=== PATIENT | male | born 1980 | race Caucasian/White ===

== ENCOUNTER 2019-11-09 00:12 | Emergency (ER) | payer OTHER, SELFPAY ==
[2019-11-09 00:15] VITALS: BP 150/97; PULSE 108; RESP 20; TEMP 36.6; O2SAT 99
--- NOTE | 2019-11-09 00:38 | ED.DENTAL ---
HPI - Dental/Oral General Chief complaint: Unspecified Stated complaint: Dental Pain Source: patient Mode of arrival: ambulatory Limitations: no limitations History of Present Illness HPI Narrative: Pain in tooth 27 with swelling and tenderness in right lip x 48 hours. Tooth extracted this AM. Has taken 2 doses of amoxicillin since then. C/o increased swelling of the lip and now pain just below the chin and the floor of his mouth. Pain is worsened by fully opening his mouth. Pt has had a tooth abscess before when amoxicillin was ineffective. Would like a stronger antibiotic. Augmentin and clindamycin have worked in the past; the latter causes abdominal pain. Severity scale (1-10): 4 Related Data Home Medications Medication Instructions Recorded Confirmed losartan 25 mg PO DAILY 07/15/19 11/09/19 Allergies Allergy/AdvReac Type Severity Reaction Status Date / Time No Known Allergies Allergy Unverified 10/03/12 08:06 Review of Systems Constitutional: Constitutional: Denies fever(s) Gastrointestinal: Gastrointestinal: Denies nausea PMFSH Past Medical History Medical History (Updated 11/09/19 @ 00:48 by Satish Calvillo MD) Hypertension Social History Social History (Updated 11/09/19 @ 00:48 by Satish Calvillo MD) Smoking status: Never smoker Gender identity (if verbalized by the patient): Male Exam HENMT: Head: other (no facial swelling or erythema) Mouth: Yes moist mucous membranes Teeth and gingiva: abnormal tooth and associated gingiva (excised and sutured tooth #27 (right mandibular canine)) and other (sublingual tenderness, not indurated. ) Eyes: General: appearance normal, both eyes and all related structures Neck: Neck: no lymphadenopathy (tender in submental node region) Course Vital Signs Vital signs: Vital Signs Temperature 36.6 C 11/09/19 00:15 Pulse Rate 108 H 11/09/19 00:15 Respiratory Rate 11/09/19 00:15 Blood Pressure 150/97 H 11/09/19 00:15 Pulse Oximetry 99 11/09/19 00:15 Temperature 36.6 C 11/09/19 00:48 Pulse Rate 108 H 11/09/19 00:48 Respiratory Rate 20 11/09/19 00:48 Blood Pressure 150/97 H 11/09/19 00:48 Pulse Oximetry 99 11/09/19 00:15 MDM - Dental/Oral MDM Narrative Medical decision making narrative: Previous dental abscess and cellulitis; worsening of the latter after tooth extraction today, vs. soft tissue increased swelling secondary to dental extraction. Amoxillin may not be effective; or may not have had time to work. Pt. does not want to wait another 24 hours to find out if symptoms will worsen. Discharge Plan Discharge Clinical Impression: Cellulitis and abscess of mouth Patient Disposition: Home, Self-Care Condition: Stable Instructions: Antibiotic Form, Dental Abscess (ED) Additional Instructions: Return if worsening symptoms. See dentist in tomorrow, 11/09 if symptoms not improved. Prescriptions: New amoxicillin-pot clavulanate [Augmentin] 875-125 mg tablet 1 tablet PO Q12H Qty: 10 RF: 0 No Action losartan 25 mg tablet 25 mg PO DAILY RF: 0 Follow-up/Referrals: Matthew Nesbitt MD [Primary Care Provider] - Time of Disposition: 00:43 Discharge Date/Time: 11/09/19 00:53
[2019-11-09 00:48] VITALS: BP 150/97; PULSE 108; RESP 20; TEMP 36.6
[2019-11-09] MEDS: AMOXICILLIN/CLAVULANATE K 875-125 MG TAB 1 TABLET PO (00:48)
== END 2019-11-09 00:53 | disposition home or self-care (01) ==
PROVIDERS: Emergency Provider Family Medicine; PCP Family Medicine
DX: K12.2 Cellulitis and abscess of mouth (principal)
CPT/HCPCS: 99283; A9270

== ENCOUNTER 2019-11-27 09:33 | Outpatient (CLI) | payer OTHER, SELFPAY ==
--- NOTE | ~2019-11-27 | XR_ITS ---
XR chest 2V DATE: 11/27/2019 09:55 INDICATION: Shortness of breath, congestion for one week. Acute nasopharyngitis TECHNIQUE: 2 views COMPARISON: 05/01/2019 portable AP chest FINDINGS: Chronic elevation of right leaf of diaphragm. Normal heart size. No hilar or mediastinal enlargement. No pulmonary infiltrate or consolidation, ple ural effusion or pulmonary vascular congestion or pneumothorax. IMPRESSION: No active cardiopulmonary disease Reviewed, dictated and finalized at location B.
[2019-11-27 10:02] LABS: Influenza Control Valid (Valid)
== END 2019-11-27 09:34 | disposition home or self-care (01) ==
PROVIDERS: PCP Family Medicine; Visit Provider Family Medicine
DX: J00 Acute nasopharyngitis [common cold] (principal)
CPT/HCPCS: 71046; 87804

== ENCOUNTER 2020-01-24 17:56 | Outpatient (CLI) | payer OTHER, SELFPAY ==
--- NOTE | ~2020-01-24 | XR_ITS ---
EXAMINATION: XR chest 2V EXAM DATE: 01/24/2020 18:07 INDICATION: Cough. TECHNIQUE: Frontal and lateral projections of the chest obtained and reviewed. Comparison is made to prior examination from 11/27/2019. FINDINGS: The lungs are clear. There are no pleural effusions. The cardiomediastinal silhouette is within normal limits. There is no pneumothorax suspected. The bones and soft tissues are unremarkab le. There is no significant interval change. IMPRESSION: No acute cardiopulmonary findings. Reviewed, dictated and finalized at location A.
== END 2020-01-24 17:57 | disposition home or self-care (01) ==
LOC: CHSIMG 17:57
PROVIDERS: PCP Family Medicine; Visit Provider Family Medicine
DX: R05 Cough (principal)
CPT/HCPCS: 71046

== ENCOUNTER 2020-02-07 08:29 | Outpatient (CLI) | payer OTHER, SELFPAY | END 2020-02-07 08:30 | disposition home or self-care (01) | PROVIDERS: PCP Family Medicine; Visit Provider Family Medicine | DX: R06.02 Shortness of breath (principal) | CPT/HCPCS: 94060; 94726; 94729; 95012 ==

== ENCOUNTER 2020-02-15 17:14 | Outpatient (CLI) | payer OTHER, SELFPAY ==
[2020-02-15 17:25] LABS: Basophils Percent Auto 1.1 % (0.0-1.0); Eosinophils Absolute Auto 0.24 K/mm3 (0.02-0.50); Eosinophils Percent Auto 2.5 % (1.0-6.0); Hemoglobin 13.9 g/dL (14.0-18.0); Immature Granulocyte Absolute 0.05 K/mm3 (0.00-0.00); Immature Granulocyte Percent A 0.5 % (0.0-0.0); Lymphocytes Absolute Auto 3.03 K/mm3 (1.10-4.50); Mean Corpuscular HGB Conc 33.9 g/dL (32.0-36.0); Mean Corpuscular Volume 82.5 fL (78.0-102.0); Mean Platelet Volume 10.2 fl (8.7-11.0); Monocytes Absolute Auto 1.01 K/mm3 (0.10-0.90); Monocytes Percent Auto 10.7 % (2.0-11.0); Neutrophils Absolute Auto 5.1 K/mm3 (1.7-7.2); Neutrophils Percent Auto 53.2 % (50.0-70.0); Platelet Count Result 305 K/mm3 (150-420); Red Blood Count 4.97 M/mm3 (4.70-6.10); White Blood Count 9.5 K/mm3 (4.8-10.8)
[2020-02-15 17:40] LABS: Alanine Aminotransferase 58 U/L (16-63); Albumin Level 3.8 g/dL (3.4-5.0); Alkaline Phosphatase 79 U/L (46-116); Anion Gap 9.8 mmol/L (7-16); Aspartate Amino Transferase 29 U/L (15-37); Bilirubin,Total 0.4 mg/dL (0.00-1.00); Blood Urea Nitrogen 14 mg/dL (7-18); Carbon Dioxide 31 mmol/L (21-32); Chloride 100 mmol/L (98-108); Estimated Glomerular Filt Rate > 60; Glucose 97 mg/dL (70-99); Osmolality Calculated 284 mOsm/kg (285-295); Potassium 3.8 mmol/L (3.5-5.1); Sodium 137 mmol/L (136-145); Total Protein 7.7 g/dL (6.4-8.2)
[2020-02-15 17:53] LABS: D Dimer 0.27 mg/L (0.19-0.50)
== END 2020-02-15 17:15 | disposition home or self-care (01) ==
LOC: CHSLAB 17:16
PROVIDERS: PCP Family Medicine; Visit Provider Family Medicine
DX: M79.662 Pain in left lower leg (principal); R60.0 Localized edema
CPT/HCPCS: 36415; 80053; 85025; 85380

== ENCOUNTER 2020-03-25 09:01 | Outpatient (CLI) | payer OTHER, SELFPAY ==
--- NOTE | ~2020-03-25 | US_ITS ---
EXAMINATION: US venous doppler LE RT EXAM DATE: 03/25/2020 09:36 INDICATION: Right lower rib pain. TECHNIQUE: Multiple grayscale, color flow and Doppler images of the right lower extremity deep venous system were obtained and reviewed. There is no prior study for comparison. FINDINGS: The right common femoral, femoral and profunda veins demonstrate normal color flow, respira tory variation, augmentation and compressibility. Compressibility, color flow confirmed within the r ight popliteal, posterior tibial, peroneal, and greater saphenous veins. IMPRESSION: 1. No right lower extremity deep venous thrombosis. Reviewed, dictated and finalized at location A.
== END 2020-03-25 09:02 | disposition home or self-care (01) ==
PROVIDERS: PCP Family Medicine; Visit Provider Family Medicine
DX: M79.661 Pain in right lower leg (principal)
CPT/HCPCS: 93971

== ENCOUNTER 2020-09-10 11:47 | Outpatient (CLI) | payer OTHER, SELFPAY ==
--- NOTE | ~2020-09-10 | XR_ITS ---
EXAMINATION: XR chest 2V EXAM DATE: 09/10/2020 12:07 INDICATION: Chest pain x 1 day at center anterior chest. TECHNIQUE: Frontal and lateral projections of the chest obtained and reviewed. Comparison is made to prior examination from 01/24/2020. FINDINGS: The lungs are clear. There are no pleural effusions. The cardiomediastinal silhouette is within normal limits. There is no pneumothorax suspected. The bones and soft tissues are unremarkab le. IMPRESSION: No acute cardiopulmonary findings. Reviewed, dictated and finalized at location B. T[employer]ER T[employer]ER
[2020-09-10 12:00] LABS: Basophils Absolute Auto 0.09 K/mm3 (0.00-0.10); Eosinophils Absolute Auto 0.15 K/mm3 (0.02-0.50); Eosinophils Percent Auto 1.6 % (1.0-6.0); Hematocrit 41.9 % (40.0-54.0); Hemoglobin 14.2 g/dL (14.0-18.0); Immature Granulocyte Absolute 0.05 K/mm3 (0.00-0.00); Immature Granulocyte Percent A 0.5 % (0.0-0.0); Lymphocytes Absolute Auto 2.34 K/mm3 (1.10-4.50); Lymphocytes Percent Auto 25.6 % (18.0-42.0); Mean Corpuscular HGB Conc 33.9 g/dL (32.0-36.0); Mean Corpuscular Hemoglobin 27.7 pg (27.0-31.0); Mean Corpuscular Volume 81.8 fL (78.0-102.0); Mean Platelet Volume 10.2 fl (8.7-11.0); Monocytes Absolute Auto 0.86 K/mm3 (0.10-0.90); Monocytes Percent Auto 9.4 % (2.0-11.0); Neutrophils Absolute Auto 5.6 K/mm3 (1.7-7.2); Neutrophils Percent Auto 61.9 % (50.0-70.0); Platelet Count Result 318 K/mm3 (150-420); Red Blood Count 5.12 M/mm3 (4.70-6.10); Red Cell Distribution Width 12.9 % (11.6-14.4); White Blood Count 9.1 K/mm3 (4.8-10.8)
[2020-09-10 12:18] LABS: D Dimer 0.29 mg/L (0.19-0.50)
[2020-09-10 12:29] LABS: Alanine Aminotransferase 57 U/L (16-63); Albumin Level 4.1 g/dL (3.4-5.0); Alkaline Phosphatase 74 U/L (46-116); Amylase 52 U/L (25-115); Anion Gap 8 mmol/L (8-16); Aspartate Amino Transferase 22 U/L (15-37); Bilirubin,Total 0.5 mg/dL (0.00-1.00); Blood Urea Nitrogen 11 mg/dL (7-18); CRP 0.7 mg/dL (0.0-0.9); Calcium 9.2 mg/dL (8.5-10.1); Carbon Dioxide 28 mmol/L (21-32); Chloride 101 mmol/L (98-108); Creatine Kinase 151 U/L (39-308); Estimated Glomerular Filt Rate > 60; Glucose 104 mg/dL (70-99); Lipase 59 U/L (73-393); Osmolality Calculated 283 mOsm/kg (285-295); Potassium 4.1 mmol/L (3.5-5.1); Sodium 137 mmol/L (136-145); Thyroid Stimulating Hormone 1.08 uIU/mL (0.36-3.74); Total Protein 8.3 g/dL (6.4-8.2); Troponin I 5.2 ng/L (0.00-60.4)
[2020-09-12 18:00] LABS: H pylori, Urea Breath NOT DETECTED (NOT DETECTED)
== END 2020-09-10 11:48 | disposition home or self-care (01) ==
LOC: CHSLAB 11:49
PROVIDERS: PCP Family Medicine; Visit Provider Nurse Practitioner Family
DX: R07.9 Chest pain, unspecified (principal)
CPT/HCPCS: 36415; 71046; 80053; 82150; 82550; 82553; 83013; 83690; 84443; 84484; 85025; 85380; 86140

== ENCOUNTER 2020-11-18 12:13 | Emergency (ER) | payer OTHER, SELFPAY ==
--- NOTE | 2020-11-18 12:20 | ECG_ITS ---
Measurements Intervals [place] Rate: 93 P: 61 MN: 160 QRS: 55 QRSD: 84 T: 43 QT: 367 QTc: 457 Interpretive Statements SINUS RHYTHM FREQUENT VENTRICULAR PREMATURE COMPLEXES INCOMPLETE RIGHT BUNDLE BRANCH BLOCK DELAYED PRECORDIAL R/S TRANSITION ABNORMAL ECG Electronically Signed On 11-18-2020 13:08:54 CDT by Edgar Zuñiga D.O.
[2020-11-18 12:21] VITALS: BP 147/87; PULSE 94; RESP 14; TEMP 36.2; O2SAT 100
[2020-11-18 12:39] LABS: Eosinophils Absolute Auto 0.23 K/mm3 (0.02-0.50); Eosinophils Percent Auto 2.4 % (1.0-6.0); Hematocrit 40.1 % (40.0-54.0); Hemoglobin 13.8 g/dL (14.0-18.0); Immature Granulocyte Absolute 0.07 K/mm3 (0.00-0.00); Immature Granulocyte Percent A 0.7 % (0.0-0.0); Lymphocytes Absolute Auto 3.04 K/mm3 (1.10-4.50); Lymphocytes Percent Auto 31.3 % (18.0-42.0); Mean Corpuscular HGB Conc 34.4 g/dL (32.0-36.0); Mean Corpuscular Hemoglobin 28.2 pg (27.0-31.0); Mean Corpuscular Volume 81.8 fL (78.0-102.0); Mean Platelet Volume 10.6 fl (8.7-11.0); Monocytes Percent Auto 8.2 % (2.0-11.0); Neutrophils Absolute Auto 5.5 K/mm3 (1.7-7.2); Neutrophils Percent Auto 56.4 % (50.0-70.0); Platelet Count Result 309 K/mm3 (150-420); Red Cell Distribution Width 12.6 % (11.6-14.4); White Blood Count 9.7 K/mm3 (4.8-10.8)
[2020-11-18] MEDS: SODIUM CHLORIDE 0.9% IV 500 ML 999 ML IV CONT (13:00)
[2020-11-18 13:06] LABS: Alanine Aminotransferase 54 U/L (16-63); Albumin Level 3.9 g/dL (3.4-5.0); Alkaline Phosphatase 72 U/L (46-116); Anion Gap 12 mmol/L (8-16); Aspartate Amino Transferase 29 U/L (15-37); Bilirubin,Total 0.7 mg/dL (0.00-1.00); Blood Urea Nitrogen 14 mg/dL (7-18); Carbon Dioxide 27 mmol/L (21-32); Chloride 99 mmol/L (98-108); Estimated CRCL calculation 98 ml/min; Estimated Glomerular Filt Rate > 60; Glucose 110 mg/dL (70-99); Osmolality Calculated 287 mOsm/kg (285-295); Potassium 3.6 mmol/L (3.5-5.1); Sodium 138 mmol/L (136-145); Thyroid Stimulating Hormone 1.28 uIU/mL (0.36-3.74); Total Protein 7.8 g/dL (6.4-8.2); Troponin I 6.1 ng/L (0.00-60.4)
--- NOTE | 2020-11-18 13:24 | ED.GENADULT ---
HPI - General Adult General Chief complaint: Unspecified Stated complaint: heart palpatations since this am Source: patient History of Present Illness HPI narrative: patient presents with feeling of palpitations started earlier today no other symptoms involved, patient denies any chest pain shortness of breath no abdominal pain no headache or blurry vision no fever or chills, currently no nausea vomiting. The patient had these palpitations start and they causing some concern for the patient although he has no other symptoms. He said he had an episode like this back when he was a teenager, the only past medical history as is that of hypertension that he was taking losartan. Patient is not a smoker and no alcohol use no illicit drug use. Onset (ago): hour(s) Severity: mild Related Data Home Medications Medication Instructions Recorded Confirmed losartan 25 mg PO DAILY 07/15/19 11/18/20 Allergies Allergy/AdvReac Type Severity Reaction Status Date / Time No Known Allergies Allergy Unverified 10/03/12 08:06 Review of Systems Review of Systems: All systems reviewed & are unremarkable except as noted in HPI and below PMFSH Past Medical History Medical History Hypertension Social History Social History Smoking status: Never smoker Gender identity (if verbalized by the patient): Male Exam Const: General: cooperative, healthy appearing, comfortable, no acute distress, well developed, alert, awake and Physically active HENMT: Head: normal to inspection Ears: hearing grossly normal bilaterally General nose exam: Normal external nose present Face and sinus: normal facial exam and sinuses nontender Throat: posterior oropharynx normal Eyes: General: appearance normal, both eyes and all related structures Visual Espino: normal visual espino by confrontation Periorbital: periorbital findings normal Sclera: sclerae normal Pupils: Equal, round and reactive pupils present Chest: Chest palpation & inspection: normal inspection of the chest Breast/axilla inspection: normal inspection of the breasts Cardio: Jugular venous distension: no JVD Palpation: normal PMI Rate: regular rate Rhythm: other ( Occasional palpitations) Heart sounds: S1 normal heart sound present and S2 normal heart sound present GI: Inspection: normal to inspection Percussion: Yes normal to percussion Back/Spine/Pelvis: Back: no CVA tenderness Skin: General skin exam: normal color and no rashes or lesions noted Neuro: General: oriented to person, oriented to place, oriented to time, patient oriented x3 and gait normal Psych: Appearance: grossly normal and well kempt Mental Status: mental status grossly normal Course Course Emergency Course: patient received IV fluids, a dose of magnesium and potassium, reviewed lab work and EKG with the patient patient is more comfortable and advised to follow with his primary care physician. Vital Signs Vital signs: Vital Signs Temperature 36.2 C L 11/18/20 12:21 Pulse Rate 94 11/18/20 12:21 Respiratory Rate 14 11/18/20 12:21 Blood Pressure 147/87 H 11/18/20 12:21 Pulse Oximetry 100 11/18/20 12:21 Temperature 36.2 C L 11/18/20 12:21 Pulse Rate 94 11/18/20 12:21 Respiratory Rate 14 11/18/20 12:21 Blood Pressure 147/87 H 11/18/20 12:21 Pulse Oximetry 100 11/18/20 12:21 Medical Decision Making Vital Signs Vital Signs: Vital Signs Temperature 36.2 C L 11/18/20 12:21 Pulse Rate 94 11/18/20 12:21 Respiratory Rate 14 11/18/20 12:21 Blood Pressure 147/87 H 11/18/20 12:21 Pulse Oximetry 100 11/18/20 12:21 Temperature 36.2 C L 11/18/20 12:21 Pulse Rate 94 11/18/20 12:21 Respiratory Rate 14 11/18/20 12:21 Blood Pressure 147/87 H 11/18/20 12:21 Pulse Oximetry 100 11/18/20 12:21 Lab Data Result diagrams: 11/18/20 12:34
[2020-11-18] MEDS: MAGNESIUM OXIDE 400 MG TABLET PO (13:38)
[2020-11-18] MEDS: POTASSIUM CHLORIDE 20 MEQ TABLET 40 MEQ PO (13:38)
[2020-11-18 13:41] VITALS: BP 119/82; PULSE 87; RESP 18; O2SAT 98
== END 2020-11-18 13:42 | disposition home or self-care (01) ==
PROVIDERS: Emergency Provider Emergency Medicine; PCP Family Medicine
DX: R00.2 Palpitations (principal); I49.3 Ventricular premature depolarization
CPT/HCPCS: 36415; 80053; 83735; 84443; 84484; 85025; 93005; 96360; 99283; 99284; A9270; J7040

== ENCOUNTER 2021-02-04 11:45 | Outpatient (CLI) | payer OTHER, SELFPAY ==
--- NOTE | ~2021-02-04 | XR_ITS ---
EXAMINATION: XR ankle RT min 3V DATE: 02/04/2021 12:11 INDICATION: Right ankle pain. TECHNIQUE: 4 views of right ankle were obtained. COMPARISON: None. FINDINGS: Bone alignment is normal. No fracture. There is mild osteoarthritis of talonavicular joint. There is an enthesophyte at posterior aspect of calcaneal tuberosity. IMPRESSION: 1. Mild osteoarthritis of talonavicular joint. Reviewed, dictated and finalized at location A.
== END 2021-02-04 11:46 | disposition home or self-care (01) ==
LOC: CHSIMG 11:47
PROVIDERS: PCP Family Medicine; Visit Provider Family Medicine
DX: M25.571 Pain in right ankle and joints of right foot (principal)
CPT/HCPCS: 73610

== ENCOUNTER 2021-04-10 08:33 | Outpatient (CLI) | payer OTHER, SELFPAY ==
--- NOTE | 2021-04-11 12:47 | WPDHOLTEREM ---
Holter/Event Monitor Holter/Event Monitor Date of procedure: 04/10/21 Holter/Event Procedure: 24 Hr Holter Monitor Indications: Palpitations Conclusion: 1. 24 hour holter monitor on 04/10/21. 2. Underlying rhythm is sinus rhythm. HR range 46-162 bpm; average HR 78 bpm. 3. There is 1 premature supraventricular complex. No supraventricular tachycardia. 4. No premature ventricular complex. No ventricular tachycardia. 5. No sinoatrial or atrioventricular blocks. No significant pauses greater than 2 seconds. 6. No symptoms available for correlation.
== END 2021-04-10 08:34 | disposition home or self-care (01) ==
LOC: CHSCARD 08:35
PROVIDERS: PCP Family Medicine; Visit Provider Family Medicine
DX: R00.2 Palpitations (principal)
CPT/HCPCS: 93225; 93226

== ENCOUNTER 2021-05-12 11:15 | Outpatient (CLI) | payer OTHER, SELFPAY ==
[2021-05-12 13:01] LABS: SARS-CoV-2 RNA PCR Negative (Negative)
== END 2021-05-12 11:16 | disposition home or self-care (01) ==
LOC: CHSLAB 11:18
PROVIDERS: PCP Family Medicine; Visit Provider Family Medicine
DX: J02.9 Acute pharyngitis, unspecified (principal); Z20.822 Contact with and (suspected) exposure to COVID-19
CPT/HCPCS: 87081; 87880; C9803; U0003; U0005

== ENCOUNTER 2022-03-27 16:16 | Outpatient (CLI) | payer OTHER, SELFPAY ==
[2022-03-27 17:13] LABS: Strep Group A RT-PCR Negative (Negative)
[2022-03-27 17:15] LABS: Influenza A QL RT-PCR Negative (Negative); Influenza B QL RT-PCR Negative (Negative); SARS-CoV-2 RNA PCR Negative (Negative)
== END 2022-03-27 16:17 | disposition home or self-care (01) ==
LOC: CHSLAB 16:18
PROVIDERS: PCP Family Medicine; Visit Provider Family Medicine
DX: J02.9 Acute pharyngitis, unspecified (principal); Z20.822 Contact with and (suspected) exposure to COVID-19
CPT/HCPCS: 87502; 87651; C9803; U0003; U0005

== ENCOUNTER 2023-04-19 16:37 | Outpatient (CLI) | payer OTHER, SELFPAY ==
[2023-04-19 17:36] LABS: Influenza A QL RT-PCR Negative (Negative); Influenza B QL RT-PCR Negative (Negative); SARS-CoV-2 RNA PCR Negative (Negative)
[2023-04-19 17:41] LABS: Strep Group A RT-PCR NOT DETECTED (Negative)
== END 2023-04-19 16:38 | disposition home or self-care (01) ==
LOC: CHSLAB 16:39
PROVIDERS: PCP Family Medicine; Visit Provider Family Medicine
DX: J06.9 Acute upper respiratory infection, unspecified (principal); Z20.822 Contact with and (suspected) exposure to COVID-19
CPT/HCPCS: 87636; 87651

== ENCOUNTER 2023-05-01 13:23 | Outpatient (CLI) | payer OTHER, SELFPAY ==
--- NOTE | ~2023-05-01 | XR_ITS ---
AP and lateral views of the right tibia/fibula Clinical History: Trauma Findings: No acute fracture or dislocation is seen. Osseous alignment is anatomic. Joint spaces are p reserved without significant erosive or degenerative change. Soft tissues are unremarkable. Impression: Unremarkable right tib-fib radiographs. Reviewed, dictated and finalized at [facility]. Impression: Unremarkable right tib-fib radiographs.
== END 2023-05-01 13:24 | disposition home or self-care (01) ==
LOC: CHSIMG 13:26
PROVIDERS: PCP Family Medicine; Visit Provider Family Medicine
DX: M79.604 Pain in right leg (principal)
CPT/HCPCS: 73590

== ENCOUNTER 2023-05-10 13:10 | Outpatient (CLI) | payer OTHER, SELFPAY ==
[2023-05-10 13:56] LABS: Influenza A QL RT-PCR Negative (Negative); Influenza B QL RT-PCR Negative (Negative); SARS-CoV-2 RNA PCR Positive (Negative)
[2023-05-10 14:11] LABS: Strep Group A RT-PCR NOT DETECTED (Negative)
== END 2023-05-10 13:11 | disposition home or self-care (01) ==
LOC: CHSLAB 13:12
PROVIDERS: PCP Family Medicine; Visit Provider Family Medicine
DX: U07.1 COVID-19 (principal); J06.9 Acute upper respiratory infection, unspecified
CPT/HCPCS: 87636; 87651

== ENCOUNTER 2023-08-09 16:09 | Outpatient (CLI) | payer OTHER, SELFPAY ==
[2023-08-09 16:31] LABS: Basophils Absolute Auto 0.12 K/mm3 (0.00-0.10); Eosinophils Absolute Auto 0.24 K/mm3 (0.02-0.50); Eosinophils Percent Auto 2.1 % (1.0-6.0); Hematocrit 41.4 % (40.0-54.0); Hemoglobin 13.7 g/dL (14.0-18.0); Immature Granulocyte Absolute 0.09 K/mm3 (0.00-0.00); Immature Granulocyte Percent A 0.8 % (0.0-0.0); Lymphocytes Absolute Auto 3.47 K/mm3 (1.10-4.50); Mean Corpuscular HGB Conc 33.1 g/dL (32.0-36.0); Mean Corpuscular Hemoglobin 27.6 pg (27.0-31.0); Mean Corpuscular Volume 83.3 fL (78.0-102.0); Mean Platelet Volume 10.4 fl (8.7-11.0); Monocytes Absolute Auto 1.12 K/mm3 (0.10-0.90); Monocytes Percent Auto 9.7 % (2.0-11.0); Neutrophils Absolute Auto 6.5 K/mm3 (1.7-7.2); Neutrophils Percent Auto 56.4 % (50.0-70.0); Platelet Count Result 355 K/mm3 (150-420); Red Blood Count 4.97 M/mm3 (4.70-6.10); Red Cell Distribution Width 13.2 % (11.6-14.4); White Blood Count 11.6 K/mm3 (4.8-10.8)
[2023-08-09 16:39] LABS: D Dimer 0.27 mg/L (0.19-0.50)
[2023-08-09 16:45] LABS: Alanine Aminotransferase 60 U/L (16-63); Albumin Level 3.8 g/dL (3.4-5.0); Alkaline Phosphatase 70 U/L (46-116); Anion Gap 1 mmol/L (8-16); Aspartate Amino Transferase 26 U/L (15-37); Bilirubin,Total 0.4 mg/dL (0.00-1.00); Blood Urea Nitrogen 11 mg/dL (7-18); Calcium 9.2 mg/dL (8.5-10.1); Carbon Dioxide 34 mmol/L (21-32); Chloride 101 mmol/L (98-108); Estimated Glomerular Filt Rate > 60; Glucose 97 mg/dL (70-99); Osmolality Calculated 281 mOsm/kg (285-295); Potassium 4.2 mmol/L (3.5-5.1); Sodium 136 mmol/L (136-145); Total Protein 7.9 g/dL (6.4-8.2)
== END 2023-08-09 16:10 | disposition home or self-care (01) ==
LOC: CHSLAB 16:11
PROVIDERS: PCP Family Medicine; Visit Provider Family Medicine
DX: M79.652 Pain in left thigh (principal)
CPT/HCPCS: 36415; 80053; 85025; 85380

== ENCOUNTER 2023-09-28 10:36 | Outpatient (CLI) | payer OTHER, SELFPAY ==
[2023-09-28 11:12] LABS: Strep Group A RT-PCR NOT DETECTED (Negative)
[2023-09-28 11:23] LABS: Influenza A QL RT-PCR Negative (Negative); Influenza B QL RT-PCR Negative (Negative); SARS-CoV-2 RNA PCR Negative (Negative)
== END 2023-09-28 10:37 | disposition home or self-care (01) ==
LOC: CHSLAB 10:37
PROVIDERS: PCP Family Medicine; Visit Provider Family Medicine
DX: J02.9 Acute pharyngitis, unspecified (principal)
CPT/HCPCS: 87636; 87651

== ENCOUNTER 2023-12-07 16:54 | Emergency (ER) | payer OTHER, SELFPAY ==
[2023-12-07 16:54] VITALS: BP 166/95; PULSE 99; RESP 16; TEMP 36.7; O2SAT 100
--- NOTE | 2023-12-07 16:57 | ED.EAR ---
HPI - Ear Problem General Chief complaint: Ear Stated complaint: ear pain Time Seen by Provider: 12/07/23 16:57 Source: patient Mode of arrival: ambulatory Limitations: no limitations History of Present Illness HPI Narrative: Patient is a 43-year-old male with left ear pain for the past day. Complaint: ear pain Location: left ear Duration: constant Severity: moderate Relieving factors: nothing Exacerbating factors: palpation Discharge from ear: Reports no Associated symptoms ear: decreased hearing and external ear tenderness ( Left) Treatment prior to arrival: none Related Data Home Medications Medication Instructions Recorded Confirmed losartan 25 mg tablet 25 mg PO DAILY 07/15/19 12/07/23 Allergies Allergy/AdvReac Type Severity Reaction Status Date / Time No Known Allergies Allergy Verified 12/07/23 17:06 Review of Systems Review of Systems: All systems reviewed & are unremarkable except as noted in HPI and below Constitutional: Constitutional: Reports no additional constitutional complaints Eyes: Eyes: Reports no additional eye complaints ENT: Reports system reviewed and no additional complaints, except as documented Cardiovascular: Cardiovascular: Reports no additional cardiovascular complaints Respiratory: Respiratory: Reports no additional respiratory complaints Gastrointestinal: Gastrointestinal: Reports no additional gastrointestinal complaints Genitourinary: Genitourinary: Reports no additional male genitourinary complaints Musculoskeletal: Musculoskeletal: Reports no additional musculoskeletal complaints Integumentary/Breasts: Skin/Breast: Reports system reviewed and no additional complaints, except as docu Neurologic: Reports system reviewed and no additional complaints, except as documented Psychiatric: Psychiatric: Reports no additional psychiatric complaints Endocrine: Endocrine: Reports no additional endocrine complaints Hematologic/Lymphatic: Hematologic/Lymphatic: Reports no additional hematologic/lymphatic complaints Allergic/Immunologic: Allergic/Immunologic: Reports no additional allergic/immunologic complaints PMFSH Past Medical History Medical History Hypertension Social History Social History Smoking status: Never smoker Gender identity (if verbalized by the patient): Male Exam Const: General: healthy appearing Nutritional Appearance: well nourished Orientation/consciousness: patient oriented x3 HENMT: Head: normal to inspection Ears: external ears normal Face/Nose/Sinus: Normal external nose present Other: left auditory canal is red and inflamed and tender; unable to completely see the tympanic membrane but it does appear somewhat red; wax bilateral Eyes: Conjunctivae: conjunctivae normal Pupils: Equal, round and reactive pupils present EOM: EOMs intact bilaterally Neck: Neck: normal visual inspection Chest: Chest palpation & inspection: normal inspection of the chest Resp: Effort & Inspection: normal respiratory effort and not labored Auscultation: clear to auscultation bilaterally Cardio: Rate: regular rate Rhythm: regular rhythm Heart sounds: no murmurs GI: Inspection: non-distended GI Palp: Yes Soft to palpation and No Tenderness to palpation present (GI) Auscultation: normal bowel sounds : General: Yes bladder normal to palpation Back/Spine/Pelvis: Back: no CVA tenderness Skin: General skin exam: normal color Rashes: no rashes Wounds: no wounds Neuro: General: patient oriented x3 Cranial nerves: Yes Nystagmus not present Speech: normal speech Extrem: General: normal to inspection Psych: Mental Status: mental status grossly normal Affect: normal affect Attitude: cooperative Course Vital Signs Vital signs: Vital Signs Temperature 36.7 C 12/07/23 16:54 Pulse Rate 99 12/07/23 16:54 Respi
== END 2023-12-07 17:35 | disposition home or self-care (01) ==
LOC: CHSED 17:29
PROVIDERS: Emergency Provider Emergency Medicine; PCP Family Medicine
DX: H60.502 Unspecified acute noninfective otitis externa, left ear (principal); H66.92 Otitis media, unspecified, left ear; I10 Essential (primary) hypertension
CPT/HCPCS: 99283

== ENCOUNTER 2024-02-03 16:51 | Emergency (ER) | payer OTHER, SELFPAY ==
[2024-02-03 17:15] VITALS: BP 171/96; PULSE 90; RESP 18; TEMP 36.6; O2SAT 97
--- NOTE | 2024-02-03 18:26 | ED.ANIMALBIT ---
HPI - Animal Bite General Chief Complaint: Animal Bite Stated Complaint: bat encounter, ?rabies vaccine?, from pcp Time Seen by Provider: 02/03/24 17:35 History of Present Illness HPI narrative: 43-year-old male presents to the emergency department with concerns for eating a possible rabies vaccination. Patient states 2 days ago he was standing around his pool when he noticed a bat flying around the pool. It was sitting on the concrete then approximately 7 ft away from him. He contacted animal control and was asked if the bat mold runner bit him to which he believed it did not. He then followed up with his PCP who advised the patient to come to the ED for further evaluation. The patient does not recall being bitten or scratched by the bat but he wants a 2nd opinion to see if he needs a rabies vaccine. no other complaints. Related Data Home Medications Medication Instructions Recorded Confirmed losartan 25 mg tablet 25 mg PO DAILY 07/15/19 12/07/23 Allergies Allergy/AdvReac Type Severity Reaction Status Date / Time No Known Allergies Allergy Verified 02/03/24 17:41 Review of Systems Review of Systems: CONSTITUTIONAL: Denies fever, chills, or sweats. EYES: Denies visual changes, redness, or discharge. ENT: Denies rhinorrhea, congestion, sore throat, or otalgia. CARDIOVASCULAR: Denies chest pain, palpitations, or edema. RESPIRATORY: Denies cough or dyspnea. GASTROINTESTINAL: Denies abdominal pain, nausea, vomiting, or diarrhea. GENITOURINARY: Denies dysuria or hematuria. SKIN: See HPI MUSCULOSKELETAL: Denies back pain, joint pain, or myalgia. NEUROLOGIC: Denies headache, numbness, or weakness. PSYCHIATRIC: Denies anxiety or depression. PMFSH Past Medical History Medical History Hypertension Social History Social History Smoking status: Never smoker Gender identity (if verbalized by the patient): Male Exam Narrative: GENERAL: Well-appearing, well-nourished, and in no acute distress. HEAD: Normocephalic, atraumatic. EYES: PERRLA and EOMI. ENT: Nares clear, no rhinorrhea or epistaxis. Mucous membranes moist. NECK: Supple. CHEST: Clear to auscultation. No respiratory distress. HEART: Regular rate and rhythm. No murmur heard. Normal peripheral pulses. EXTREMITIES: Normal range of motion. No edema. SKIN: no scratch days, bite rader, puncture wounds or skin compromise throughout scalp, face, back, chest abdomen, upper and lower extremities, hands and feet. NEURO: No focal deficits. Alert and oriented x3 Course Vital Signs Vital signs: Vital Signs Temperature 97.8 F 02/03/24 17:15 Pulse Rate 90 02/03/24 17:15 Respiratory Rate 18 02/03/24 17:15 Blood Pressure 171/96 H 02/03/24 17:15 Pulse Oximetry 97 02/03/24 17:15 Oxygen Delivery Room Air 02/03/24 17:15 Temperature 97.8 F 02/03/24 17:15 Pulse Rate 90 02/03/24 17:15 Respiratory Rate 18 02/03/24 17:15 Blood Pressure 171/96 H 02/03/24 17:15 Pulse Oximetry 97 02/03/24 17:15 Oxygen Delivery Room Air 02/03/24 17:15 MDM - Animal Bite MDM Narrative Medical decision making narrative: 43-year-old male presents to emergency department desiring a 2nd opinion or if he needs a rabies vaccine. He does not recall being bitten or scratched by the bat but wants to be evaluated. He has no other complaints. Triage vital significant for hypertension of 171/96, otherwise unremarkable. He does have a history of hypertension. I did a full skin exam is and did not identify any puncture wounds or scratches, there are no bite rader. He I feel since the patient was awake and alert and he was outside and he does not recall a specific scratch or bite, there is no need for rabies vaccination at this time. He is in agreement with this. Will discharge him home with PCP follow-up. Return precautions discu
== END 2024-02-03 18:40 | disposition home or self-care (01) ==
PROVIDERS: Emergency Provider Physician Assistant; PCP Family Medicine
DX: Z20.3 Contact with and (suspected) exposure to rabies (principal); I10 Essential (primary) hypertension
CPT/HCPCS: 99282

== ENCOUNTER 2024-03-01 16:32 | Outpatient (CLI) | payer OTHER, SELFPAY ==
--- NOTE | ~2024-03-01 | XR_ITS ---
3 VIEWS LUMBAR SPINE Ordering provider: Matthew Nesbitt MD History: . Low back pain . Comparison: None. FINDINGS: VERTEBRAL BODIES: No visible fracture or subluxation. Degenerative changes of the lower thoracic area . DISK SPACES: Normal. Facet joint disease at the level of L4-L5 and L5-S1. SOFT TISSUES: Normal. IMPRESSION: No acute osseous abnormality lumbar spine. Consider follow up MRI lumbar spine if there is concern for spinal stenosis/neural impingement. Reviewed, dictated and finalized at location A. IMPRESSION: No acute osseous abnormality lumbar spine. Consider follow up MRI lumbar spine if there is concern for spinal stenosis/john ral impingement.
== END 2024-03-01 16:33 | disposition home or self-care (01) ==
LOC: CHSIMG 16:34
PROVIDERS: PCP Family Medicine; Visit Provider Family Medicine
DX: M54.50 Low back pain, unspecified (principal)
CPT/HCPCS: 72100

== ENCOUNTER 2024-03-21 15:52 | Outpatient (RCR) | payer OTHER, SELFPAY ==
--- NOTE | 2024-03-21 16:48 | OPREHPOC ---
Outpatient Therapy Plan of Care This is a Multidisciplinary Plan of Care that may contain components documented by all disciplines (PT, OT, and ST.) PT Problem 1 PT Problem #1 Knowledge Deficit PT Goal 1 Goal 1. independent and compliant with HEP Target Visit 4 PT Problem 2 PT Problem #2 Pain PT Goal 1 Goal 1. no pain in the lower back with prior level activities Target Visit 9 PT Problem 3 PT Problem #3 Impaired Strength PT Goal 1 Goal 1. 5/5 bilateral hip ext 2. 4/5 core strength Target Visit 9 PT Problem 4 PT Problem #4 Impaired Functional Mobil PT Goal 1 Goal 1. full active lumbar rom without pain 2. patient to ambulate with normal gait mechanics 3. oswestry to display 0% functional deficits 4. patient to return to skate boarding and functional activities with his son Target Visit 9
--- NOTE | 2024-03-21 16:49 | PTOPEVAL1 ---
Assessment and note entered by JT File, PT Evaluation Information Assessment Status Evaluation ICD-10 Condition Codes (PT) Pain in low back M54.50 Onset 02/15/24 Subjective Information patient reports around 02/15/24, he was skate boarding and was awkwardly positioned trying to learn a trick on a half pipe. 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 he reports he has increased pain and symptoms with laying on his side and let his L leg hang down. he reports sitting is a bit uncomfortable. he reports he does have pain at times along the L hip and down the L thigh. he has had an x-ray with results of mild arthritis. he reports he would like to get back to skate boarding and also sitting to work and perform home activities without pain. Reported Pain Level Pain Score 2: Self Report Assessment PT Clinical Summary mr. conde is a 43 yo man who presents to skilled PT services for evaluation and treatment of lower back pain that radiates into the L LE from an injury while skate boarding with his son. he presents this date with no signs of discoid involvement, but likely an acute flare up of facet hypertrophy. he displays decreased core strength, weak hip extension, tight hip mm's, and poor posture. continued skilled PT is indicated to improve patients objective/functional deficits and progress towards a return to his prior level functional activity performance quality of life. Plan of Care Interventions Electrical Stimulation,Gait Training,Hot Pack/Cold Pack,Manual Therapy,Neuro Re-education,Patient/ Caregiver Educati,Therapeutic Activities, Therapeutic Exercise PT Services Indicated Yes Treatment Frequency and 3x weekly for 9 visits Duration These treatments will address the objective and functional deficits as defined above. The patient will be advanced safely and appropriately in order for the patient to progress towards his/her prior level of function. Additional exercises will be introduced and as well as a comprehensive home exercise program upon discharge, if needed, ?to ensure carryover of functional gains achieved in the clinic. This treatment plan has been reviewed and agreement upon by the patient.
--- NOTE | 2024-03-23 07:48 | PCPTNOTE ---
Patient cancelled session today. He reports he will now be working until 6 pm every day and is not sure if he can make therapy at all. Pt reports he will do his stretches, and call his doctor if he is not getting better.
--- NOTE | 2024-04-11 16:47 | OPREHPOC ---
Outpatient Therapy Plan of Care This is a Multidisciplinary Plan of Care that may contain components documented by all disciplines (PT, OT, and ST.) PT Problem 1 PT Problem #1 Knowledge Deficit PT Goal 1 Goal 1. independent and compliant with HEP Target Visit 4 Progress Met PT Problem 2 PT Problem #2 Pain PT Goal 1 Goal 1. no pain in the lower back with prior level activities Target Visit 9 PT Problem 3 PT Problem #3 Impaired Strength PT Goal 1 Goal 1. 5/5 bilateral hip ext 2. 4/5 core strength Target Visit 9 PT Problem 4 PT Problem #4 Impaired Functional Mobil PT Goal 1 Goal 1. full active lumbar rom without pain 2. patient to ambulate with normal gait mechanics 3. oswestry to display 0% functional deficits 4. patient to return to skate boarding and functional activities with his son 5. mild or less bilateral piriformis mm tightness 6. 20 degrees or less bilateral hamstrings tightness per the 90/90 test Target Visit 9
--- NOTE | 2024-04-11 16:47 | PTOPPROG ---
Assessment and note entered by JT File, PT Evaluation Information Assessment Status Progress ICD-10 Condition Codes (PT) Pain in low back M54.50 Onset 02/15/24 Subjective Information patient reports pain is increased in the mornings. he reports he gets some relief with jogging in place. 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 he reports he has been doing some of his exercises at home, but still has pain in the lower back and some times along the L LE. Assessment PT Clinical Summary mr. conde has not been to skilled PT since his initial evaluation on 03/21/24. he returns to skilled PT today with reports of a more open schedule, and reports he is now able to be compliant with a bi-weekly POC. he continues to have deficits in hip extension strength, core strength, flexibility, and functional activity performance. he is also limited due to pain in the lower back and L LE. continued skilled PT is indicated to improve patients objective/functional deficits to achieve goals and return to prior level functional activity performance. Plan of Care Interventions Electrical Stimulation,Gait Training,Hot Pack/Cold Pack,Manual Therapy,Neuro Re-education,Patient/ Caregiver Educati,Therapeutic Activities, Therapeutic Exercise PT Services Indicated Yes Treatment Frequency and continue skilled PT 2x weekly for 9 total visits Duration from initial evaluation. These treatments will address the objective and functional deficits as defined above. The patient will be advanced safely and appropriately in order for the patient to progress towards his/her prior level of function. Additional exercises will be introduced and as well as a comprehensive home exercise program upon discharge, if needed, ?to ensure carryover of functional gains achieved in the clinic. This treatment plan has been reviewed and agreement upon by the patient.
== END 2024-04-13 08:30 | disposition home or self-care (01) ==
LOC: CHSPT 15:52
PROVIDERS: Visit Provider Family Medicine
DX: M54.50 Low back pain, unspecified (principal)
CPT/HCPCS: 97110; 97112; 97140; 97161

== ENCOUNTER 2024-04-25 09:54 | Outpatient (CLI) | payer OTHER, SELFPAY ==
[2024-04-25 10:36] LABS: Strep Group A RT-PCR NOT DETECTED (Negative)
[2024-04-25 10:46] LABS: SARS-CoV-2 RNA PCR Positive (Negative)
[2024-04-25 10:49] LABS: Influenza A QL RT-PCR Negative (Negative); Influenza B QL RT-PCR Negative (Negative); RSV RNA, RT-PCR Negative (Negative)
== END 2024-04-25 09:55 | disposition home or self-care (01) ==
LOC: CHSLAB 09:56
PROVIDERS: PCP Family Medicine; Visit Provider Family Medicine
DX: U07.1 COVID-19 (principal); J06.9 Acute upper respiratory infection, unspecified
CPT/HCPCS: 87637; 87651

== ENCOUNTER 2024-05-24 23:35 | Emergency (ER) | payer OTHER, SELFPAY ==
[2024-05-24 23:38] VITALS: BP 178/112; PULSE 103; RESP 18; TEMP 36.2; O2SAT 98
--- NOTE | 2024-05-24 23:49 | ED.MALEGU ---
HPI - Male Genitourinary General Chief complaint: Urogenital-Male Stated complaint: Testicular Problem Time Seen by Provider: 05/24/24 23:48 Source: patient Mode of arrival: ambulatory Limitations: no limitations History of Present Illness HPI Narrative: PATIENT COMPLAINING OF SOME PAIN AND REDNESS AT THE RIGHT SIDE OF THE SCROTUM STARTED 4 DAYS AGO. STARTED ON BACTRIM AND CEPHALIC SEEN 2 DAYS LATER BY HIS FAMILY PHYSICIAN. PATIENT CAME TO OUR EMERGENCY ROOM CONCERNING ABOUT THE POSSIBILITY OF CANCER. HE DENIES ANY FEVER, CHILLS, NAUSEA, VOMITING. PATIENT IS NOT SEXUALLY ACTIVE FOR THE LAST 3 YEARS. DENIES ANY URINARY SYMPTOMS. Related Data Home Medications Medication Instructions Recorded Confirmed losartan 25 mg tablet 25 mg PO DAILY 07/15/19 05/24/24 Allergies Allergy/AdvReac Type Severity Reaction Status Date / Time No Known Allergies Allergy Verified 05/24/24 23:51 Review of Systems Review of Systems: All systems reviewed & are unremarkable except as noted in HPI and below PMFSH Past Medical History Medical History Hypertension Social History Social History Smoking status: Never smoker Gender identity (if verbalized by the patient): Male Exam Narrative: GENERAL APPEARANCE: WELL-DEVELOPED, WELL-NOURISHED SKIN: NORMAL COLOR ABDOMEN: SOFT, NONTENDER, NO ORGANOMEGALY, QUIET BOWEL SOUNDS . GENITAL EXAM SHOWING SLIGHT TENDERNESS, SLIGHT ERYTHEMATOUS CHANGES 1 CM X 1 CM DIAMETER, NO DISCHARGE, NO DISCOLORATION, NO FLUCTUATION AT THE RIGHT SIDE OF THE SCROTUM CLOSE TO THE GROIN AREA. 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, NO GROSS MOTOR DEFICIT Course Vital Signs Vital signs: Vital Signs Temperature 36.2 C L 05/24/24 23:38 Pulse Rate 103 H 05/24/24 23:38 Respiratory Rate 18 05/24/24 23:38 Blood Pressure 178/112 H 05/24/24 23:38 Pulse Oximetry 98 05/24/24 23:38 Oxygen Delivery Room Air 05/24/24 23:38 Temperature 36.2 C L 05/24/24 23:38 Pulse Rate 103 H 05/24/24 23:38 Respiratory Rate 18 05/24/24 23:38 Blood Pressure 178/112 H 05/24/24 23:38 Pulse Oximetry 98 05/24/24 23:38 Oxygen Delivery Room Air 05/24/24 23:38 MDM - Male Genitourinary MDM Narrative Medical decision making narrative: DIFFERENTIAL DIAGNOSIS INCLUDE FOLLICULITIS, CELLULITIS PATIENT WAS ADVISED TO USE WARM COMPRESSES, AND CONTINUE ANTIBIOTIC. ALSO TO TAKE TYLENOL, IBUPROFEN NEEDED. PATIENT DECLINED TO BE OF WORK Differential Diagnosis Differential diagnosis: Likely other ( FOLLICULITIS, CELLULITIS) Critical Care Time Critical Care Time Critical Care Time: No Discharge Plan Discharge Clinical Impression: Folliculitis Condition: Stable Instructions: Antibiotic Form, Folliculitis (ED) Additional Instructions: RETURN IF SYMPTOMS ARE WORSENING , CALL YOUR FAMILY PHYSICIAN FOR APPOINTMENT, TAKE TYLENOL NEEDED FOR ACHES AND PAIN, CONTINUE HOME MEDICATIONS. IBUPROFEN 600 EVERY 6 HOURS NEEDED FOR PAIN WARM COMPRESSES Prescriptions: No Action losartan 25 mg tablet 25 mg PO DAILY Rx Instructions: daily Follow-up/Referrals: Matthew Nesbitt MD [Primary Care Provider] -
== END 2024-05-25 | disposition home or self-care (01) ==
PROVIDERS: Emergency Provider Emergency Medicine; PCP Family Medicine
DX: L73.9 Follicular disorder, unspecified (principal); I10 Essential (primary) hypertension
CPT/HCPCS: 99281

== ENCOUNTER 2024-07-31 15:51 | Outpatient (CLI) | payer OTHER, SELFPAY ==
--- NOTE | ~2024-07-31 | CT_ITS ---
EXAMINATION: CT pelvis wo con DATE: 07/31/2024 16:09 INDICATION: Pelvic and perineal pain. TECHNIQUE: Computed tomography (CT) of the pelvis was performed without intravenous contrast. Automat ed exposure control and iterative reconstruction technique were employed. The dose-length product was 762.69 mGy-cm. COMPARISON: None FINDINGS: There are no dilated loops of bowel. The appendix is normal. There are bilateral inguinal h ernias containing fat. There are no pathologically enlarged lymph nodes. There is no free intraperito pierre fluid. There is mild osteoarthritis of the hips. There is mild lumbar spondylosis. Osseous pubis is noted. IMPRESSION: 1. Bilateral inguinal hernias containing fat. Reviewed, dictated and finalized at location [facility]
== END 2024-07-31 15:52 | disposition home or self-care (01) ==
PROVIDERS: PCP Family Medicine; Visit Provider Family Medicine
DX: R10.2 Pelvic and perineal pain (principal); K40.20 Bilateral inguinal hernia, without obstruction or gangrene, not specified as recurrent
CPT/HCPCS: 72192

== ENCOUNTER 2024-08-13 22:23 | Emergency (ER) | payer OTHER, SELFPAY ==
[2024-08-13 22:29] VITALS: BP 150/97; PULSE 77; RESP 18; TEMP 36.6; O2SAT 98
--- NOTE | 2024-08-13 22:43 | ED.GENADULT ---
HPI - General Adult General Chief complaint: Unspecified Stated complaint: GROIN PAIN Time Seen by Provider: 08/13/24 22:43 Source: patient Mode of arrival: ambulatory Limitations: no limitations History of Present Illness HPI narrative: 44 years old white male came to the ED complaining of right groin pain and right thigh pain anteriorly started 2 days ago after falling of skateboard. Patient had CT abdomen and pelvis 2 weeks ago for rectal pain was told that he have bilateral inguinal hernia. Was seen by a surgeon and schedule for possible surgery September 2024. He denies any fever, chills, nausea, vomiting, diarrhea, constipation, urinary symptoms. Patient reports the pain at the right groin area on the right thigh gets worse with activities hot, better at rest. Related Data Home Medications ?Medication ?Instructions ?Recorded ?Confirmed ?Last Taken ?Type losartan 25 mg tablet 25 mg PO DAILY 07/15/19 08/13/24 02/02/24 History Allergies Allergy/AdvReac Type Severity Reaction Status Date / Time No Known Allergies Allergy Verified 08/08/24 15:07 Review of Systems Review of Systems: All systems reviewed & are unremarkable except as noted in HPI and below PMFSH Past Medical History Medical History Hypertension Social History Social History Smoking status: Never smoker Do You Feel Safe in your Home?: Yes Lack of Transportation: No Lack of Food: Never True Current Housing: I Have Housing Concerned About Future Housing: No Difficulty Paying Gas/Electric Bills: No Difficulty Paying for Meds: No Currently Unemployed: No Education: High School Diploma/GED Gender identity (if verbalized by the patient): Male Exam Narrative: General appearance: Well-developed, well-nourished Skin: Normal color Head: Normocephalic, nontraumatic Eyes: Clear conjunctiva ENT: Oropharynx normal, ears normal, nose normal Neck: Supple, nontender Chest and respiratory: Airway patent, no respiratory distress, no accessory muscle use Heart: Regular rate/rhythm Abdomen: Soft, nontender, no organomegaly, quiet bowel sounds mild tenderness right groin area with deep palpation, no bulging or lymphadenopathy or mass Musculoskeletal: Right lower leg examination showed mild tenderness at the right thigh anteriorly, midline, no swelling, no bruises Neurologic: Alert and oriented ?3, SCIENCE LIAISON is normal as tested, no gross motor deficit Course Vital Signs Vital signs: Vital Signs Temperature 36.6 C 08/13/24 22:29 Pulse Rate 77 08/13/24 22: Respiratory Rate 18 08/13/24 22:29 Blood Pressure 150/97 H 08/13/24 22:29 Pulse Oximetry 98 08/13/24 22:29 Oxygen Delivery Room Air 08/13/24 22:29 Temperature 36.6 C 08/13/24 22: Pulse Rate 77 08/13/24 22:29 Respiratory Rate 18 08/13/24 22:29 Blood Pressure 150/97 H 08/13/24 22:29 Pulse Oximetry 98 08/13/24 22:29 Oxygen Delivery Room Air 08/13/24 22:29 Medical Decision Making MDM Narrative Medical decision making narrative: patient had history bilateral inguinal hernia discovered accidentally with CT scan of the abdomen and pelvis Patient very anxious and worried about the complication of inguinal hernia including incarceration or strangulation. Physical examination showed no inguinal hernia at this time. Patient was advised take Tylenol, ibuprofen as needed and follow up with his surgeon. Falling of skateboard with the underlying cause of his right thigh pain and possible right groin pain which got aggravated with fall No blood tests or imaging are required at this time. Vital Signs Vital Signs: Vital Signs Temperature 36.6 C 08/13/24 22:29 Pulse Rate 77 08/13/24 22:29 Respiratory Rate 18 08/13/24 22:29 Blood Pressure 150/97 H 08/13/24 22:29 Pulse Oximetry 98 08/13/24 22:29 Oxygen Delivery Room Air 08/13/24 22:29 Temperature 36.6 C 08/13/24 22:29 Pulse Rate 77 08/13/24 22:29 Respiratory Rate 18 08/13/24 22:29 Blood Pressure 150/97 H 08/13/24 22:29 Pulse Oximetry 98 08/13/24 22:29 Oxygen Delivery Room Air 08/13/24 22:29 Discharge Plan Discharge Clinical Impression: Inguinal hernia, Muscle pain Patient Disposition: Home, Self-Care Condition: Stable Instructions: Inguinal Hernia (ED), Contusion in Adults (ED) Additional Instructions: Return if symptoms are worsening , call your family physician for appointment, take Tylenol , ibuprofen as as needed for aches and pain, continue home medications. Patient Language: Luxembourgish Prescriptions: No Action losartan 25 mg tablet 25 mg PO DAILY Rx Instructions: daily Follow-up/Referrals: Matthew Nesbitt MD [Primary Care Provider] -
[2024-08-13 22:49] VITALS: BP 144/85; PULSE 74; RESP 18; O2SAT 98
--- OUTSIDE RECORDS SUMMARY | 2024-08-19 05:51 | XMS_ITS | Encounter Summary ---
Author Organization [facility] Address [address] [place] [address]. [place] [address] [place] [address] Care Team Providers Care Carriage Setter Name Role Phone Unavailable Primary Care Provider Unavailabl e Encounter Details Date Type Department Care Team (Late st Contact Info) Description 03/06/2008 Abstract [facility] [address] [place] [address] Erlinda Noriega MD [address] [place] [id number] Social History Tobacco Use Types Packs/Day Years Used Date Smoking Tobacco: Never Assessed Sex and Gender Information Value Date Recorded Sex Assigned at Not on file Legal Sex Male 7:27 PM CDT Gender Identity Not on file Sexual Orientation Not on file documented as of this encounter Plan of Treatment Not on file documented as of this encounter Visit Diagnoses Not on filedocumented in this encounter
--- OUTSIDE RECORDS SUMMARY | 2024-08-19 05:51 | XMS_ITS | Encounter Summary ---
Author Organization [facility] Address [address] [facility] [place] [address] [place] [address] Care Team Providers Care Older Worker Specialist Name Role Phone Matthew Nesbitt MD Primary Care Provider [phone] Encounter Details Date Type Department Care Team (Late st Contact Info) Description 01/28/2016 Abstract [facility] Services [address] [place] [address] Alex Crandall MD [address] [place] [address] Social History Tobacco Use Types Packs/Day Years Used Date Smoking Tobacco: Never Assessed AUDIT-C Answer Date Recorded Frequency of Alcohol Consumption Never 06/15/2019 Average Number of Drinks Not on file 019 Frequency of Binge Drinking Not on file 05/30 Sex and Gender Information Value Date Recorded Sex Assigned at Not on file Legal Sex Male 7:27 PM CDT Gender Identity Not on file Sexual Orientation Not on file documented as of this encounter Plan of Treatment Not on file documented as of this encounter Visit Diagnoses Not on filedocumented in this encounter Care Teams Older Worker Specialist Relationship Specialty Start Date End Date Matthew Nesbitt MD [address] [place] [address] PCP - General FAMILY PRACTICE 06/15/19 documented as of this encounter
--- OUTSIDE RECORDS SUMMARY | 2024-08-19 05:51 | XMS_ITS | Encounter Summary ---
Author Organization [facility] Address [address] [facility] [place] [address] [place] [address] Care Team Providers Care Cartographic Technician Name Role Phone Matthew Nesbitt MD Primary Care Provider [phone] Encounter Details Date Type Department Care Team (Late st Contact Info) Description 03/31/2019 Abstract [facility] [address] [place] [address] Alex Crandall MD [address] [place] [address] Social History Tobacco Use Types Packs/Day Years [...] on filedocumented in this encounter Care Teams Cartographic Technician Relationship Specialty Start Date End Date Matthew Nesbitt MD [address] [place] [address] PCP - General FAMILY PRACTICE 06/15/19 documented as of this encounter
--- OUTSIDE RECORDS SUMMARY | 2024-08-19 05:51 | XMS_ITS | Encounter Summary ---
Author Organization [facility] Address [facility] [place] [address] [place] [address] Care Team Providers Care Round Kiln Drawer Name Role Phone Matthew Nesbitt MD Primary Care Provider [phone] Encounter Details Date Type Department Care Team (Late st Contact Info) Description 03/15/2018 Abstract [facility] Emergency Services [address] [place] [address] Jamal Loomis MD [address] [place] [address] Social History Tobacco Use Types Packs/Day Years [...] on filedocumented in this encounter Care Teams Round Kiln Drawer Relationship Specialty Start Date End Date Matthew Nesbitt MD [address] [place] [address] PCP - General FAMILY PRACTICE 06/15/19 documented as of this encounter
--- OUTSIDE RECORDS SUMMARY | 2024-08-19 05:51 | XMS_ITS | Encounter Summary ---
Author Organization [facility] Address [facility] [facility] [place] [address] [place] [address] Care Team Providers Care Photography Intern Name Role Phone Matthew Nesbitt MD Primary Care Provider [phone] Encounter Details Date Type Department Care Team (Late st Contact Info) Description 10/14/2017 Abstract [facility] [address] [place] [address] Matthew Nesbitt MD [address] [place] [address] Social History Tobacco Use Types Packs/Day Years [...] on filedocumented in this encounter Care Teams Photography Intern Relationship Specialty Start Date End Date Matthew Nesbitt MD [address] [place] [address] PCP - General FAMILY PRACTICE 06/15/19 documented as of this encounter
--- OUTSIDE RECORDS SUMMARY | 2024-08-19 05:51 | XMS_ITS | Encounter Summary ---
Author Organization [facility] Address [address] [place] [address]. [place], [place] [address] [place] [address] Care Team Providers Care Repair Service Clerk Name Role Phone Unavailable Primary Care Provider Unavailabl e Encounter Details Date Type Department Care Team (Latest Contact Info) Description 11/16/2012 Abstract [facility] Social History Tobacco Use Types Packs/Day Years [...]
--- OUTSIDE RECORDS SUMMARY | 2024-08-19 05:51 | XMS_ITS | Encounter Summary ---
Author Organization [facility] Address [facility] [facility] [place] [address] [place] [address] Care Team Providers Care Blockmason Name Role Phone Matthew Nesbitt MD Primary Care Provider [phone] Encounter Details Date Type Department Care Team (Late st Contact Info) Description 06/16/2019 Abstract [facility] Emergency Services [address] [place] [address] Javier Justin MD [address] [place] [id number] Social History Tobacco Use Types Packs/Day Years [...] on filedocumented in this encounter Care Teams Blockmason Relationship Specialty Start Date End Date Matthew Nesbitt MD [address] [place] [address] PCP - General FAMILY PRACTICE 06/15/19 documented as of this encounter
--- OUTSIDE RECORDS SUMMARY | 2024-08-19 05:51 | XMS_ITS | Encounter Summary ---
Author Organization [facility] Address [facility] [facility] [place] [address] [place] [address] Care Team Providers Care Garage Mechanic Name Role Phone Matthew Nesbitt MD Primary Care Provider Encounter Details Date Type Department Care Team (Late st Contact Info) Description 11/13/2017 Abstract [facility] Emergency Services [address] [place] [address] Wm Beavers MD Social History Tobacco Use Types Packs/Day Years [...] on filedocumented in this encounter Care Teams Garage Mechanic Relationship Specialty Start Date End Date Matthew Nesbitt MD [address] [place] [address] PCP - General FAMILY PRACTICE 06/15/19 documented as of this encounter
--- OUTSIDE RECORDS SUMMARY | 2024-08-19 05:51 | XMS_ITS | Encounter Summary ---
Author Organization [facility] Address Critical access hospital6 [facility] [place] [address] [place] [address] Care Team Providers Care Chief Medical Physicist Name Role Phone Matthew Nesbitt MD Primary Care Provider [phone] Reason for Visit * Reason Comments Skin Problem Pt arrives to ED wit h c/o pain and swelling under right eye, area on right side of neck and feels like right nare is swollen. Has been on abx for root canal for past month. Encounter Details Date Type Department Care Team (Late st Contact Info) Description 06/15/2019 8:12 PM CDT - 06/15/2019 8:39 PM CDT Emergency [facility] [place] [address] Andrez Samayoa MD [address] [place] [id number] Skin Problem (Pt arrives to ED with c/o pain and swelling under right eye, area on right side of neck and feels like right nare is swollen. Has been on abx for root canal for past month.) Discharge Disposition: Home or Self Care (Routine Discharge) Social History Tobacco Use Types Packs/Day Years Used Date Smoking Tobacco: Never Smokeless Tobacco: Never Alcohol Use Standard Drinks/Week Comments No 0 (1 standard drink = 0.6 oz pur e alcohol) AUDIT-C Answer Date Recorded Frequency of Alcohol Consumption Never 06/15/2019 Average Number of Drinks Not on file 019 Frequency of Binge Drinking Not on file 05/30 Sex and Gender Information Value Date Recorded Sex Assigned at Not on file Legal Sex Male 7:27 PM CDT Gender Identity Not on file Sexual Orientation Not on file documented as of this encounter Last Filed Vital Signs Vital Sign Reading Time Taken Comments Blood Pressure 157/97 06/15/2019 7:56 PM CDT Pulse 89 06/15/2019 7:56 PM CDT Temperature 36.1 ??C (96.9 ??F) 06/15/2019 7:56 PM CD T Respiratory Rate 18 06/15/2019 7:56 PM CDT Oxygen Saturation 98% 06/15/2019 7:56 PM CDT Inhaled Oxygen Concentration - - Weight 103.9 kg (229 lb) 06/15/2019 7:56 PM CDT Height 167.6 cm (5' 6 ) 06/15/2019 7:56 PM CDT Body Mass Index 36.96 06/15/2019 7:56 PM CDT documented in this encounter Discharge Instructions * Attachments The following attachments cannot be sent through Care Everywhere. * Shingles (Uzbek) documented in this encounter Medications at Time of Discharge hydrocodone-aceta minophen 5-325 MG tabletIndications :Acute Pain < 3 Day Supply Take 1-2 tablets by mouth every 6 (six) hours as needed. Indications: Acute Pain < 3 Day Supply 12 tablet 06/15/2019 losartan 25 MG tablet 06/07/2019 valACYclovir 1 g tablet Take 1 tablet (1,000 mg total) by mouth 3 (three) times daily. 21 tablet 06/15/2019 documented as of this encounter ED Notes * Andrez Samayoa MD - 06/15/2019 7:50 PM CDT eMERGENCY dEPARTMENT eNCOUnter CHIEF COMPLAINT Chief Complaint Patient presents with ??? Skin Problem Pt arrives to ED with c/o pain and swelling under right eye, area on right side of neck and feels like right nare is swollen. Has been on abx for root canal for past month. HPI HPI Tam Mari is a 38-year-old male who presents to the ER with a complaint of noticing a painful lesion on his face just to the right of his nose as well as a painful area inside the right nose withsome discomfort in the right side of his neck. This is all just started over the last day or 2. He is recently been treated for infected teeth but states that when that happened he had swelling around his gums and was treated with antibiotics and eventually a root canal. Denies fevers or chills andhe did have chickenpox as a child. No history of shingles no other complaints this time. ALLERGIES No Known Allergies CURRENT MEDICATIONS Current Outpatient Medications Medication Sig ??? hydrocodone-acetaminophen 5-325 MG tablet Take 1-2 tablets by mouth every 6 (six) hours as needed. Indications: Acute Pain < 3 Day Supply ??? valACYclovir 1 g tablet Take 1 tablet (1,000 mg total) by mouth 3 (three) times daily. ??? losartan 25 MG tablet PAST MEDICAL HISTORY Past Medical History: Diagnosis Date ??? Hypertension SURGICAL HISTORY History reviewed. No pertinent surgical history. SOCIAL HISTORY Social History Socioeconomic History ??? Marital status: Not on file Spouse name: Not on file ??? Number of children: Not on file ??? Years of education: Not on file ??? Highest education level: Not on file Occupational History ??? Not on file Social Needs ??? Financial resource strain: Not on file ??? Food insecurity: Worry: Not on file Inability: Not on file ??? Transportation needs: Medical: Not on file Non-medical: Not on file Tobacco Use ??? Smoking status: Never Smoker ??? Smokeless tobacco: Never Used Substance and Sexual Activity ??? Alcohol use: No Frequency: Never ??? Drug use: No ??? Sexual activity: Not on file Lifestyle ??? Physical activity: Days per week: Not on file Minutes per session: Not on file ??? Stress: Not on file Relationships ??? Social connections: Talks on phone: Not on file Gets together: Not on file Attends spiritism service: Not on file Active member of club or organization: Not on file Attends meetings of clubs or organizations: Not on file Relationship status: Not on file ??? Intimate partner violence: Fear of current or ex partner: Not on file Emotionally abused: Not on file Physically abused: Not on file Forced sexual activity: Not on file Other Topics Concern ??? Not on file Social History Narrative ??? Not on file FAMILY HISTORY No family history on file. REVIEW OF SYSTEMS Review of Systems All other ROS negative unless noted above in HPI. PHYSICAL EXAM Physical Exam Filed Vitals: 06/15/191955 BP: (!) 157/97 Pulse: 89 Resp: 18 Temp: 96.9 ??F (36.1 ??C) TempSrc: Temporal SpO2: 98% Weight: 103.9 kg (229 lb) Height: 5' 6 (1.676 m) The patient is a well developed and well nourished adult male in no distress, alert and oriented. HEENT: PERRL, EOMI Nose without drainage but there appears to be a vesicular lesion just on the inside of the right nasal vestibule Ears unremarkable Throat without lesions, mucous membranes moist NECK: Supple without adenopathy or rigidity, there is no adenopathy and no obvious lesions except for some erosions which appear to be related to shaving and seems similar to the other side SKIN: There is one raised erythematous lesion over the right maxillary area and possibly a second smaller one on the right lateral nose EKG RADIOLOGY No orders to display LABS No results found for this visit on 06/15/19. ED MEDICATIONS Medications valACYclovir (VALTREX) tablet 1,000 mg (1,000 mg Oral Given 06/15/192030) hydrocodone-acetaminophen (NORCO) 5-325 MG tablet 2 tablet (2 tablets Oral Given 06/15/192030) PROCEDURES Procedures CONSULTS: ED COURSE & MEDICAL DECISION MAKING MDM Concern is that this could be the beginning of shingles. I cannot be 100% sure since the amount of lesions are small at this point in time but because of high suspicion we will start him on antiviralas well as pain medication and recommend close outpatient follow-up. This does not appear to be a bacterial sinus infection at this time so we will withhold antibiotics. FINAL IMPRESSION SNOMED CT(R) 1. Shingles HERPES ZOSTER Recheck with your doctor in the next several days if not improving or please return here if worse New Prescriptions HYDROCODONE-ACETAMINOPHEN 5-325 MG TABLET Take 1-2 tablets by mouth every 6 (six) hours as needed. Indications: Acute Pain < 3 Day Supply VALACYCLOVIR 1 G TABLET Take 1 tablet (1,000 mg total) by mouth 3 (three) times daily. Andrez Samayoa MD 06/15/192031 documented in this encounter Plan of Treatment Not on file documented as of this encounter Visit Diagnoses Diagnosis Shingles- Primary Herpes zoster without mention of complication documented in this encounter Administered Medications Inactive Administered Medications - up to 3 most recent administrations Medication Order MAR Action Action Date Dose Rate Site hydrocodone-acetaminophen (NORCO) 5-325 MG tablet 2 tablet 2 tablet, Oral, Once, 1 dose, On Aimee 06/15/19 at 2029 Given 06/15/2019 8:31 PM CDT 2 tablets valACYclovir (VALTREX) tablet 1,000 mg 1,000 mg, Oral, Once, 1 dose, On Aimee 06/15/19 at 2029 Given 06/15/2019 8:31 PM CDT 1,000 mg documented in this encounter Active and Recently Administered Medications Times are shown in CDT. Scheduled Medication Order 06/13/2019 06/14/2019 06/15/2019 hydrocodone-acetaminophen (NORCO) 5-325 MG tablet 2 tablet (COMPLETED) 2 tablet, Oral, Once, 1 dose, On Aimee 06/15/19 at 2029 2030 (Given - Provid er: Cassidy Egan RN) valACYclovir (VALTREX) tablet 1,000 mg (COMPLETED) 1,000 mg, Oral, Once, 1 dose, On Aimee 06/15/19 at 2029 2030 (Given - Provid er: Cassidy Egan RN) documented in this encounter Care Teams Chief Medical Physicist Relationship Specialty Start Date End Date Matthew Nesbitt MD [address] [place] [address] PCP - General FAMILY PRACTICE 06/15/19 documented as of this encounter
--- OUTSIDE RECORDS SUMMARY | 2024-08-19 05:51 | XMS_ITS | Clinical Summary ---
Author Organization [facility] Address [facility] [place] [address] [place] [address] Care Team Providers Care Furnace Repairer Helper Name Role Phone Matthew Nesbitt MD Primary Care Provider [phone] Allergies No known active allergies Medications losartan 25 MG tablet 06/07/2019 Active valACYclovir 1 g tablet Take 1 tablet (1,000 mg total) by mouth 3 (three) times daily. 21 tablet 06/15/2019 Active hydrocodone-felix taminophen 5-325 MG tabletIndicatio ns:Acute Pain < 3 Day Supply Take 1-2 tablets by mouth every 6 (six) hours as needed. Indications: Acute Pain < 3 Day Supply 12 tablet 06/15/2019 Active Social History Tobacco Use Types Packs/Day Years [...] on file Sexual Orientation Not on file Last Filed Vital Signs Vital Sign Reading [...] Mass Index 36.96 06/15/2019 7:56 PM CDT Plan of Treatment Health Maintenance Due Date Last Done Comments Annual Physical 1984 Hepatitis C 1999 DTaP, Tdap and Td Vaccines ( 1 - Tdap) 2000 Hepatitis B Vaccines (1 of 3 - 19+ 3-dose series) 2000 COVID-19 Vaccine (2023-2 5 season) 2024 Influenza Adult (#1) 2024 HPV Vaccines Aged Out No longer eligi ble based on patient's age to complete this topic Meningococcal Vaccine Aged Out No devonte melinda eligible based on patient's age to complete this topic Pneumococcal Vaccine: Pediat rics (0 to 5 Years) and At-Risk Patients (6 to 64 Years) Aged Out No longer eligible b ased on patient's age to complete this topic RSV Immunizations Under 20 Months Aged Out No longer eligible based on patient's age to complete this topic Insurance [employer] Care Teams Furnace Repairer Helper Relationship Specialty Start Date End Date Matthew Nesbitt MD [address] [place], [place] [id number] PCP - General FAMILY PRACTICE 06/15/19
--- OUTSIDE RECORDS SUMMARY | 2024-08-19 05:51 | XMS_ITS | Encounter Summary ---
Author Organization [facility] Address [address] [facility] [place] [address] [place] [address] Care Team Providers Care Registered Nurse Practitioner Name Role Phone Matthew Nesbitt MD Primary Care Provider [phone] Encounter Details Date Type Department Care Team (Late st Contact Info) Description 03/05/2016 [facility] [address] [place] [address] Alex Crandall MD [address] [place] [phone] Social History Tobacco Use Types Packs/Day Years [...] on filedocumented in this encounter Care Teams Registered Nurse Practitioner Relationship Specialty Start Date End Date Matthew Nesbitt MD [address] [place] [address] PCP - General FAMILY PRACTICE 06/15/19 documented as of this encounter
--- OUTSIDE RECORDS SUMMARY | 2024-08-19 05:55 | XMS_ITS | Encounter Summary ---
Author Organization [facility] Address [address] [place] [address] Phone Care Team Providers Care Ampoule Examiner Name Role Phone Matthew Nesbitt MD Primary Care Provider Reason for Visit * Reason Onset Date Comments Appointment 11/15/2019 11/17/19 Encounter Details Date Type Department Care Team (Late st Contact Info) Description 11/15/2019 Telephone [facility] - Gastroenterology [facility] [address] [place] [address] Meri Stephens MD [address] [place] [address] Appointment (11/17/19) Social History Tobacco Use Types Packs/Day Years Used Date Smoking Tobacco: Never Smokeless Tobacco: Never Alcohol Use Standard Drinks/Week Comments Not Currently 0 (1 standard drink = 0.6 oz pur e alcohol) Sex and Gender Information Value Date Recorded Sex Assigned at Not on file Legal Sex Male 7:55 AM COMPUTER TYPESETTER Gender Identity Not on file Sexual Orientation Not on file COVID-19 Exposure Response Date Recorded In the last month, have you been in contact with someone who was confirmed or suspected to have Coronavirus / COVID-19? No / Unsure 11/15/2019 2:35 PM CDT documented as of this encounter Miscellaneous Notes * Telephone Encounter - Cassidy Parada RN - 11/20/2019 9:54 AM CDT Patient returned call. Patient notified and will let our office know. * Telephone Encounter - Cassidy Parada RN - 11/20/2019 9:31 AM CDT Images from the original note were not included. Meri Stephens MD You 4 days ago The patient does not get better with Pepcid twice daily in 2 weeks, we can bring him for an EGD if [facility] is still doing elective cases at that time. Routing comment Left message on machine for patient to return call to office. * Telephone Encounter - Cassidy Parada RN - 11/16/2019 9:06 AM CDT Patient returned call. Notified and verbalized understanding. * Telephone Encounter - Cassidy Parada RN - 11/16/2019 8:49 AM CDT Images from the original note were not included. Meri Stephens MD You 11 hours ago (9:13 PM) Yes, he can take pepcid 20mg twice daily. I ordered it. If the virus situation improves, we can always see him in the clinic early. Routing comment Left message on machine for patient to return call to office. * Telephone Encounter - Cassidy Parada RN - 11/15/2019 2:29 PM CDT Patient rescheduled from 11/17/19 for COVID-19 precautions. Chart updated/reviewed. Travel screeningdone. Concerns: 1. Patient asking if he should maybe try to take something for a possible ulcer, because he is not sure what else to do. 2. Abdominal pain mostly after he eats. Intermittent pain in belly button/slightly below. Sitting at desk can increase his pain. Appetite is great. No increased pain with pressure. Nothing helps the pain 3. Last summer patient took a lot of antibiotics and that is when his stomach issues started. documented in this encounter Plan of Treatment Not on file documented as of this encounter Visit Diagnoses Not on filedocumented in this encounter Care Teams Ampoule Examiner Relationship Specialty Start Date End Date Matthew Nesbitt MD [address] [place] [address] PCP - General Pediatrics 08/24/19 documented as of this encounter
--- OUTSIDE RECORDS SUMMARY | 2024-08-19 05:55 | XMS_ITS | Encounter Summary ---
Author Organization [email or web address] Care Team Providers Care Sewer Cleaner Name Role Phone Matthew Nesbitt MD Primary Care Provider [phone] Encounter Details Date Type Department Care Team (Latest Contact Info) Description 11/15/2019 Travel Social History Tobacco Use Types Packs/Day Years Used Date Smoking Tobacco: Never Smokeless Tobacco: Never Alcohol Use Standard Drinks/Week Comments Not Currently 0 (1 standard drink = 0.6 oz pur e alcohol) Sex and Gender Information Value Date Recorded Sex Assigned at Not on file Legal Sex Male 7:55 AM MARKETING TRAINEE Gender Identity Not on file Sexual Orientation Not on file COVID-19 Exposure Response Date Recorded In the last month, have you been in contact with someone who was confirmed or suspected to have Coronavirus / COVID-19? No / Unsure 11/15/2019 2:35 PM CDT documented as of this encounter Plan of Treatment Not on file documented as of this encounter Visit Diagnoses Not on filedocumented in this encounter Care Teams Sewer Cleaner Relationship Specialty Start Date End Date Matthew Nesbitt MD [address] [place] [address] PCP - General Pediatrics 08/24/19 documented as of this encounter
--- OUTSIDE RECORDS SUMMARY | 2024-08-19 05:55 | XMS_ITS | Clinical Summary ---
Author Organization [facility] Address [address] [place] [address] Phone Care Team Providers Care Sales Specialist Name Role Phone Matthew Nesbitt MD Primary Care Provider Allergies No known active allergies Medications losartan (COZAAR) 25 MG Tablet nightly. 9 Active dicyclomine (BENTYL) 20 MG Tablet Take 1 Tab by mouth every 6 hours. 30 Tab 0 Active Additional Information Patient not taking.Reported on 09/28/2019 famotidine (PEPCID) 20 MG Tablet Take 1 Tab by mouth 2 times daily. 90 Tab 0 Active Family History Medical History Relation Name Comments Hypertension Father Colon Cancer Maternal Grandmother Diabetes Mother Hypertension Mother Relation Name Status Comments Father Maternal Grandmother Mother Social History Tobacco Use Types Packs/Day Years Used Date Smoking Tobacco: Never Smokeless Tobacco: Never Tobacco Cessation:Counseling Given: No Alcohol Use Standard Drinks/Week Comments Not Currently 0 (1 standard drink = 0.6 oz pur e alcohol) Sex and Gender Information Value Date Recorded Sex Assigned at Not on file Legal Sex Male 7:55 AM COMPOUND FINISHER Gender Identity Not on file Sexual Orientation Not on file Last Filed Vital Signs Vital Sign Reading Time Taken Comments Blood Pressure 126/95 10/16/2019 12:59 PM COMPOUND FINISHER Pulse 106 10/16/2019 12:59 PM COMPOUND FINISHER Temperature 36 ??C (96.8 ??F) 10/16/2019 12:59 PM COMPOUND FINISHER Respiratory Rate 14 10/16/2019 12:59 PM COMPOUND FINISHER Oxygen Saturation 100% 10/16/2019 12:59 PM COMPOUND FINISHER Inhaled Oxygen Concentration - - Weight 102.1 kg (225 lb) 09/28/2019 3:00 PM COMPOUND FINISHER Height 167.6 cm (5' 6 ) 09/28/2019 3:00 PM COMPOUND FINISHER Body Mass Index 36.32 09/28/2019 3:00 PM COMPOUND FINISHER Plan of Treatment Health Maintenance Due Date Last Done Comments Hepatitis B Immunization (1 of 3 - 19+ 3-dose series) 2000 Influenza Immunization (#1) 2024 SARS-COV-2 Immunization ( - 2023-25 season) 2024 Respiratory Syncytial Virus (RSV) Immunization (Adult) (1 - 1-dose 75+ series) 2056 DTaP/Tdap/Td Immunization Discontinued 11/15/2012 TdaP Immunization Completed 11/15/2012 Hepatitis C Virus (HCV) Screening Completed 020 Meningococcal Immunization (ACWY) Aged Out No longer eligible based on patient's age to complete this topic Pneumococcal Immunization Combined Aged Out No longer eligible b ased on patient's age to complete this topic Rotavirus Immunization Aged Out No lo nger eligible based on patient's age to complete this topic Procedures Procedure Name Priority Date/Time Associated Diagnosis Comments HEPATITIS PANEL ACUTE (AHP) Routine 09/07/2019 Elevated ALT measurement from Last 3 Months or Most Recently Relevant to Health Maintenance Results * HEPATITIS PANEL ACUTE (AHP) (09/07/2019) Blood specimen (specimen) Yolie Allen SCALE INSTALLER, SENIOR DATASTAGE DEVELOPER HEMATOLOGY ORDERA BLES Final Result from Last 3 Months or Most Recently Relevant to Health Maintenance Insurance MEDICAID [place] Care Teams Sales Specialist Relationship Specialty Start Date End Date Matthew Nesbitt MD [address] [place] [phone] PCP - General Pediatrics 08/24/19
--- OUTSIDE RECORDS SUMMARY | 2024-08-19 05:55 | XMS_ITS | Encounter Summary ---
Author Organization [facility] Address [address] [place] [address] Phone Care Team Providers Care Sleeve Ironer Name Role Phone Matthew Nesbitt MD Primary Care Provider Encounter Details Date Type Department Care Team (Late st Contact Info) Description 11/06/2019 Telephone [facility] - [facility]astro[facility] [address] [place] [address] Meri Stephens MD [address] [place] [address] Social History Tobacco Use Types Packs/Day Years Used Date Smoking Tobacco: Never Smokeless Tobacco: Never Alcohol Use Standard Drinks/Week Comments Not Currently 0 (1 standard drink = 0.6 oz pur e alcohol) Sex and Gender Information Value Date Recorded Sex Assigned at Not on file Legal Sex Male 7:55 AM SURGERY AIDE Gender Identity Not on file Sexual Orientation Not on file documented as of this encounter Miscellaneous Notes * Telephone Encounter - Dona West RMA - 11/06/2019 9:49 AM CDT Images from the original note were not included. Meri Stephens MD Hummel, Randi M, PORTABLE MACHINE CUTTER, SLATE TRIMMER 4 days ago There is no concern for cancer so for either on the CT scan or during colonoscopy. Just ensure the patient that there is no major finding on the CT scan. ??I will see him in the clinic on November 16. Routing comment Yolie Allen APN, SLATE TRIMMER Meri Stephens MD 5 days ago Could you please take a peek at this patients chart based on his new complaints Colon was normal CT showed gallbladder polyp vs sludge, abd us showed no abnormality. Would you like him to have EGD prior to his follow up OV with you or just wait till he sees you to discuss these concerns? Routing comment You routed conversation to Yolie Allen APN, BEVERLY 5 days ago You 5 days ago Pt called stating he has a OV with vlad on 10/19/2019, but would like to ask you for some advise. Pt states he's lost 10 lbs since his colonoscopy and is scared something may have been missed in his CTor something like Cancer . Pt sates no nausea, vomiting , or diarrhea, and not change in diet. please advise Documentation Tam Mari You Pt notified documented in this encounter Plan of Treatment Not on file documented as of this encounter Visit Diagnoses Not on filedocumented in this encounter Care Teams Sleeve Ironer Relationship Specialty Start Date End Date Matthew Nesbitt MD [address] [place] [address] PCP - General Pediatrics 08/24/19 documented as of this encounter
--- OUTSIDE RECORDS SUMMARY | 2024-08-19 05:56 | XMS_ITS | Encounter Summary ---
Author Organization [facility] Address [address] [place] [address] Phone Care Team Providers Care Grooming Assistant Name Role Phone Matthew Nesbitt MD Primary Care Provider Encounter Details Date Type Department Care Team (Late st Contact Info) Description 10/02/2019 Telephone [facility] - Gastroenterology [facility] [address] [place] [phone] Zbigniew Gallardo, DO [address] [address] Social History Tobacco Use Types Packs/Day Years Used Date Smoking Tobacco: Never Smokeless Tobacco: Never Alcohol Use Standard Drinks/Week Comments Not Currently 0 (1 standard drink = 0.6 oz pur e alcohol) Sex and Gender Information Value Date Recorded Sex Assigned at Not on file Legal Sex Male 7:55 AM ENSEMBLE MEMBER Gender Identity Not on file Sexual Orientation Not on file documented as of this encounter Miscellaneous Notes * Telephone Encounter - Cassidy Parada RN - 10/02/2019 3:23 PM CST Opened in error MBLE MEMBER documented in this encounter Plan of Treatment Not on file documented as of this encounter Visit Diagnoses Not on filedocumented in this encounter Care Teams Grooming Assistant Relationship Specialty Start Date End Date Matthew Nesbitt MD [address] [place] [address] PCP - General Pediatrics 08/24/19 documented as of this encounter
--- OUTSIDE RECORDS SUMMARY | 2024-08-19 05:56 | XMS_ITS | Encounter Summary ---
Author Organization [facility] Address [address] [place] [address] Phone Care Team Providers Care Police Judge Name Role Phone Matthew Nesbitt MD Primary Care Provider Encounter Details Date Type Department Care Team (Late st Contact Info) Description 09/26/2019 Telephone [facility] - Gastroenterology [facility] [address] [place] [phone] Yolie Allen APRN, BEEF GRINDER [address] [address] Social History Tobacco Use Types Packs/Day Years Used Date Smoking Tobacco: Never Smokeless Tobacco: Never Alcohol Use Standard Drinks/Week Comments Not Currently 0 (1 standard drink = 0.6 oz pur e alcohol) Sex and Gender Information Value Date Recorded Sex Assigned at Not on file Legal Sex Male 7:55 AM POTATO SORTER Gender Identity Not on file Sexual Orientation Not on file documented as of this encounter Miscellaneous Notes * Telephone Encounter - Cassidy Parada RN - 09/26/2019 1:24 PM CST Patient notified of results. Patient verbalizes understanding. TO SORTER * Telephone Encounter - Yolie Allen, NURSING PROGRAM MANAGER, BEEF GRINDER - 09/26/2019 1:12 PM POTATO SORTER LFT and hepatitis serology negative Continue low fat diet Recheck LFT 6 months TO SORTER documented in this encounter Plan of Treatment Scheduled Orders Name Type Priority Associated Diagnoses Orde r Schedule HEPATIC FUNCTION PANEL Lab Routine Fatty liver Expected: 03/26/2020, Expires: 09/26/2020 documented as of this encounter Visit Diagnoses Diagnosis Fatty liver- Primary Other chronic nonalcoholic liver disease documented in this encounter Care Teams Police Judge Relationship Specialty Start Date End Date Matthew Nesbitt MD [address] [place] [address] PCP - General Pediatrics 08/24/19 documented as of this encounter
--- OUTSIDE RECORDS SUMMARY | 2024-08-19 05:56 | XMS_ITS | Encounter Summary ---
Author Organization [facility] Address [address] [place] [address] Phone Care Team Providers Care Grinder And Honer Operator Automatic Name Role Phone Matthew Escamilla MD Primary Care Provider [phone] Reason for Visit * Auth/Cert Specialty Diagnoses / Procedures Referred By Contac t Referred To Contact Diagnoses PERIUMBILICAL PAIN Procedures COLONOSCOPY Referral ID Status Reason Start Date Expiration Date Visits Re quested Visits Authorized [id number] 1 1 Encounter Details Date Type Department Care Team (Late st Contact Info) Description 10/16/2019 12:00 PM PIPE FITTER AMMONIA - 10/16/2019 12:30 PM PIPE FITTER AMMONIA Surgery [facility] Periop [address] [place] [address] Meri Stephens MD [address] [place] [address] COLONOSCOPY-RIGHT COLON BIOPSIES, LEFT COLON BIOPSIES, HEMORRHOIDS, NORMAL COLON, NORMAL TERMINAL ILEUM Surgery Details Date/Time Status Location OR Service Patient Class Case Class Case Type Trauma Case? 10/16/2019 12:00 PM Posted [facility] GI 01 Gastroenterology [facility] Ambulatory Surgery Panel 1 Procedure LRB Anes Op Region Wound Class Comments COLONOSCOPY-RIGHT COLON BIOPSIES, LEFT COLON BIOPSIES, HEMORRHOIDS, NORMAL COLON, NORMAL TERMINAL ILEUM N/A Monitored Anesthesia Care Surgeon Surgeon Role Service Panel Meri Stephens MD Primary Gastroenterolo gy 1 Special Needs BF 10/16 documented in this encounter Social History Tobacco Use Types Packs/Day Years Used Date Smoking Tobacco: Never Smokeless Tobacco: Never Alcohol Use Standard Drinks/Week Comments Not Currently 0 (1 standard drink = 0.6 oz pur e alcohol) Sex and Gender Information Value Date Recorded Sex Assigned at Not on file Legal Sex Male 7:55 AM PIPE FITTER AMMONIA Gender Identity Not on file Sexual Orientation Not on file documented as of this encounter Last Filed Vital Signs Vital Sign Reading Time Taken Comments Blood Pressure 143/101 10/16/2019 11:46 AM PIPE FITTER AMMONIA Pulse 118 10/16/2019 11:46 AM PIPE FITTER AMMONIA pt very nervous Temperature 36 ??C (96.8 ??F) 10/16/2019 11: 46 AM PIPE FITTER AMMONIA Respiratory Rate 20 10/16/2019 11:4 6 AM PIPE FITTER AMMONIA Oxygen Saturation - - Inhaled Oxygen Concentration - - Weight 102.1 kg (225 lb) 09/28/2019 3:00 PM PIPE FITTER AMMONIA Height 167.6 cm (5' 6 ) 09/28/2019 3:00 PM PIPE FITTER AMMONIA Body Mass Index 36.32 09/28/2019 3:00 PM PIPE FITTER AMMONIA documented in this encounter Discharge Instructions * Discharge Instructions* Janel Mckinley RN - 10/16/2019 1:03 PM PIPE FITTER AMMONIA YOU HAD A COLONOSCOPY TODAY. DR. MERI STEPHENS FOUND: BIOPSY/BIOPSIES TAKEN. CALL OFFICE FOR BIOPSY RESULTS IN 2 WEEKS AT [phone] HEMORRHOIDS Recommendations: -Repeat colonoscopy in 10 years -OTC fiber and stool softeners if constipated or having to strain at the time of bowel movement. Can try preparation H OTC suppository ( containing phenylephrine) at bed time if you notice significant rectal bleeding in the future from hemorrhoids and leave it for atleast 12 hours in the night. This will help shrink the hemorrhoids temporarily and stop the bleeding. -Our office will call you with the biopsy results in about a week time. DO NOT DRIVE, WORK, OPERATE MACHINERY OR USE POWER TOOLS UNTIL DAY AFTER PROCEDURE. NO ALCOHOL BEVERAGES TODAY FOLLOWING DAY: RETURN TO FULL ACTIVITY, INCLUDING WORK, UNLESS INSTRUCTED OTHERWISE. Call doctor's office ([phone]) or go to Emergency room for: Difficulty Breathing, Headache Or Visual Disturbances Persistent Dizziness Or Light-Headedness Persistent Nausea and Vomiting Temperature greater then 100.0 Significant abdominal pain, chest pain, or bleeding. Here at [facility] we strive to provide excellent care to each of our patients, along with an easy transition between departments, starting with registration until discharge. Through our excellent care and services, we hope that you would recommend our services to your family and friends. You will receive a follow-up phone call in 24-48 hours after your procedure to see how you are doing. This gives our patients the opportunity to recognize any members from our team, from housekeepers, to nurses, to physicians, that you felt gave you excellent service as well as any suggestions for improvement. We hope you found our facility clean and our mission partners courteous. You may also receiving a survey in the mail. We would appreciate it if you could complete the form and return it. A self addressed pre-paid envelope is provided. THANK YOU FOR CHOOSING [facility]. FITTER AMMONIA documented in this encounter Medications at Time of Discharge dicyclomine (BENTYL) 20 MG Tablet Take 1 Tab by mouth every 6 hours. 30 Tab 09/05/2019 losartan (COZAAR) 25 MG Tablet nightly. 08/17/2019 documented as of this encounter H&P Notes * Yolie Allen, OFFICE AUTOMATION TECHNICIAN, CHARGE AIDE - 10/16/2019 11:48 AM CST [facility] GASTROENTEROLOGY CONSULT/H&P NAME: Tam Mari DATE 1980 DATE OF CONSULT: 10/16/2019 Very pleasant patient was seen at the request of Dr. Escamilla and with the patient's permission. The patient was examined and the chart was reviewed. IMPRESSION: 1. Here we have a very pleasant 39-year-old gentleman who reports to the office for new onset umbilical and lower abdominal pain since June. Certainly will rule out any underlying pathological process and inflammatory bowel disease. 2. History of elevated ALT of 72 with other normal liver enzymes. Certainly could be related to underlying fatty liver disease. Does not drink. 3. Hypertension. RECOMMENDATIONS: 1. Colonoscopy today Risks, benefits, and alternative to procedure have been explained to patient. He wishes to proceed with procedure. HISTORY: Here we have a very pleasant 39-year-old gentleman who is referred over by Dr. Escamilla for abdominal pains. The patient reports in June, he began just having low back pain, and then it progressed to abdominal pain. He describes his abdominal pain around his belly button. He said that he describes it as a poking sensation. This pain does come and go. It is not constant. He says he will have days where he does not have it, and then some days where he does, and sometimes the pain will radiate into his right lower quadrant and left lower quadrant. He initially had a short bout of diarrhea back in June, but this has resolved. He denies any black or bloody stools. His bowels move pretty regular. He denies any correlation of this pain with bowel patterns.He does say that eating and having a full stomach seems to make his symptoms better. He did have a celiac antibody panel, IBD antibodies, UA, and occult stool that were all negative. He has no signs of anemia. He did have mildly elevated LFTs noted with an ALT of 72, AST was 34, alkaline phosphatase 52, bilirubin was normal. He denies any right upper quadrant abdominal pain orradiation to the back. He denies any indigestion or heartburn. Denies any trouble swallowing or pain with swallowing. History of colon cancer in a maternal grandmother, but no family history of inflammatory bowel disease. ?? Ct abd pelvis showed fatty liver and possible biliary sludge vs small gallstone. Follow up US showed no abnormalities in the gallbladder. ALLERGIES: No Known Allergies MEDICATIONS Medications Prior to Admission Medication Sig Dispense Refill ??? dicyclomine (BENTYL) 20 MG Tablet Take 1 Tab by mouth every 6 hours. (Patient not taking: Reported on 09/28/2019) 30 Tab 0 ??? losartan (COZAAR) 25 MG Tablet nightly. MEDICAL HISTORY: Past Medical History Positives Diagnosis Date ??? High blood pressure SURGICAL HISTORY: No past surgical history on file. FAMILY HISTORY: Family History Problem Relation Age of Onset ??? Diabetes Mother ??? Hypertension Mother ??? Hypertension Father ??? Colon Cancer Maternal Grandmother SOCIAL HISTORY: Social History Socioeconomic History ??? Marital status: Spouse name: Not on file ??? Number [...] Substance and Sexual Activity ??? Alcohol use: Not Currently ??? Drug use: Never ??? Sexual activity: Not on file Lifestyle ??? Physical activity: Days per week: Not on file Minutes per session: Not on file ??? Stress: Not on file Relationships ??? Social connections: Talks on phone: Not on file Gets together: Not on file Attends yazdanism service: Not on file Active member of [...] Social History Narrative ??? Not on file OBSTETRICS HISTORY: REVIEW OF SYSTEMS: A 14 point review of systems was performed and was negative other than what is mentioned under the HPI. EXAMINATION BP (!) 143/101 Pulse (!) 118 Comment: pt very nervous Temp 96.8 ??F (36 ??C) (Other (See Comment)) Resp 20 Ht 5' 6 (1.676 m) Wt 225 lb (102.1 kg) BMI 36.32 kg/m?? General appearance: alert, no distress, cooperative, appears stated age Head: Normocephalic, without obvious abnormality, atraumatic Eyes: no icterus Throat: Lips, mucosa, and tongue normal. Teeth and gums normal. Moist mucous membranes. No oral lesions. Neck: supple, symmetrical, trachea midline, no adenopathy, thyroid: not enlarged, symmetric, no tenderness/mass/nodules, no carotid bruit and no Jugular Venous Distention Lungs: no acute distress, clear to auscultation bilaterally anterior and posterior, good effort. Heart: regular rate and rhythm, S1, S2 normal, no murmur, click, rub or gallop Abdomen: soft, non-tender. Bowel sounds normal. No masses, no organomegaly. Extremities: extremities normal, atraumatic, no cyanosis or edema, negative homans/sami Pulses: pedal pulses intact Skin: Skin color, texture, turgor normal. No rashes or lesions Lymph nodes: Cervical nodes normal., Supraclavicular nodes normal. Neurologic: Alert and oriented X 3. CN 2-12 grossly intact. No focal deficits. Mental status exam was completely normal. Dress, hygeine, and appearance are appropriate. Overall affect is normal. Rectal exam: Deferred. Thank you for much for the opportunity to participate in the care of this patient. Please do not hesitate to contact us if we can be of any further assistance. Documentation for this visit on 10/16/2019 was completed using a template. I have seen and examined the patient. Everything documented was personally performed at this visit with the necessary additions, deletions and changes made as appropriate. Cosigned by Meri Stephens MD at 10/16/2019 12:01 PM PIPE FITTER AMMONIA FITTER AMMONIA FITTER AMMONIA Associated attestation - Meri Stephens MD - 10/16/2019 12:01 PM PIPE FITTER AMMONIA I have seen and examined the pt and agree with the above note by MARISA Mrs. Urbano Tiffany We will proceed with colonoscopy today. documented in this encounter OR Notes * OR Surgeon - Meri Stephens MD - 10/16/2019 12:01 PM CST COLONOSCOPY PROCEDURE NOTE Date of Procedure: 10/16/19 History and Preoperative Diagnosis: Here we have a very pleasant 39-year-old gentleman who is referred over by Dr. Escamilla for abdominal pains. ??The patient reports in June, he began just having low back pain, and then it progressed to abdominal pain. ??He describes his abdominal pain around his belly button. ??He said that he describes it as a poking sensation. ??This pain does come and go. ??It is not constant. ??He says he will have days where he does not have it, and then some days where he does, and sometimes the pain will radiate into his right lower quadrant and left lower quadrant. ??He initially had a short bout of diarrhea back in June, but this has resolved. ??He denies any black or bloody stools. ??His bowels move pretty regular. ??He denies any correlation of this pain with bowel patterns. ??He does say that eating and having a full stomach seems to make his symptoms better. ??He didhave a celiac antibody panel, IBD antibodies, UA, and occult stool that were all negative. ??He hasno signs of anemia. ??He did have mildly elevated LFTs noted with an ALT of 72, AST was 34, ??alkaline phosphatase 52, bilirubin was normal. ??He denies any right upper quadrant abdominal pain or radiation to the back. ??He denies any indigestion or heartburn. ??Denies any trouble swallowing or pain with swallowing. ??History of colon cancer dov maternal grandmother, but no family history of inflammatory bowel disease. ? Ct abd pelvis showed fatty liver and possible biliary sludge vs small gallstone. Follow up US showed no abnormalities in the gallbladder. Pt elected not to have anesthesia during the procedure. Pre-Procedure: After discussion of the risks, benefits, and alternatives to the procedure, informedconsent was obtained from patient/power of research attorney/caregiver. Risks discussed included, but were not limited to infection, perforation, hemorrhage, arrhythmia, hypersensitivity to sedatives, missed c ancer, surgery, blood transfusion and . Based on the pre-procedure assessment, including review of the patient's medical history, medications, allergies, and review of systems, he had been deemed to be an appropriate candidate for moderate sedation. The patient understood procedure and all ques tions were answered. Postoperative Diagnosis: 1. Normal ileocolonoscopy 2.Two small internal hemorrhoids Findings: This procedure was done in procedure room 1. Needed external abdominal pressure to help navigate the scope to the cecum from the ascending colon. TI was intubated and looked normal. Cecum was visualized by appendiceal orifice, Stillaguamish's foot and ICvalve. Colon mucosa looked normal throughout. No polyps seen. Right and left colon biopsies obtained. Two small internal hemorrhoids seen. Anesthesia: No anesthesia Complications: Patient had mild nausea during the procedure that quickly resolved with suctioning of gas and patient coughing and expelling it. EBL: <5ml Procedure performed: Colonoscopy with use of cold biopsy forceps Quality Indicators: Prep: BPPS: 3+3+3=9 Procedure time: 19 minutes Time to cecum from insertion: 5 minutes Withdrawal time: 14 minutes Recommendations: -Repeat colonoscopy in 10 years -OTC fiber and stool softeners if constipated or having to strain at the time of bowel movement. Can try preparation H OTC suppository ( containing phenylephrine) at bed time if you notice significant rectal bleeding in the future from hemorrhoids and leave it for atleast 12 hours in the night. This will help shrink the hemorrhoids temporarily and stop the bleeding. -Our office will call you with the biopsy results in about a week time. Procedure Details: A physician-directed time out was held to confirm patient and procedure. The patient understood procedure and all questions were answered. Patient was placed in the left lateral decubitus position. Sedated by the department of Anesthesiology. Digital rectal examination was performed and was unremarkable. Using the Olympus video colonoscope, it was inserted under direct visualization into the rectum and advanced to the cecum (or as otherwise specified). The cecum was identified by the appendiceal opening and ileocecal valve. Instrument used: Olympus video colonoscope REFERRING PHYSICIAN: No referring provider defined for this encounter. Surgeon: Surgeon(s) and Role: * Meri Stephens MD - Primary MERI STEPHENS MD, 10/16/2019, 12:01 PM Primary Care Physician: MATTHEW ESCAMILLA MD FITTER AMMONIA FITTER AMMONIA documented in this encounter Miscellaneous Notes * Interdisciplinary - Edwige Quintana RN - 10/16/2019 12:37 PM PIPE FITTER AMMONIA Abdominal pressure applied by Loren SHAH FITTER AMMONIA documented in this encounter Plan of Treatment Scheduled Orders Name Type Priority Associated Diagnoses Orde r Schedule Pulse Oximetry, Spot PFT Routine WITH VITALS until discontinued starting 10/16/2019 documented as of this encounter Procedures Procedure Name Priority Date/Time Associated Diagnosis Comments PATHOLOGY SURGICAL Routine 10/16/2019 12 :40 PM PIPE FITTER AMMONIA COLONOSCOPY 10/16/2019 12:28 PM PIPE FITTER AMMONIA COLONOSCOPY-RIGHT COLON BIOPSIES, LEFT COLON BIOPSIES, HEMORRHOIDS, NORMAL COLON, NORMAL TERMINAL ILEUM Special Needs BF 10/16 documented in this encounter Results * Pathology Surgical (10/16/2019 12:40 PM PIPE FITTER AMMONIA) Case Report Surgical Pathology Report ? Case: [id number] ? Authorizing Provider: ??Meri Stephens MD Collected: ? 10/16/2019 12:40 PM ? Ordering Location: ? [facility] ? Received: ?10/16/2019 01:44 PM ? [facility] ? Lab Main ? Pathologist: ? Tania Dougherty, ? MD ? Specimens: ?? A) - COLON, RIGHT COLON BIOPSIES ? B) - COLON, LEFT COLON BIOPSIES ? 10/17/2019 3:56 PM PIPE FITTER AMMONIA [facility] Final Diagnosis A. ??Colon, right, biopsy: ?- ??No pathologic diagnosis. B. ??Colon, left, biopsy: ?- ??No pathologic diagnosis. 10/17/2019 3:56 PM PIPE FITTER AMMONIA [facility] Pre-Operative Diagnosis PERIUMBILICAL PAIN 10/17/2019 3:56 PM PIPE FITTER AMMONIA [facility] Gross Description The specimens present in two formalin containers labeled with the patient's name, Tam Mari. PART A: ??The specimen is designated as right colon biopsies . In formalin are two pieces of pink-mendoza to yellow-mendoza tissue measuring up to 4 mm in greatest dimension for each. They will be submitted in their entirety in cassette A1 . PART B: ??The specimen is designated as left colon biopsies . In formalin are two pieces of pink-mendoza to yellow-mendoza tissue measuring from 4 to 5 mm in greatest dimension. They will be submitted in their entirety in cassette B1 . ??CP/dv 10/17/2019 3:56 PM PIPE FITTER AMMONIA [facility] Microscopic Description 6 H&E. Microscopic examination supports the diagnoses. No increased intraepithelial lymphocytes, thickening of the epithelial basement membrane, significant acute inflammation, granuloma formation, or epithelial atypia is identified. (SES/sb) 10/17/2019 3:56 PM PIPE FITTER AMMONIA [facility] Tissue specimen (specimen) COLON STRUCTURE / Unknown 10/16/2019 12:40 PM PIPE FITTER AMMONIA 10/16/2019 1:44 PM PIPE FITTER AMMONIA Tissue specimen (specimen) COLON STRUCTURE / Unknown 10/16/2019 12:47 PM PIPE FITTER AMMONIA 10/16/2019 1:44 PM PIPE FITTER AMMONIA Meri Stephens MD PATHOLOGY/CYTOLOGY SHERYL CASTRO Final Result [facility] [address] [place] [address] documented in this encounter Visit Diagnoses Not on filedocumented in this encounter Administered Medications Inactive Administered Medications - up to 3 most recent administrations Medication Order MAR Action Action Date Dose Rate Site lactated ringers infusion at 20 mL/hr, Intravenous, CONTINUOUS, Starting on Wed10/16/19 at 1200, Until Wed10/16/19 at 1510 New Bag 10/16/2019 12:05 PM PIPE FITTER AMMONIA 20 mL/hr 20 mL/hr ondansetron (ZOFRAN) injection 4 mg 4 mg, Intravenous, ONCE PRN, 1 dose, Starting on Wed10/16/19 at 1132, Until Wed10/16/19 at 1510, Nausea - 1st line, To be available to administer with physician present. For intra-procedure only. documented in this encounter Active and Recently Administered Medications Times are shown in PIPE FITTER AMMONIA. Continuous Medication Order 10/14/2019 10/15/2019 10/16/2019 lactated ringers infusion at 20 mL/hr, Intravenous, CONTINUOUS, Starting on Wed10/16/19 at 1200, Until Wed10/16/19 at 1510 1205 (New Bag - Prov ider: Patty Huynh RN)1300 (Stopped - Provider: Janel D Mckinley, RN) PRN Medication Order 10/14/2019 10/15/2019 10/16/2019 ondansetron (ZOFRAN) injection 4 mg 4 mg, Intravenous, ONCE PRN, 1 dose, Starting on 10/16/19 at 1132, Until Wed10/16/19 at 1510, Nausea - 1st line, To be available to administer with physician present. For intra-procedure only. documented in this encounter Care Teams Grinder And Honer Operator Automatic Relationship Specialty Start Date End Date Matthew Escamilla MD [address] [place] [address] PCP - General Pediatrics 08/24/19 documented as of this encounter
--- OUTSIDE RECORDS SUMMARY | 2024-08-19 05:56 | XMS_ITS | Encounter Summary ---
Author Organization [facility] Address [address] [place] [address] Phone Care Team Providers Care Shipfitter Apprentice Name Role Phone Matthew Nesbitt MD Primary Care Provider [phone] Reason for Referral * Radiology Services (Routine) - Closed Specialty Diagnoses / Procedures Referred By Sammyac t Referred To Contact Radiology Diagnoses Periumbilical pain Procedures CT ABDOMEN PELVIS W/ CONTRAST Yolie Allen APRN, BRAND COORDINATOR Phone: tel: fax: Referral ID Status Reason Start Date Expiration Date Visits Re quested Visits Authorized [id number] Closed 09/05/2019 1 2 TRAINER Reason for Visit * Radiology Services (Routine) - Closed Specialty Diagnoses / Procedures Referred By Fatmata gutierrez Referred To Contact Radiology Diagnoses Periumbilical pain Procedures CT ABDOMEN PELVIS W/ CONTRAST Yolie Allen APRN, BRAND COORDINATOR Phone: tel: fax: Referral ID Status Reason Start Date Expiration Date Visits Re quested Visits Authorized [id number] Closed 09/05/2019 1 2 Encounter Details Date Type Department Care Team (Latest Contact Info) Description 09/15/2019 12:00 PM LIFE TRAINER - 09/15/2019 11:59 PM LIFE TRAINER Hospital Encounter [facility] [address] [place] [id number] Yolie Allen, DIRECTOR OF DIETARY, BRAND COORDINATOR [address] [address] Discharge Disposition: Discharged to home or Selfcare Social History Tobacco Use Types Packs/Day Years Used Date Smoking Tobacco: Never Smokeless Tobacco: Never Alcohol Use Standard Drinks/Week Comments Not Currently 0 (1 standard drink = 0.6 oz pur e alcohol) Sex and Gender Information Value Date Recorded Sex Assigned at Not on file Legal Sex Male 7:55 AM LIFE TRAINER Gender Identity Not on file Sexual Orientation Not on file documented as of this encounter Medications at Time of Discharge dicyclomine (BENTYL) 20 MG Tablet Take 1 Tab by mouth every 6 hours. 30 Tab 09/05/2019 losartan (COZAAR) 25 MG Tablet nightly. 08/17/2019 documented as of this encounter Plan of Treatment Not on file documented as of this encounter Procedures Procedure Name Priority Date/Time Associated Diagnosis Comments CT ABDOMEN PELVIS W/ CONTRAST Routine 09/15/2019 1:12 PM LIFE TRAINER Periumbilical pain POCT CREATININE Routine 09/15/2019 1:03 PM LIFE TRAINER documented in this encounter Results * CT ABDOMEN PELVIS W/ CONTRAST (09/15/2019 1:12 PM LIFE TRAINER) Anatomical Region Laterality Modality Abdomen N/A Computed Tomogra phy 09/16/2019 8:17 AM LIFE TRAINER Impressions 09/16/2019 8:20 AM LIFE TRAINER IMPRESSION: ?? 1. ??No evidence of an acute abnormality of the abdomen and pelvis. 2. ??Hepatic steatosis. 3. ??Possible small gallstone or biliary sludge, or small gallbladder polyp. ??This could be correlated with ultrasound if needed for further assessment. Narrative 09/16/2019 8:20 AM LIFE TRAINER EXAM DESCRIPTION: ??CT ABDOMEN PELVIS W/ CONTRAST REASON FOR STUDY: ??Acute periumbilical abdominal pain which comes and goes for 2 months. TECHNIQUE: ??CT scan of the abdomen and pelvis performed with intravenous and with oral contrast using helical scanning technique with dynamic intravenous contrast injection. Reconstructed coronal and sagittal MPR images reviewed. All images stored on PACS. Automated exposure control was used as a dose optimization technique for this examination. CONTRAST TYPE/DOSE: ??117 mL Isovue 370 intravenous contrast via the right antecubital vein. COMPARISON: ??Without FINDINGS: ??LOWER CHEST: Lung bases are clear. ??No pleural effusion. LIVER: Diffuse hepatic steatosis is noted. ??There is no focal lesion. ??Liver size is normal. GALLBLADDER: Small focus of high density in the gallbladder (image 58) which may be a small gallstone, tumefactive sludge, or small polyp. ??No overt inflammatory change. BILE DUCTS: No biliary ductal dilation. SPLEEN: Spleen size is normal. ??No focal splenic lesions. PANCREAS: No pancreatic mass or inflammatory change. ADRENALS: Normal. KIDNEYS/URINARY TRACT: No renal calculi. ??There are low-attenuation left renal lesions, these are subcentimeter fluid attenuation likely cysts. ??No hydronephrosis or renal mass. ??No ureteral calculi are seen. GI: No evidence of bowel obstruction. ??No pneumatosis. ??The terminal ileum and appendix are normal. ??No evidence of bowel wall thickening. PERITONEUM: No ascites or free air. ??No mesenteric mass or lymphadenopathy. RETROPERITONEUM: No retroperitoneal mass or lymphadenopathy. REPRODUCTIVE: No significant abnormalities. VASCULATURE: Abdominal aorta is nonaneurysmal. MUSCULOSKELETAL: Bone windows demonstrate no acute or aggressive osseous abnormality. OTHER: No other abnormality. THIS IS AN ELECTRONICALLY VERIFIED FINAL REPORT 09/16/2019 8:17 AM - Electronically signed by Andrea Benitez M.D. CH: KARMEN D: ??09/16/2019 8:17 AM T: ??09/16/2019 8:17 AM Report ID: [id number] Reading Location: ??[id number] Procedure Note Andrea Benitez Jr., MD - 09/16/2019 EXAM DESCRIPTION: CT ABDOMEN PELVIS W/ CONTRAST REASON FOR STUDY: Acute periumbilical abdominal pain which comes and goes for 2 months. TECHNIQUE: CT scan of the abdomen and pelvis performed with intravenous and with oral contrast using helical scanning technique with dynamic intravenous contrast injection. Reconstructed coronal and sagittal MPR images reviewed. All images stored on PACS. Automated exposure control was used as a dose optimization technique for this examination. CONTRAST TYPE/DOSE: 117 mL Isovue 370 intravenous contrast via the right antecubital vein. COMPARISON: Without FINDINGS: LOWER CHEST: Lung bases are clear. No pleural effusion. LIVER: Diffuse hepatic steatosis is noted. There is no focal lesion. Liver size is normal. GALLBLADDER: Small focus of high density in the gallbladder (image 58) which may be a small gallstone, tumefactive sludge, or small polyp. No overt inflammatory change. BILE DUCTS: No biliary ductal dilation. SPLEEN: Spleen size is normal. No focal splenic lesions. PANCREAS: No pancreatic mass or inflammatory change. ADRENALS: Normal. KIDNEYS/URINARY TRACT: No renal calculi. There are low-attenuation left renal lesions, these are subcentimeter fluid attenuation likely cysts. No hydronephrosis or renal mass. No ureteral calculi are seen. GI: No evidence of bowel obstruction. No pneumatosis. The terminal ileum and appendix are normal. No evidence of bowel wall thickening. PERITONEUM: No ascites or free air. No mesenteric mass or lymphadenopathy. RETROPERITONEUM: No retroperitoneal mass or lymphadenopathy. REPRODUCTIVE: No significant abnormalities. VASCULATURE: Abdominal aorta is nonaneurysmal. MUSCULOSKELETAL: Bone windows demonstrate no acute or aggressive osseous abnormality. OTHER: No other abnormality. THIS IS AN ELECTRONICALLY VERIFIED FINAL REPORT 09/16/2019 8:17 AM - Electronically signed by Andrea Benitez M.D. CH: KARMEN Report ID: [id number] Reading Location: [place] [address] IMPRESSION: 1. No evidence of an acute abnormality of the abdomen and pelvis. 2. Hepatic steatosis. 3. Possible small gallstone or biliary sludge, or small gallbladder polyp. This could be correlated with ultrasound if needed for further assessment. us Yolie Allen DIRECTOR OF DIETARY, BRAND COORDINATOR IMG CT ORDERABLES Final Result * POCT Creatinine (09/15/2019 1:03 PM LIFE TRAINER) CREATININE - POCT 0.9 0.6 - 1.3 mg/dL 09/15/2019 1:05 PM LIFE TRAINER [facility] Blood specimen (specimen) 09/15/2019 1:03 PM LIFE TRAINER 09/15/2019 1:05 PM LIFE TRAINER us Yolie Allen DIRECTOR OF DIETARY, BRAND COORDINATOR POINT OF CARE BROOKE SAM Final Result [facility] [address] [facility] [place] [address] documented in this encounter Visit Diagnoses Diagnosis Periumbilical pain Abdominal pain, periumbilic documented in this encounter Administered Medications Inactive Administered Medications - up to 3 most recent administrations Medication Order MAR Action Action Date Dose Rate Site diatrizoate meglumine-sodium (GASTROGRAFIN) 66-10 % solution 15 mL 15 mL, Oral, ONCE, 1 dose, On Wed09/15/19 at 1300 Given 09/15/2019 12:09 PM LIFE TRAINER 15 mL iopamidol (ISOVUE-370) 76 % injection 117 mL 117 mL, Intravenous, ONCE, 1 dose, On Wed09/15/19 at 1300 Given 09/15/2019 1:09 PM LIFE TRAINER 117 mL documented in this encounter Care Teams Shipfitter Apprentice Relationship Specialty Start Date End Date Matthew Nesbitt MD [address] [place], [place] [id number] PCP - General Pediatrics 08/24/19 documented as of this encounter
--- OUTSIDE RECORDS SUMMARY | 2024-08-19 05:56 | XMS_ITS | Encounter Summary ---
Author Organization [facility] Address [address] [place] [address] Phone Care Team Providers Care Bricklayer Tender Name Role Phone Matthew Nesbitt MD Primary Care Provider [phone] Reason for Referral * Radiology Services (Routine) - Closed Specialty Diagnoses / Procedures Referred By Contac t Referred To Contact Radiology Diagnoses Abnormal CT scan, gallbladder Procedures US ABDOMEN COMPLETE Yolie Allen APRN, HR RECEPTIONIST Phone: tel: fax: Referral ID Status Reason Start Date Expiration Date Visits Re quested Visits Authorized [id number] Closed 09/18/2019 1 2 R CLEANER Encounter Details Date Type Department Care Team (Late st Contact Info) Description 09/18/2019 Telephone [facility] - Gastroenterology [facility] [address] [place] [address] Yolie Allen APRN, HR RECEPTIONIST [address] [address] Social History Tobacco Use Types Packs/Day Years Used Date Smoking Tobacco: Never Smokeless Tobacco: Never Alcohol Use Standard Drinks/Week Comments Not Currently 0 (1 standard drink = 0.6 oz pur e alcohol) Sex and Gender Information Value Date Recorded Sex Assigned at Not on file Legal Sex Male 7:55 AM FLOOR CLEANER Gender Identity Not on file Sexual Orientation Not on file documented as of this encounter Miscellaneous Notes * Telephone Encounter - Yolie Allen APN, CNP - 09/18/2019 9:07 AM FLOOR CLEANER abd us order placed R CLEANER documented in this encounter Plan of Treatment Not on file documented as of this encounter Results * US ABDOMEN COMPLETE (09/25/2019 8:58 AM FLOOR CLEANER) Anatomical Region Laterality Modality Abdomen N/A Ultrasound 09/25/2019 10:1 1 AM FLOOR CLEANER Impressions 09/25/2019 10:14 AM FLOOR CLEANER IMPRESSION: ?? 1. ??No evidence of an acute abnormality. 2. ??No sonographic evidence of cholelithiasis or other gallbladder pathology. 3. ??Hepatic steatosis. Narrative 09/25/2019 10:14 AM FLOOR CLEANER EXAM DESCRIPTION: ??US ABDOMEN COMPLETE REASON FOR STUDY: ??Abnormal findings on diagnostic imaging of liver and biliary tract follow-up from CT from 09/15/2019. TECHNIQUE: ??Grayscale images acquired of the abdomen and recorded on PACS. Additional selected color Doppler and spectral images recorded. COMPARISON: ??Correlation with a CT abdomen and pelvis 09/15/2019. FINDINGS: ??PANCREAS: Visualized portions of the pancreas are within normal limits. Portions of the pancreatic body and tail are obscured due to bowel gas. LIVER: Increased in echogenicity evidence of hepatic steatosis. ?? Liver is 15.3 cm in length. ??No focal hepatic lesions are shown. GALLBLADDER: No demonstrated shadowing calculi or evidence of biliary sludge. ??The high density focus at the neck of the gallbladder not shown to have a sonographic correlate. ??No gallbladder wall thickening or pericholecystic fluid. ??Negative sonographic Christensen's sign is reported. BILIARY: There is no intrahepatic or extrahepatic biliary ductal dilatation. Common bile duct measures 0.3 cm. INFERIOR VENA CAVA: Partially obscured due to shadowing bowel gas. AORTA: Largely obscured due to shadowing bowel gas. ??This was noted to be normal caliber on the recent ultrasound. RIGHT KIDNEY: Normal size. Normal echogenicity. No solid mass or cyst. ??No hydronephrosis. Measures 12.1 cm in length. LEFT KIDNEY: Normal size. Normal echogenicity. No solid mass or cyst. No hydronephrosis. Measures 11.9 cm in length. SPLEEN: Top normal size at 12.3 cm with no focal abnormality. PERITONEAL AND PLEURAL SPACES: No ascites or effusions. OTHER: No other significant finding. THIS IS AN ELECTRONICALLY VERIFIED FINAL REPORT 09/25/2019 10:11 AM - Electronically signed by Andrea Benitez M.D. CH: KARMEN D: ??09/25/2019 10:11 AM T: ??09/25/2019 10:11 AM Report ID: [id number] Reading Location: ??[id number] Procedure Note Andrea Benitez Jr., MD - 09/25/2019 EXAM DESCRIPTION: US ABDOMEN COMPLETE REASON FOR STUDY: Abnormal findings on diagnostic imaging of liver and biliary tract follow-up from CT from 09/15/2019. TECHNIQUE: Grayscale images acquired of the abdomen and recorded on PACS. Additional selected color Doppler and spectral images recorded. COMPARISON: Correlation with a CT abdomen and pelvis 09/15/2019. FINDINGS: PANCREAS: Visualized portions of the pancreas are within normal limits. Portions of the pancreatic body and tail are obscured due to bowel gas. LIVER: Increased in echogenicity evidence of hepatic steatosis. Liver is 15.3 cm in length. No focal hepatic lesions are shown. GALLBLADDER: No demonstrated shadowing calculi or evidence of biliary sludge. The high density focus at the neck of the gallbladder not shown to have a sonographic correlate. No gallbladder wall thickening or pericholecystic fluid. Negative sonographic Christensen's sign is reported. BILIARY: There is no intrahepatic or extrahepatic biliary ductal dilatation. Common bile duct measures 0.3 cm. INFERIOR VENA CAVA: Partially obscured due to shadowing bowel gas. AORTA: Largely obscured due to shadowing bowel gas. This was noted to be normal caliber on the recent ultrasound. RIGHT KIDNEY: Normal size. Normal echogenicity. No solid mass or cyst. No hydronephrosis. Measures 12.1 cm in length. LEFT KIDNEY: Normal size. Normal echogenicity. No solid mass or cyst. No hydronephrosis. Measures 11.9 cm in length. SPLEEN: Top normal size at 12.3 cm with no focal abnormality. PERITONEAL AND PLEURAL SPACES: No ascites or effusions. OTHER: No other significant finding. THIS IS AN ELECTRONICALLY VERIFIED FINAL REPORT 09/25/2019 10:11 AM - Electronically signed by Andrea Benitez M.D. CH: KARMEN Report ID: [id number] Reading Location: [place] [address] IMPRESSION: 1. No evidence of an acute abnormality. 2. No sonographic evidence of cholelithiasis or other gallbladder pathology. 3. Hepatic steatosis. us Yolie Nawaf Allen DRAG OUT WORKER, HR RECEPTIONIST IMG US ORDERABLES Final Result documented in this encounter Visit Diagnoses Diagnosis Abnormal CT scan, gallbladder- Primary Nonspecific (abnormal) findings on radiological and other examination of biliary tract Abnormal CT scan, gallbladder Nonspecific (abnormal) findings on radiological and other examination of biliary tract documented in this encounter Care Teams Bricklayer Tender Relationship Specialty Start Date End Date Matthew Nesbitt MD [address] [place] [address] PCP - General Pediatrics 08/24/19 documented as of this encounter
--- OUTSIDE RECORDS SUMMARY | 2024-08-19 05:56 | XMS_ITS | Encounter Summary ---
Author Organization [facility] Address [address] [place] [address] Phone Care Team Providers Care Llama Farmer Name Role Phone Matthew Nesbitt MD Primary Care Provider [phone] Encounter Details Date Type Department Care Team (Late st Contact Info) Description 11/01/2019 Telephone [facility] - Gastroenterology [facility] [address] [place] [address] Yolie Allen, SNOW RANGER, QUARANTINE INSPECTOR [address] [address] Social History Tobacco Use Types Packs/Day Years Used Date Smoking Tobacco: Never Smokeless Tobacco: Never Alcohol Use Standard Drinks/Week Comments Not Currently 0 (1 standard drink = 0.6 oz pur e alcohol) Sex and Gender Information Value Date Recorded Sex Assigned at Not on file Legal Sex Male 7:55 AM HEEL FINISHER Gender Identity Not on file Sexual Orientation Not on file documented as of this encounter Miscellaneous Notes * Telephone Encounter - Dona West RMA - 11/01/2019 8:18 AM CST Pt called stating he has a OV with vlad on 10/19/2019, but would like to ask you for some advise. Pt states he's lost 10 lbs since his colonoscopy and is scared something may have been missed in his CTor something like Cancer . Pt sates no nausea, vomiting , or diarrhea, and not change in diet. please advise FINISHER documented in this encounter Plan of Treatment Not on file documented as of this encounter Visit Diagnoses Not on filedocumented in this encounter Care Teams Llama Farmer Relationship Specialty Start Date End Date Matthew Nesbitt MD [address] [place] [id number] PCP - General Pediatrics 08/24/19 documented as of this encounter
--- OUTSIDE RECORDS SUMMARY | 2024-08-19 05:56 | XMS_ITS | Encounter Summary ---
Author Organization [email or web address] Care Team Providers Care Bulk Folder Name Role Phone Matthew Nesbitt MD Primary Care Provider [phone] Encounter Details Date Type Department Care Team (Latest Contact Info) Description 09/15/2019 Travel Social History Tobacco Use Types Packs/Day Years Used Date Smoking Tobacco: Never Smokeless Tobacco: Never Alcohol Use Standard Drinks/Week Comments Not Currently 0 (1 standard drink = 0.6 oz pur e alcohol) Sex and Gender Information Value Date Recorded Sex Assigned at Not on file Legal Sex Male 7:55 AM CORK INSULATION SETTER Gender Identity Not on file Sexual Orientation Not on file documented as of this encounter Plan of Treatment Not on file documented as of this encounter Visit Diagnoses Not on filedocumented in this encounter Care Teams Bulk Folder Relationship Specialty Start Date End Date Matthew Nesbitt MD [address] [place] [address] PCP - General Pediatrics 08/24/19 documented as of this encounter
--- OUTSIDE RECORDS SUMMARY | 2024-08-19 05:56 | XMS_ITS | Encounter Summary ---
Author Organization [facility] Address [address] [place] [address] Phone Care Team Providers Care Turn Supervisor Name Role Phone Matthew Escamilla MD Primary Care Provider [phone] Reason for Visit * Auth/Cert Specialty Diagnoses / Procedures Referred By Contac t Referred To Contact Diagnoses PERIUMBILICAL PAIN Procedures COLONOSCOPY Referral ID Status Reason Start Date Expiration Date Visits Re quested Visits Authorized [id number] 1 1 Encounter Details Date Type Department Care Team (Latest Contact Info) Description 10/16/2019 11:24 AM ABSORPTION PLANT OPERATOR HELPER - 10/16/2019 1:10 PM ABSORPTION PLANT OPERATOR HELPER Hospital Encounter [facility] GI Lab Preop/Pacu II [address] [place] [address] Meri Stephens MD [address] [place] [address] Discharge Disposition: Discharged to home or Selfcare Social History Tobacco Use Types Packs/Day Years Used Date Smoking Tobacco: Never Smokeless Tobacco: Never Alcohol Use Standard Drinks/Week Comments Not Currently 0 (1 standard drink = 0.6 oz pur e alcohol) Sex and Gender Information Value Date Recorded Sex Assigned at Not on file Legal Sex Male 7:55 AM ABSORPTION PLANT OPERATOR HELPER Gender Identity Not on file Sexual Orientation Not on file documented as of this encounter Last Filed Vital Signs Vital Sign Reading Time Taken Comments Blood Pressure 126/95 10/16/2019 12:59 PM ABSORPTION PLANT OPERATOR HELPER Pulse 106 10/16/2019 12:59 PM ABSORPTION PLANT OPERATOR HELPER Temperature 36 ??C (96.8 ??F) 10/16/2019 12:59 PM ABSORPTION PLANT OPERATOR HELPER Respiratory Rate 14 10/16/2019 12:59 PM ABSORPTION PLANT OPERATOR HELPER Oxygen Saturation 100% 10/16/2019 12:59 PM ABSORPTION PLANT OPERATOR HELPER Inhaled Oxygen Concentration - - Weight 102.1 kg (225 lb) 09/28/2019 3:00 PM ABSORPTION PLANT OPERATOR HELPER Height 167.6 cm (5' 6 ) 09/28/2019 3:00 PM ABSORPTION PLANT OPERATOR HELPER Body Mass Index 36.32 09/28/2019 3:00 PM ABSORPTION PLANT OPERATOR HELPER documented in this encounter Discharge Instructions * Discharge Instructions* Janel Mckinley, RN - 10/16/2019 1:03 PM ABSORPTION PLANT OPERATOR HELPER YOU HAD A COLONOSCOPY TODAY. DR. MERI STEPHENS FOUND: BIOPSY/BIOPSIES TAKEN. CALL OFFICE FOR BIOPSY RESULTS IN 2 WEEKS AT [phone] HEMORRHOIDS Recommendations: -Repeat colonoscopy in 10 years [...] WORK, UNLESS INSTRUCTED OTHERWISE. Call doctor's office ([phone]) or go to Emergency room for: Difficulty Breathing, Headache Or Visual Disturbances Persistent Dizziness Or Light-Headedness Persistent Nausea and Vomiting Temperature greater then 100.0 Significant abdominal pain, chest pain, or bleeding. Here at [facility] we strive to provide excellent care to [...] envelope is provided. THANK YOU FOR CHOOSING [facility]. RPTION PLANT OPERATOR HELPER documented in this encounter Medications at Time of Discharge dicyclomine (BENTYL) 20 MG Tablet Take 1 Tab by mouth every 6 hours. 30 Tab 09/05/2019 losartan (COZAAR) 25 MG Tablet nightly. 08/17/2019 documented as of this encounter H&P Notes * Yolie Allen APN, PHYSICAL TRAINER - 10/16/2019 11:48 AM CST [facility] GASTROENTEROLOGY CONSULT/H&P NAME: Tam Mari DATE 1980 [...] file Gets together: Not on file Attends adventism service: Not on file Active member of [...] Meri Stephens MD at 10/16/2019 12:01 PM ABSORPTION PLANT OPERATOR HELPER RPTION PLANT OPERATOR HELPER RPTION PLANT OPERATOR HELPER Associated attestation - Meri Stephens MD - 10/16/2019 12:01 PM ABSORPTION PLANT OPERATOR HELPER I have seen and examined the pt and agree with the above note by MARISA Yolie Tiffany We will proceed with colonoscopy today. [...] procedure, informedconsent was obtained from patient/power of tax attorney/caregiver. Risks discussed included, but were not [...] normal. Cecum was visualized by appendiceal orifice, [place]'s foot and ICvalve. Colon mucosa looked normal [...] PM Primary Care Physician: MATTHEW ESCAMILLA MD RPTION PLANT OPERATOR HELPER RPTION PLANT OPERATOR HELPER documented in this encounter Miscellaneous Notes * Interdisciplinary - Edwige Quintana RN - 10/16/2019 12:37 PM ABSORPTION PLANT OPERATOR HELPER Abdominal pressure applied by Loren SHAH RPTION PLANT OPERATOR HELPER documented in this encounter Plan of Treatment Scheduled Orders Name Type Priority Associated Diagnoses Orde r Schedule Pulse Oximetry, Spot PFT Routine WITH VITALS until discontinued starting 10/16/2019 documented as of this encounter Procedures Procedure Name Priority Date/Time Associated Diagnosis Comments PATHOLOGY SURGICAL Routine 10/16/2019 12 :40 PM ABSORPTION PLANT OPERATOR HELPER COLONOSCOPY 10/16/2019 12:28 PM ABSORPTION PLANT OPERATOR HELPER COLONOSCOPY-RIGHT COLON BIOPSIES, LEFT COLON BIOPSIES, HEMORRHOIDS, NORMAL COLON, NORMAL TERMINAL ILEUM Special Needs BF 10/16 documented in this encounter Results * Pathology Surgical (10/16/2019 12:40 PM ABSORPTION PLANT OPERATOR HELPER) Case Report Surgical Pathology Report ? Case: [id number] ? Authorizing Provider: ??Meri Stephens, Collected: ? 10/16/2019 12:40 PM ? Ordering Location: ? [facility] ? Received: ?10/16/2019 01:44 PM ? [facility] ? Lab Main ? Pathologist: ? Ladonna, Tania Antonio, ? MD ? Specimens: ?? A) - COLON, RIGHT COLON BIOPSIES ? B) - COLON, LEFT COLON BIOPSIES ? 10/17/2019 3:56 PM [facility] Final Diagnosis A. ??Colon, right, biopsy: ?- ??No pathologic diagnosis. B. ??Colon, left, biopsy: ?- ??No pathologic diagnosis. 10/17/2019 3:56 PM [facility] Pre-Operative Diagnosis PERIUMBILICAL PAIN 10/17/2019 3:56 PM [facility] Gross Description The specimens present in [...] cassette B1 . ??CP/dv 10/17/2019 3:56 PM [facility] Microscopic Description 6 H&E. Microscopic examination supports the diagnoses. No increased intraepithelial lymphocytes, thickening of the epithelial basement membrane, significant acute inflammation, granuloma formation, or epithelial atypia is identified. (SES/sb) 10/17/2019 3:56 PM [facility] Tissue specimen (specimen) COLON STRUCTURE / Unknown 10/16/2019 12:40 PM ABSORPTION PLANT OPERATOR HELPER 10/16/2019 1:44 PM ABSORPTION PLANT OPERATOR HELPER Tissue specimen (specimen) COLON STRUCTURE / Unknown 10/16/2019 12:47 PM ABSORPTION PLANT OPERATOR HELPER 10/16/2019 1:44 PM ABSORPTION PLANT OPERATOR HELPER us Meri Stephens MD PATHOLOGY/CYTOLOGY SHERYL CASTRO Final Result [facility] [address] [place] [address] documented in this encounter Visit Diagnoses Not on filedocumented in this encounter Administered Medications Inactive Administered Medications - up to 3 most recent administrations Medication Order MAR Action Action Date Dose Rate Site lactated ringers infusion at 20 mL/hr, Intravenous, CONTINUOUS, Starting on Wed10/16/19 at 1200, Until Wed10/16/19 at 1510 New Bag 10/16/2019 12:05 PM ABSORPTION PLANT OPERATOR HELPER 20 mL/hr 20 mL/hr ondansetron (ZOFRAN) injection 4 mg 4 mg, Intravenous, ONCE PRN, 1 dose, Starting on Wed10/16/19 at 1132, Until 10/16/19 at 1510, Nausea - 1st line, To be available to administer with physician present. For intra-procedure only. documented in this encounter Active and Recently Administered Medications Times are shown in ABSORPTION PLANT OPERATOR HELPER. Continuous Medication Order 10/14/2019 10/15/2019 10/16/2019 lactated ringers infusion at 20 mL/hr, Intravenous, CONTINUOUS, Starting on Wed10/16/19 at 1200, Until Wed10/16/19 at 1510 1205 (New Bag - Prov ider: Patty Huynh, RN)1300 (Stopped - Provider: Janel Mckinley RN) PRN Medication Order 10/14/2019 10/15/2019 10/16/2019 ondansetron (ZOFRAN) injection 4 mg 4 mg, Intravenous, ONCE PRN, 1 dose, Starting on Wed10/16/19 at 1132, Until 10/16/19 at 1510, Nausea - 1st line, To be available to administer with physician present. For intra-procedure only. documented in this encounter Care Teams Turn Supervisor Relationship Specialty Start Date End Date Matthew Escamilla MD [address] [place] [address] PCP - General Pediatrics 08/24/19 documented as of this encounter
--- OUTSIDE RECORDS SUMMARY | 2024-08-19 05:56 | XMS_ITS | Encounter Summary ---
Author Organization [facility] Address [address] [place] [address] Phone Care Team Providers Care Penal Officer Name Role Phone Matthew Nesbitt MD Primary Care Provider Reason for Visit * Reason Onset Date Comments Results 09/18/2019 CT Scan Encounter Details Date Type Department Care Team (Late st Contact Info) Description 09/18/2019 Telephone [facility] [address] [place] [phone] Yolie Allen, APPAREL MERCHANDISER, MANAGING ATTORNEY [address] [address] Results (CT Scan) Social History Tobacco Use Types Packs/Day Years Used Date Smoking Tobacco: Never Smokeless Tobacco: Never Alcohol Use Standard Drinks/Week Comments Not Currently 0 (1 standard drink = 0.6 oz pur e alcohol) Sex and Gender Information Value Date Recorded Sex Assigned at Not on file Legal Sex Male 7:55 AM AUTOMOTIVE WINDOW TINTER Gender Identity Not on file Sexual Orientation Not on file documented as of this encounter Miscellaneous Notes * Telephone Encounter - Cassidy Parada RN - 09/18/2019 9:45 AM CST Patient returned call. Patient notified of results. Patient verbalizes understanding. Letter not sent Patient transferred to have US scheduled Patient had lab work in [place], so out office should get the results. MOTIVE WINDOW TINTER * Telephone Encounter - Cassidy Parada RN - 09/18/2019 9:39 AM CST Left message on machine. Letter sent. MOTIVE WINDOW TINTER * Telephone Encounter - Cassidy Parada RN - 09/18/2019 9:38 AM CST ----- Message from Yolie Allen APN, MANAGING ATTORNEY sent at 09/18/2019 9:08 AM AUTOMOTIVE WINDOW TINTER ----- Fatty liver noted. Low fat diet. Have him get blood work I placed during OV to check lfts Possible gallbladder stones vs polyp. I would like to get abd US to further assess MOTIVE WINDOW TINTER documented in this encounter Plan of Treatment Not on file documented as of this encounter Visit Diagnoses Not on filedocumented in this encounter Care Teams Penal Officer Relationship Specialty Start Date End Date Matthew Nesbitt MD [address] [place], [place] [id number] PCP - General Pediatrics 08/24/19 documented as of this encounter
--- OUTSIDE RECORDS SUMMARY | 2024-08-19 05:56 | XMS_ITS | Encounter Summary ---
Author Organization [employer] Care Team Providers Care Admission Nurse Coordinator Name Role Phone Matthew Nesbitt MD Primary Care Provider [phone] Encounter Details Date Type Department Care Team (Latest Contact Info) Description 10/16/2019 Travel Social History Tobacco Use Types Packs/Day Years Used Date Smoking Tobacco: Never Smokeless Tobacco: Never Alcohol Use Standard Drinks/Week Comments Not Currently 0 (1 standard drink = 0.6 oz pur e alcohol) Sex and Gender Information Value Date Recorded Sex Assigned at Not on file Legal Sex Male 7:55 AM TAPPER HELPER Gender Identity Not on file Sexual Orientation Not on file documented as of this encounter Plan of Treatment Not on file documented as of this encounter Visit Diagnoses Not on filedocumented in this encounter Care Teams Admission Nurse Coordinator Relationship Specialty Start Date End Date Matthew Nesbitt MD [address] [place] [address] PCP - General Pediatrics 08/24/19 documented as of this encounter
--- OUTSIDE RECORDS SUMMARY | 2024-08-19 05:56 | XMS_ITS | Encounter Summary ---
Author Organization [facility] Address [address] [place] [address] Phone Care Team Providers Care Iron Miner Blasting Name Role Phone Matthew Nesbitt MD Primary Care Provider Encounter Details Date Type Department Care Team (Late st Contact Info) Description 09/05/2019 Telephone [facility] [address] [place] [phone] Zbigniew Gallardo, DO [address] [address] Social History Tobacco Use Types Packs/Day Years Used Date Smoking Tobacco: Never Smokeless Tobacco: Never Alcohol Use Standard Drinks/Week Comments Yes 0 (1 standard drink = 0.6 oz pur e alcohol) Sex and Gender Information Value Date Recorded Sex Assigned at Not on file Legal Sex Male 7:55 AM MOVIE WRITER Gender Identity Not on file Sexual Orientation Not on file documented as of this encounter Miscellaneous Notes * Telephone Encounter - Leonora Martinez CMA - 09/05/2019 1:39 PM MOVIE WRITER Prep colonoscopy prep E WRITER documented in this encounter Plan of Treatment Not on file documented as of this encounter Visit Diagnoses Not on filedocumented in this encounter Care Teams Iron Miner Blasting Relationship Specialty Start Date End Date Matthew Nesbitt MD [address] [place] [address] PCP - General Pediatrics 08/24/19 documented as of this encounter
--- OUTSIDE RECORDS SUMMARY | 2024-08-19 05:56 | XMS_ITS | Encounter Summary ---
Author Organization [facility] Address [address] [place] [address] Phone Care Team Providers Care Iron Assorter Name Role Phone Matthew Nesbitt MD Primary Care Provider Encounter Details Date Type Department Care Team (Late st Contact Info) Description 09/28/2019 Telephone [facility] - Gastroenter[facility] [address] [place] [phone] Zbigniew Gallardo, DO [address] [address] Social History Tobacco Use Types Packs/Day Years Used Date Smoking Tobacco: Never Smokeless Tobacco: Never Alcohol Use Standard Drinks/Week Comments Not Currently 0 (1 standard drink = 0.6 oz pur e alcohol) Sex and Gender Information Value Date Recorded Sex Assigned at Not on file Legal Sex Male 7:55 AM LEHR LOADER Gender Identity Not on file Sexual Orientation Not on file documented as of this encounter Miscellaneous Notes * Telephone Encounter - Leonroa Martinez CMA - 09/28/2019 9:28 AM LEHR LOADER Colonoscopy prep instructions LOADER documented in this encounter Plan of Treatment Not on file documented as of this encounter Visit Diagnoses Not on filedocumented in this encounter Care Teams Iron Assorter Relationship Specialty Start Date End Date Matthew Nesbitt MD [address] [place] [address] PCP - General Pediatrics 08/24/19 documented as of this encounter
--- OUTSIDE RECORDS SUMMARY | 2024-08-19 05:56 | XMS_ITS | Encounter Summary ---
Author Organization [facility] Address [address] [place] [address] Phone Care Team Providers Care Upsetting Machine Operator Name Role Phone Matthew Nesbitt MD Primary Care Provider Encounter Details Date Type Department Care Team (Late st Contact Info) Description 09/07/2019 Telephone [facility] [address] [place] [phone] Zbigniew Gallardo, DO [address] [address] Social History Tobacco Use Types Packs/Day Years Used Date Smoking Tobacco: Never Smokeless Tobacco: Never Alcohol Use Standard Drinks/Week Comments Not Currently 0 (1 standard drink = 0.6 oz pur e alcohol) Sex and Gender Information Value Date Recorded Sex Assigned at Not on file Legal Sex Male 7:55 AM LABEL FOLDER Gender Identity Not on file Sexual Orientation Not on file documented as of this encounter Miscellaneous Notes * Telephone Encounter - Briseyda Lieberman - 09/07/2019 9:39 AM CST Labs faxed to pcp per pts request L FOLDER documented in this encounter Plan of Treatment Not on file documented as of this encounter Visit Diagnoses Not on filedocumented in this encounter Care Teams Upsetting Machine Operator Relationship Specialty Start Date End Date Matthew Nesbitt MD [address] [place] [address] PCP - General Pediatrics 08/24/19 documented as of this encounter
--- OUTSIDE RECORDS SUMMARY | 2024-08-19 05:56 | XMS_ITS | Encounter Summary ---
Author Organization [employer] Care Team Providers Care Health Policy Analyst Name Role Phone Matthew Nesbitt MD Primary Care Provider [phone] Encounter Details Date Type Department Care Team (Latest Contact Info) Description 09/05/2019 Travel Social History Tobacco Use Types Packs/Day Years Used Date Smoking Tobacco: Never Smokeless Tobacco: Never Alcohol Use Standard Drinks/Week Comments Yes 0 (1 standard drink = 0.6 oz pur e alcohol) Sex and Gender Information Value Date Recorded Sex Assigned at Not on file Legal Sex Male 7:55 AM LARDER COOK Gender Identity Not on file Sexual Orientation Not on file documented as of this encounter Plan of Treatment Not on file documented as of this encounter Visit Diagnoses Not on filedocumented in this encounter Care Teams Health Policy Analyst Relationship Specialty Start Date End Date Matthew Nesbitt MD [address] [place] [address] PCP - General Pediatrics 08/24/19 documented as of this encounter
--- OUTSIDE RECORDS SUMMARY | 2024-08-19 05:56 | XMS_ITS | Encounter Summary ---
Author Organization [facility] Address [address] [place] [address] Phone Care Team Providers Care Singer Back Tender Name Role Phone Matthew Nesbitt MD Primary Care Provider Reason for Visit * Reason Onset Date Comments Results 10/18/2019 Colonoscopy Encounter Details Date Type Department Care Team (Late st Contact Info) Description 10/18/2019 Telephone [facility] [address] [place] [address] Meri Stephens MD [address] [place] [address] Results (Colonoscopy) Social History Tobacco Use Types Packs/Day Years Used Date Smoking Tobacco: Never Smokeless Tobacco: Never Alcohol Use Standard Drinks/Week Comments Not Currently 0 (1 standard drink = 0.6 oz pur e alcohol) Sex and Gender Information Value Date Recorded Sex Assigned at Not on file Legal Sex Male 7:55 AM TELEGRAPH OPERATOR Gender Identity Not on file Sexual Orientation Not on file documented as of this encounter Miscellaneous Notes * Telephone Encounter - Cassidy Parada RN - 10/19/2019 8:44 AM CST Patient returned call. OV was made for 11/03/19 GRAPH OPERATOR * Telephone Encounter - Cassidy Parada RN - 10/19/2019 8:30 AM CST Images from the original note were not included. Meri Stephens MD You 16 hours ago (4:16 PM) I am assuming musculoskeletal pain. I would like to know more about his pain to determine this. He was not talking about pain when I have seen him for colonoscopy. I would like to see him in the office in 10/2019 to determine the likley cause of his pain. Routing comment Left message on machine for patient to return call to office. GRAPH OPERATOR * Telephone Encounter - Cassidy Parada RN - 10/18/2019 3:39 PM CST Patient notified of results. Patient verbalizes understanding. Health maintenance updated and recall placed per or note Patient would like to know what the next step is for the abdominal pain he is having. GRAPH OPERATOR * Telephone Encounter - Cassidy Parada RN - 10/18/2019 3:39 PM CST ----- Message from Meri Stephens MD sent at 10/17/2019 10:46 PM TELEGRAPH OPERATOR ----- Colon biopsies normal. GRAPH OPERATOR documented in this encounter Plan of Treatment Not on file documented as of this encounter Visit Diagnoses Not on filedocumented in this encounter Care Teams Singer Back Tender Relationship Specialty Start Date End Date Matthew Nesbitt MD [address] [place] [address] PCP - General Pediatrics 08/24/19 documented as of this encounter
--- OUTSIDE RECORDS SUMMARY | 2024-08-19 05:56 | XMS_ITS | Encounter Summary ---
Author Organization [facility] Address [address] [place] [address] Phone Care Team Providers Care Cytogenetics Laboratory Manager Name Role Phone Matthew Nesbitt MD Primary Care Provider [phone] Reason for Visit * Reason Onset Date Comments Results 09/26/2019 US of abdomen Encounter Details Date Type Department Care Team (Late st Contact Info) Description 09/26/2019 Telephone [facility] [address] [place] [address] Yolie Allen, RECORD FILING CLERK, ATTENDING PATHOLOGIST [address] [address] Results (US of abdomen) Social History Tobacco Use Types Packs/Day Years Used Date Smoking Tobacco: Never Smokeless Tobacco: Never Alcohol Use Standard Drinks/Week Comments Not Currently 0 (1 standard drink = 0.6 oz pur e alcohol) Sex and Gender Information Value Date Recorded Sex Assigned at Not on file Legal Sex Male 7:55 AM AUTOMOTIVE PARTS MANAGER Gender Identity Not on file Sexual Orientation Not on file documented as of this encounter Miscellaneous Notes * Telephone Encounter - Cassidy Parada RN - 09/26/2019 1:23 PM CST Patient notified of results. Patient verbalizes understanding. MOTIVE PARTS MANAGER * Telephone Encounter - Cassidy Parada RN - 09/26/2019 1:23 PM CST ----- Message from Yolie Allen APN, ATTENDING PATHOLOGIST sent at 09/25/2019 10:22 AM AUTOMOTIVE PARTS MANAGER ----- Fatty liver. Nothing noted in gallbladder MOTIVE PARTS MANAGER documented in this encounter Plan of Treatment Not on file documented as of this encounter Visit Diagnoses Not on filedocumented in this encounter Care Teams Cytogenetics Laboratory Manager Relationship Specialty Start Date End Date Matthew Nesbitt MD [address] [place], [place] [id number] PCP - General Pediatrics 08/24/19 documented as of this encounter
--- OUTSIDE RECORDS SUMMARY | 2024-08-19 05:56 | XMS_ITS | Encounter Summary ---
Author Organization [facility] Address [address] [place] [address] Phone Care Team Providers Care Monotype Mechanic Name Role Phone Matthew Nesbitt MD Primary Care Provider [phone] Reason for Visit * Reason Onset Date Comments Results 09/20/2019 lab work from 09/07/19 and 09/12/19 at [facility] Encounter Details Date Type Department Care Team (Late st Contact Info) Description 09/20/2019 Telephone [facility] - Gastroenterology [facility] [address] [place] [address] Yolie Allen, SATURNINO, TRANSITION ADVISOR [address] [address] Results (lab work from 09/07/19 and 09/12/19 at [facility]) Social History Tobacco Use Types Packs/Day Years Used Date Smoking Tobacco: Never Smokeless Tobacco: Never Alcohol Use Standard Drinks/Week Comments Not Currently 0 (1 standard drink = 0.6 oz pur e alcohol) Sex and Gender Information Value Date Recorded Sex Assigned at Not on file Legal Sex Male 7:55 AM CEO NA Gender Identity Not on file Sexual Orientation Not on file documented as of this encounter Miscellaneous Notes * Telephone Encounter - Cassidy Parada RN - 09/20/2019 2:54 PM CST Patient returned call. Patient notified of results. Patient verbalizes understanding. Letter not sent NA * Telephone Encounter - Cassidy Parada RN - 09/20/2019 2:38 PM CST Facility: [facility] Test: lab work Results: normal Orders: none Test on: 09/07/19 and 09/12/19 Placed in paperwork to go to [facility] on: 09/20/19 Left message on machine. Letter sent. NA documented in this encounter Plan of Treatment Not on file documented as of this encounter Visit Diagnoses Not on filedocumented in this encounter Care Teams Monotype Mechanic Relationship Specialty Start Date End Date Matthew Nesbitt MD [address] [place] [address] PCP - General Pediatrics 08/24/19 documented as of this encounter
--- OUTSIDE RECORDS SUMMARY | 2024-08-19 05:56 | XMS_ITS | Encounter Summary ---
Author Organization [facility] Address [address] [place] [address] Phone Care Team Providers Care Ship Surveyor Name Role Phone Matthew Nesbitt MD Primary Care Provider Encounter Details Date Type Department Care Team (Late st Contact Info) Description 10/10/2019 Telephone [facility] - [facility]astroenterology [facility] [address] [place] [address] Meri Stephens MD [address] [place] [address] Social History Tobacco Use Types Packs/Day Years Used Date Smoking Tobacco: Never Smokeless Tobacco: Never Alcohol Use Standard Drinks/Week Comments Not Currently 0 (1 standard drink = 0.6 oz pur e alcohol) Sex and Gender Information Value Date Recorded Sex Assigned at Not on file Legal Sex Male 7:55 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 Meri Stephens MD You 2 hours ago (11:08 AM) No, he can have it without sedation. It depends on the pt tolerability to colon distension from air. If he cannot tolerate the procedure without sedation, we have always request anesthesia help who are always standby. Routing comment Left detailed message for patient. ORGAN BUILDER * Telephone Encounter - Cassidy Parada RN - 10/10/2019 10:24 AM CST Patient left voicemail asking if he could have the colonoscopy that is schedule on 10/16/19 WITHOUT sedation. Patient asking if there is a reason this is not recommended. Patient asked to leave a detailed voicemail when our office calls back since he is at work. ORGAN BUILDER documented in this encounter Plan of Treatment Not on file documented as of this encounter Visit Diagnoses Not on filedocumented in this encounter Care Teams Ship Surveyor Relationship Specialty Start Date End Date Matthew Nesbitt MD [address] [place], [place] [id number] PCP - General Pediatrics 08/24/19 documented as of this encounter
--- OUTSIDE RECORDS SUMMARY | 2024-08-19 05:56 | XMS_ITS | Encounter Summary ---
Author Organization [facility] Address [address] [place] [address] Phone Care Team Providers Care Vp Corporate Development Name Role Phone Matthew Nesbitt MD Primary Care Provider [phone] Reason for Referral * Radiology Services (Routine) - Closed Specialty Diagnoses / Procedures Referred By Fatmata t Referred To Contact Radiology Diagnoses Abnormal CT scan, gallbladder Procedures US ABDOMEN COMPLETE Yolie Allen APRN, CASH POSTING CLERK Phone: tel: fax: Referral ID Status Reason Start Date Expiration Date Visits Re quested Visits Authorized [id number] Closed 09/18/2019 1 2 CLASS SPECIAL EDUCATION TEACHER Reason for Visit * Radiology Services (Routine) - Closed Specialty Diagnoses / Procedures Referred By Fatmata gutierrez Referred To Contact Radiology Diagnoses Abnormal CT scan, gallbladder Procedures US ABDOMEN COMPLETE Yolie Allen APRN, CASH POSTING CLERK Phone: tel: fax: Referral ID Status Reason Start Date Expiration Date Visits Re quested Visits Authorized [id number] Closed 09/18/2019 1 2 Encounter Details Date Type Department Care Team (Latest Contact Info) Description 09/25/2019 8:40 AM IN CLASS SPECIAL EDUCATION TEACHER - 09/25/2019 11:59 PM IN CLASS SPECIAL EDUCATION TEACHER [facility] Ul[facility]ound [address] [place] [address] Yolie Allen APRN, CASH POSTING CLERK [address] [address] Discharge Disposition: Discharged to home or Selfcare Social History Tobacco Use Types Packs/Day Years Used Date Smoking Tobacco: Never Smokeless Tobacco: Never Alcohol Use Standard Drinks/Week Comments Not Currently 0 (1 standard drink = 0.6 oz pur e alcohol) Sex and Gender Information Value Date Recorded Sex Assigned at Not on file Legal Sex Male 7:55 AM IN CLASS SPECIAL EDUCATION TEACHER Gender Identity Not on file Sexual Orientation [...] Procedure Name Priority Date/Time Associated Diagnosis Comments US ABDOMEN COMPLETE Routine 09/25/2019 8 :58 AM IN CLASS SPECIAL EDUCATION TEACHER Abnormal CT scan, gallbladder documented in this encounter Results * US ABDOMEN COMPLETE (09/25/2019 8:58 AM IN CLASS SPECIAL EDUCATION TEACHER) Anatomical Region Laterality Modality Abdomen N/A Ultrasound 09/25/2019 10:1 1 AM IN CLASS SPECIAL EDUCATION TEACHER Impressions 09/25/2019 10:14 AM IN CLASS SPECIAL EDUCATION TEACHER IMPRESSION: ?? 1. ??No evidence of an acute abnormality. 2. ??No sonographic evidence of cholelithiasis or other gallbladder pathology. 3. ??Hepatic steatosis. Narrative 09/25/2019 10:14 AM IN CLASS SPECIAL EDUCATION TEACHER EXAM DESCRIPTION: ??US ABDOMEN COMPLETE REASON FOR [...] AM T: ??09/25/2019 10:11 AM Report ID: [id number] Reading Location: ??[id number] Procedure Note Andrea Benitez Jr., MD - [...] Andrea Benitez M.D. CH: KARMEN Report ID: [id number] Reading Location: [place] [address] IMPRESSION: 1. No evidence of an acute abnormality. 2. No sonographic evidence of cholelithiasis or other gallbladder pathology. 3. Hepatic steatosis. Yolie Allen APRN, CASH POSTING CLERK IMG US ORDERABLES Final Result documented in this encounter Visit Diagnoses Diagnosis Abnormal CT scan, gallbladder Nonspecific (abnormal) findings on radiological and other examination of biliary tract documented in this encounter Care Teams Vp Corporate Development Relationship Specialty Start Date End Date Matthew Nesbitt MD [address] [place] [address] PCP - General Pediatrics 08/24/19 documented as of this encounter
--- OUTSIDE RECORDS SUMMARY | 2024-08-19 05:56 | XMS_ITS | Encounter Summary ---
Author Organization [facility] Address [address] [place] [address] Phone Care Team Providers Care Hospital Superintendent Name Role Phone Matthew Nesbitt MD Primary Care Provider [phone] Reason for Referral * Other (Routine) - Closed Specialty Diagnoses / Procedures Referred By Contac t Referred To Contact Gastroenterology Diagnoses Periumbilical pain Procedures GASTRO PROCEDURE Yolie Allen APRN, CNP Phone: tel: fax: Meri Stephens MD Phone: tel: fax: Referral ID Status Reason Start Date Expiration Date Visits Re quested Visits Authorized [id number] Closed 09/05/2019 1 1 DE SALES TERRITORY MANAGER * Radiology Services (Routine) - Closed Specialty Diagnoses / Procedures Referred By Contac t Referred To Contact Radiology Diagnoses Periumbilical pain Procedures CT ABDOMEN PELVIS W/ CONTRAST Yolie Allen APRN, CNP Phone: tel: fax: Referral ID Status Reason Start Date Expiration Date Visits Re quested Visits Authorized [id number] Closed 09/05/2019 1 2 DE SALES TERRITORY MANAGER Reason for Visit * Reason Comments New Patient Abdominal pain * Consult, Test & Initiate Treatment (Less Than 4 Weeks) - Closed Specialty Diagnoses / Procedures Referred By Contact Referred To Contact Gastroenterology Diagnoses Abdominal pain Procedures OFFICE/OUTPT VISIT,ZOILA HERNANDEZ III, Bryan C, MD [address] [place] [address] Phone: tel: fax: [facility] Gastroenterology [facility] [address] [place] [address] Phone: tel: fax: Referral ID Status Reason Start Date Expiration Date Visits Re quested Visits Authorized [id number] Closed 1 1 Encounter Details Date Type Department Care Team (Latest Contact Info) Description 09/05/2019 1:30 PM INSIDE SALES TERRITORY MANAGER Office Visit [facility] Gastroenterology [facility] [address] [place] [address] Yolie Allen, SEX CRIMES DETECTIVE, STILL CLEANER TUBE [address] [address] Periumbilical pain (Primary Dx); Elevated ALT measurement Discharge Disposition: Discharged to home or Selfcare Social History Tobacco Use Types Packs/Day Years Used Date Smoking Tobacco: Never Smokeless Tobacco: Never Tobacco Cessation:Counseling Given: No Alcohol Use Standard Drinks/Week Comments Yes 0 (1 standard drink = 0.6 oz pur e alcohol) Sex and Gender Information Value Date Recorded Sex Assigned at Not on file Legal Sex Male 7:55 AM INSIDE SALES TERRITORY MANAGER Gender Identity Not on file Sexual Orientation Not on file documented as of this encounter Last Filed Vital Signs Vital Sign Reading Time Taken Comments Blood Pressure 166/90 09/05/2019 1:13 PM INSIDE SALES TERRITORY MANAGER Pulse 95 09/05/2019 1:13 PM INSIDE SALES TERRITORY MANAGER Temperature 36.6 ??C (97.9 ??F) 09/05/2019 1:13 PM CS T Respiratory Rate 16 09/05/2019 1:13 PM INSIDE SALES TERRITORY MANAGER Oxygen Saturation 96% 09/05/2019 1:13 PM INSIDE SALES TERRITORY MANAGER Inhaled Oxygen Concentration - - Weight 105.2 kg (232 lb) 09/05/2019 1:13 PM INSIDE SALES TERRITORY MANAGER Height 167.6 cm (5' 6 ) 09/05/2019 1:13 PM INSIDE SALES TERRITORY MANAGER Body Mass Index 37.45 09/05/2019 1:13 PM INSIDE SALES TERRITORY MANAGER documented in this encounter Progress Notes * Yolie Allen, MARISA, STILL CLEANER TUBE - 09/05/2019 1:30 PM CST [facility] GASTROENTEROLOGY CONSULT/H&P NAME: Tam Mari DATE 1980 DATE OF CONSULT: 09/05/2019 Very pleasant patient was seen at the request of Dr. Nesbitt and with the patient's permission. The patient was examined and the chart was reviewed. IMPRESSION: 1. Here we have a very pleasant 39-year-old gentleman who reports to the office for new onset umbilical and lower abdominal pain since June. Certainly will rule out any underlying pathological process and inflammatory bowel disease. Certainly could be compatible with irritable bowel syndrome, and although we will rule out any underlying colitis or underlying hernias as well. 2. History of elevated ALT of 72 with other normal liver enzymes. Certainly could be related to underlying fatty liver disease. Does not drink. 3. Hypertension. RECOMMENDATIONS: 1. Will go ahead and get a CT of the abdomen and pelvis. 2. Colonoscopy. 3. Bentyl as needed. He can continue with omeprazole. 4. Consider EGD possibly if all else is negative. HISTORY: Here we have a very pleasant 39-year-old gentleman who is referred over by Dr. Nesbitt for abdominal pains. The patient reports in [...] correlation of this pain with bowel patterns. He does say that eating and having a [...] abdominal pain or radiation to the back. He denies any indigestion or heartburn. Denies any trouble swallowing or pain with swallowing. FAMILY HISTORY: History of colon cancer in a maternal grandmother, but no family history of inflammatory bowel disease. He has not had any abdominal ultrasounds or CT imaging. He did go to the ER for this, but no imaging was obtained. He denies any history of intravenous drug use. He denies any heavy alcohol usage. He denies any abnormal weight loss, fever, or chills associated with this. Denies any nausea or vomiting. IJN: [id number] ALLERGIES: No Known Allergies MEDICATIONS (Not in a hospital admission) MEDICAL HISTORY: Past Medical History Positives Diagnosis [...] Substance and Sexual Activity ??? Alcohol use: Yes ??? Drug use: Never ??? Sexual activity: Not on file Lifestyle ??? Physical activity: Days per week: Not on file Minutes per session: Not on file ??? Stress: Not on file Relationships ??? Social connections: Talks on phone: Not on file Gets together: Not on file Attends restorationism service: Not on file Active member of [...] Social History Narrative ??? Not on file REVIEW OF SYSTEMS: A 14 point review of systems was performed and was negative other than what is mentioned under the HPI. EXAMINATION BP 166/90 Pulse 95 Temp 97.9 ??F (36.6 ??C) Resp 16 Ht 5' 6 (1.676 m) Wt 232 lb (105.2 kg) SpO2 96% BMI 37.45 kg/m?? General appearance: alert, no distress, cooperative, appears stated age Head: Normocephalic, without obvious abnormality, atraumatic Eyes: no icterus Lungs: no acute distress, clear to auscultation bilaterally anterior and posterior, good effort. Heart: regular rate and rhythm, S1, S2 normal, no murmur, click, rub or gallop Abdomen: obese soft, non-tender. Bowel sounds normal. No masses, no organomegaly. Extremities: extremities normal, atraumatic, no cyanosis or edema, negative homans/sami Pulses: pedal pulses intact Skin: Skin color, texture, turgor normal. No rashes or lesions Neurologic: Alert and oriented X 3. Mental status exam was completely normal. Dress, hygeine, and appearance are appropriate. Overall affect is normal. Rectal exam: Deferred. Thank you for much for the opportunity to participate in the care of this patient. Please do not hesitate to contact us if we can be of any further assistance. Documentation for this visit on 09/05/2019 was completed using a template. I have seen and examined the patient. Everything documented was personally performed at this visit with the necessary additions, deletions and changes made as appropriate. DE SALES TERRITORY MANAGER DE SALES TERRITORY MANAGER documented in this encounter Plan of Treatment Scheduled Orders Name Type Priority Associated Diagnoses Orde r Schedule HEPATIC FUNCTION PANEL Lab Routine Elevated ALT measurement Expected: 10/04/2019, Expires: 03/05/2020 GASTRO PROCEDURE Procedures Routine Periumbilical pain Expected: 09/05/2019 (Approximate), Expires: 11/05/2019 documented as of this encounter Results * CT ABDOMEN PELVIS W/ CONTRAST (09/15/2019 1:12 PM INSIDE SALES TERRITORY MANAGER) Anatomical Region Laterality Modality Abdomen N/A Computed Tomogra phy 09/16/2019 8:17 AM INSIDE SALES TERRITORY MANAGER Impressions 09/16/2019 8:20 AM INSIDE SALES TERRITORY MANAGER IMPRESSION: ?? 1. ??No evidence of an acute abnormality of the abdomen and pelvis. 2. ??Hepatic steatosis. 3. ??Possible small gallstone or biliary sludge, or small gallbladder polyp. ??This could be correlated with ultrasound if needed for further assessment. Narrative 09/16/2019 8:20 AM INSIDE SALES TERRITORY MANAGER EXAM DESCRIPTION: ??CT ABDOMEN PELVIS W/ CONTRAST [...] AM T: ??09/16/2019 8:17 AM Report ID: [id number] Reading Location: ??[id number] Procedure Note Andrea Benitez Jr., MD - [...] Andrea Benitez M.D. CH: KARMEN Report ID: [id number] Reading Location: [id number] IMPRESSION: 1. No evidence of an acute abnormality of the abdomen and pelvis. 2. Hepatic steatosis. 3. Possible small gallstone or biliary sludge, or small gallbladder polyp. This could be correlated with ultrasound if needed for further assessment. Yolie Allen APRN, CNP IMG CT ORDERABLES Final Result * HEPATITIS PANEL ACUTE (AHP) (09/07/2019) Blood specimen (specimen) Yolie Allen APRN, CNP HEMATOLOGY ORDERA BLES Final Result documented in this encounter Visit Diagnoses Diagnosis Periumbilical pain- Primary Abdominal pain, periumbilic Elevated ALT measurement Nonspecific elevation of levels of transaminase or lactic acid dehydrogenase (LDH) Periumbilical pain Abdominal pain, periumbilic documented in this encounter Care Teams Hospital Superintendent Relationship Specialty Start Date End Date Matthew Nesbitt MD [address] [place], [place] [id number] PCP - General Pediatrics 08/24/19 documented as of this encounter
--- OUTSIDE RECORDS SUMMARY | 2024-08-19 05:56 | XMS_ITS | Encounter Summary ---
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
--- OUTSIDE RECORDS SUMMARY | 2024-08-19 06:13 | XMS_ITS | Encounter Summary ---
Author Organization [facility] Address [facility] [place] [address] [place] [address] Care Team Providers Care Tig Welder Name Role Phone Matthew Nesbitt MD Primary Care Provider [phone] Encounter Details Date Type Department Care Team (Late st Contact Info) Description 06/16/2019 Abstract [facility] Emergency Services [address] [place] [address] Javier Justin MD [address] [place] [id number] Social History Tobacco Use Types Packs/Day Years [...] on filedocumented in this encounter Care Teams Tig Welder Relationship Specialty Start Date End Date Matthew Nesbitt MD [address] [place] [address] PCP - General FAMILY PRACTICE 06/15/19 documented as of this encounter
--- OUTSIDE RECORDS SUMMARY | 2024-08-19 06:13 | XMS_ITS | Clinical Summary ---
Author Organization [facility] Address [facility] [facility] [place] [address] [place] [address] Care Team Providers Care Business Management Associate Name Role Phone Matthew Nesbitt MD Primary Care Provider [phone] Allergies No known active allergies Medications losartan [...] complete this topic Insurance [employer] Care Teams Business Management Associate Relationship Specialty Start Date End Date Matthew Nesbitt MD [address] [place], [place] [id number] PCP - General FAMILY PRACTICE 06/15/19
--- OUTSIDE RECORDS SUMMARY | 2024-08-19 06:13 | XMS_ITS | Encounter Summary ---
Author Organization [facility] Address [facility] [place] [address] [place] [address] Care Team Providers Care Pricing Strategist Name Role Phone Matthew Nesbitt MD Primary Care Provider [phone] Reason for Visit * Reason Comments Skin [...] CDT - 06/15/2019 8:39 PM CDT Emergency [facility] [address] Andrez Samayoa MD [address] [place] [id number] Skin Problem (Pt arrives to ED with [...] be sent through Care Everywhere. * Shingles (Malagasy) documented in this encounter Medications at Time [...] file Gets together: Not on file Attends episcopal service: Not on file Active member of [...] RN) documented in this encounter Care Teams Pricing Strategist Relationship Specialty Start Date End Date Matthew Nesbitt MD [address] [place] [address] PCP - General FAMILY PRACTICE 06/15/19 documented as of this encounter
--- OUTSIDE RECORDS SUMMARY | 2024-08-19 06:14 | XMS_ITS | Encounter Summary ---
Author Organization [facility] Address [address] [facility] [place] [address] [place] [address] Care Team Providers Care Route Cdl Driver Name Role Phone Matthew Nesbitt MD Primary Care Provider [phone] Encounter Details Date Type Department Care Team (Late st Contact Info) Description 01/28/2016 Abstract [facility] Emergency Services [address] [place] [address] Alex Crandall MD [address] [place] [address] Social History Tobacco Use Types Packs/Day Years [...] on filedocumented in this encounter Care Teams Route Cdl Driver Relationship Specialty Start Date End Date Matthew Nesbitt MD [address] [place] [address] PCP - General FAMILY PRACTICE 06/15/19 documented as of this encounter
--- OUTSIDE RECORDS SUMMARY | 2024-08-19 06:14 | XMS_ITS | Encounter Summary ---
Author Organization [facility] Address [facility] [place] [address] [place] [address] Care Team Providers Care Manager Account Management Name Role Phone Matthew Nesbitt MD Primary Care Provider [phone] Encounter Details Date Type Department Care Team (Late st Contact Info) Description 11/13/2017 Abstract [facility] Emergency Services [address] [place] [address] Wm Beavers MD Social History Tobacco Use [...] on filedocumented in this encounter Care Teams Manager Account Management Relationship Specialty Start Date End Date Matthew Nesbitt MD [address] [place] [address] PCP - General FAMILY PRACTICE 06/15/19 documented as of this encounter
--- OUTSIDE RECORDS SUMMARY | 2024-08-19 06:14 | XMS_ITS | Encounter Summary ---
Author Organization [facility] Address [address] [place] [address]. [place], [place] [address] [place] [address] Care Team Providers Care Machine Etcher Name Role Phone Unavailable Primary Care Provider Unavailabl e Encounter Details Date Type Department Care Team (Latest Contact Info) Description 11/16/2012 Abstract [facility] Medical Group Social History Tobacco Use Types [...]
--- OUTSIDE RECORDS SUMMARY | 2024-08-19 06:14 | XMS_ITS | Encounter Summary ---
Author Organization [facility] Address [facility] [facility] [place] [address] [place] [address] Care Team Providers Care Utilities Manager Name Role Phone Matthew Nesbitt MD Primary Care Provider Encounter Details Date Type Department Care Team (Late st Contact Info) Description 10/14/2017 Abstract [facility] Diagnostic Imaging [address] [place] [address] Matthew Nesbitt MD [address] [place] [address] Social History Tobacco Use Types Packs/Day Years [...] on filedocumented in this encounter Care Teams Utilities Manager Relationship Specialty Start Date End Date Matthew Nesbitt MD [address] [place] [address] PCP - General FAMILY PRACTICE 06/15/19 documented as of this encounter
--- OUTSIDE RECORDS SUMMARY | 2024-08-19 06:14 | XMS_ITS | Encounter Summary ---
Author Organization [facility] Address [facility] [place] [address] [place] [address] Care Team Providers Care Automobile Body Repair Supervisor Name Role Phone Matthew Nesbitt MD Primary Care Provider [phone] Encounter Details Date Type Department Care Team (Late st Contact Info) Description 03/15/2018 Abstract [facility] Emergency Services [address] [place] [address] Jamal Loomis MD [address] [place] [address] Social History Tobacco Use Types Packs/Day Years [...] on filedocumented in this encounter Care Teams Automobile Body Repair Supervisor Relationship Specialty Start Date End Date Matthew Nesbitt MD [address] [place] [address] PCP - General FAMILY PRACTICE 06/15/19 documented as of this encounter
--- OUTSIDE RECORDS SUMMARY | 2024-08-19 06:14 | XMS_ITS | Encounter Summary ---
Author Organization [facility] Address [address] [place] [address] [place] [address] Care Team Providers Care Piledriver Carpenter Name Role Phone Matthew Nesbitt MD Primary Care Provider [phone] Encounter Details Date Type Department Care Team (Late st Contact Info) Description 03/05/2016 Abstract [facility] Emergency Services [address] [place] [address] Alex Crandall MD [address] [place] [address] Social History Tobacco Use Types Packs/Day Years [...] on filedocumented in this encounter Care Teams Piledriver Carpenter Relationship Specialty Start Date End Date Matthew Nesbitt MD [address] [place] [address] PCP - General FAMILY PRACTICE 06/15/19 documented as of this encounter
--- OUTSIDE RECORDS SUMMARY | 2024-08-19 06:14 | XMS_ITS | Encounter Summary ---
Author Organization [facility] Address [address] [place] [address]. [place] [address] [place] [address] Care Team Providers Care Commercial Fisher Name Role Phone Unavailable Primary Care Provider Unavailabl e Encounter Details Date Type Department Care Team (Late st Contact Info) Description 03/06/2008 Abstract [facility] [address] [place] [address] Erlinda Noriega MD [address] [place] [address] [id number] Social History Tobacco Use Types Packs/Day Years [...]
--- OUTSIDE RECORDS SUMMARY | 2024-08-19 06:19 | XMS_ITS | Encounter Summary ---
Author Organization [employer] Care Team Providers Care General Surgery Physician Assistant Name Role Phone Matthew Nesbitt MD Primary Care Provider [phone] Encounter Details Date Type Department Care Team (Latest Contact Info) Description 09/25/2019 Travel Social History Tobacco Use Types Packs/Day Years Used Date Smoking Tobacco: Never Smokeless Tobacco: Never Alcohol Use Standard Drinks/Week Comments Not Currently 0 (1 standard drink = 0.6 oz pur e alcohol) Sex and Gender Information Value Date Recorded Sex Assigned at Not on file Legal Sex Male 7:55 AM LOCUM TENENS PSYCHIATRIST Gender Identity Not on file Sexual Orientation Not on file documented as of this encounter Plan of Treatment Not on file documented as of this encounter Visit Diagnoses Not on filedocumented in this encounter Care Teams General Surgery Physician Assistant Relationship Specialty Start Date End Date Matthew Nesbitt MD [address] [place] [address] PCP - General Pediatrics 08/24/19 documented as of this encounter
--- OUTSIDE RECORDS SUMMARY | 2024-08-19 06:19 | XMS_ITS | Encounter Summary ---
Author Organization [facility] Address [address] [place] [address] Phone Care Team Providers Care Diagram Clerk Name Role Phone Matthew Escamilla MD Primary Care Provider [phone]- [phone] Reason for Visit * Auth/Cert Specialty Diagnoses / Procedures Referred By Contac t Referred To Contact Diagnoses PERIUMBILICAL PAIN Procedures COLONOSCOPY Referral ID Status Reason Start Date Expiration Date Visits Re quested Visits Authorized [id number] 1 1 Encounter Details Date Type Department Care Team (Latest Contact Info) Description 10/16/2019 11:24 AM GUEST SERVICES LEAD - 10/16/2019 1:10 PM GUEST SERVICES LEAD Hospital Encounter [facility] GI Lab Preop/Pacu II [address] [place] [address] Meri Stephens MD [address] [place] [address] Discharge Disposition: Discharged to home or Selfcare Social History Tobacco Use Types Packs/Day Years Used Date Smoking Tobacco: Never Smokeless Tobacco: Never Alcohol Use Standard Drinks/Week Comments Not Currently 0 (1 standard drink = 0.6 oz pur e alcohol) Sex and Gender Information Value Date Recorded Sex Assigned at Not on file Legal Sex Male 7:55 AM GUEST SERVICES LEAD Gender Identity Not on file Sexual Orientation Not on file documented as of this encounter Last Filed Vital Signs Vital Sign Reading Time Taken Comments Blood Pressure 126/95 10/16/2019 12:59 PM GUEST SERVICES LEAD Pulse 106 10/16/2019 12:59 PM GUEST SERVICES LEAD Temperature 36 ??C (96.8 ??F) 10/16/2019 12:59 PM GUEST SERVICES LEAD Respiratory Rate 14 10/16/2019 12:59 PM GUEST SERVICES LEAD Oxygen Saturation 100% 10/16/2019 12:59 PM GUEST SERVICES LEAD Inhaled Oxygen Concentration - - Weight 102.1 kg (225 lb) 09/28/2019 3:00 PM GUEST SERVICES LEAD Height 167.6 cm (5' 6 ) 09/28/2019 3:00 PM GUEST SERVICES LEAD Body Mass Index 36.32 09/28/2019 3:00 PM GUEST SERVICES LEAD documented in this encounter Discharge Instructions * Discharge Instructions* Janel Mckinley, RN - 10/16/2019 1:03 PM GUEST SERVICES LEAD YOU HAD A COLONOSCOPY TODAY. DR. MERI STEPHENS FOUND: BIOPSY/BIOPSIES TAKEN. CALL OFFICE FOR BIOPSY RESULTS IN 2 WEEKS AT [phone] HEMORRHOIDS Recommendations: -Repeat colonoscopy in 10 years [...] WORK, UNLESS INSTRUCTED OTHERWISE. Call doctor's office ([phone]) or go to Emergency room for: Difficulty Breathing, Headache Or Visual Disturbances Persistent Dizziness Or Light-Headedness Persistent Nausea and Vomiting Temperature greater then 100.0 Significant abdominal pain, chest pain, or bleeding. Here at [facility] we strive to provide excellent care to [...] envelope is provided. THANK YOU FOR CHOOSING [facility]. T SERVICES LEAD documented in this encounter Medications at Time of Discharge dicyclomine (BENTYL) 20 MG Tablet Take 1 Tab by mouth every 6 hours. 30 Tab 09/05/2019 losartan (COZAAR) 25 MG Tablet nightly. 08/17/2019 documented as of this encounter H&P Notes * Yolie Allen APN, HOME SUPPORT WORKER - 10/16/2019 11:48 AM CST [facility] GASTROENTEROLOGY CONSULT/H&P NAME: Tam Mari [...] file Gets together: Not on file Attends confucianist service: Not on file Active member of [...] Meri Stephens MD at 10/16/2019 12:01 PM GUEST SERVICES LEAD T SERVICES LEAD T SERVICES LEAD Associated attestation - Meri Stephens MD - 10/16/2019 12:01 PM GUEST SERVICES LEAD I have seen and examined the pt [...] procedure, informedconsent was obtained from patient/power of attorney general/caregiver. Risks discussed included, but were not limited [...] normal. Cecum was visualized by appendiceal orifice, Wiyot's foot and ICvalve. Colon mucosa looked normal [...] PM Primary Care Physician: MATTHEW ESCAMILLA MD T SERVICES LEAD T SERVICES LEAD documented in this encounter Miscellaneous Notes * Interdisciplinary - Edwige Quintana RN - 10/16/2019 12:37 PM GUEST SERVICES LEAD Abdominal pressure applied by Loren SHAH T SERVICES LEAD documented in this encounter Plan of Treatment Scheduled Orders Name Type Priority Associated Diagnoses Orde r Schedule Pulse Oximetry, Spot PFT Routine WITH VITALS until discontinued starting 10/16/2019 documented as of this encounter Procedures Procedure Name Priority Date/Time Associated Diagnosis Comments PATHOLOGY SURGICAL Routine 10/16/2019 12 :40 PM GUEST SERVICES LEAD COLONOSCOPY 10/16/2019 12:28 PM GUEST SERVICES LEAD COLONOSCOPY-RIGHT COLON BIOPSIES, LEFT COLON BIOPSIES, HEMORRHOIDS, NORMAL COLON, NORMAL TERMINAL ILEUM Special Needs BF 10/16 documented in this encounter Results * Pathology Surgical (10/16/2019 12:40 PM GUEST SERVICES LEAD) Case Report Surgical Pathology Report ? Case: [id number] ? Authorizing Provider: ??Meri Stephens, Collected: ? 10/16/2019 12:40 PM ? Ordering Location: ? [facility] ? Received: ?10/16/2019 01:44 PM ? [facility] ? Lab Main ? Pathologist: ? Ladonna, Tania Antonio, ? MD ? Specimens: ?? A) - COLON, RIGHT COLON BIOPSIES ? B) - COLON, LEFT COLON BIOPSIES ? 10/17/2019 3:56 PM [facility] Final Diagnosis A. ??Colon, right, biopsy: ?- ??No pathologic diagnosis. B. ??Colon, left, biopsy: ?- ??No pathologic diagnosis. 10/17/2019 3:56 PM [facility] Pre-Operative Diagnosis PERIUMBILICAL PAIN 10/17/2019 3:56 PM [facility] Gross Description The specimens present in [...] cassette B1 . ??CP/dv 10/17/2019 3:56 PM [facility] Microscopic Description 6 H&E. Microscopic examination supports the diagnoses. No increased intraepithelial lymphocytes, thickening of the epithelial basement membrane, significant acute inflammation, granuloma formation, or epithelial atypia is identified. (SES/sb) 10/17/2019 3:56 PM [facility] Tissue specimen (specimen) COLON STRUCTURE / Unknown 10/16/2019 12:40 PM GUEST SERVICES LEAD 10/16/2019 1:44 PM GUEST SERVICES LEAD Tissue specimen (specimen) COLON STRUCTURE / Unknown 10/16/2019 12:47 PM GUEST SERVICES LEAD 10/16/2019 1:44 PM GUEST SERVICES LEAD us Meri Stephens MD PATHOLOGY/CYTOLOGY SHERYL CASTRO Final Result [facility] [address] [place] [address] documented in this encounter Visit Diagnoses Not on filedocumented in this encounter Administered Medications Inactive Administered Medications - up to 3 most recent administrations Medication Order MAR Action Action Date Dose Rate Site lactated ringers infusion at 20 mL/hr, Intravenous, CONTINUOUS, Starting on Wed10/16/19 at 1200, Until Wed10/16/19 at 1510 New Bag 10/16/2019 12:05 PM GUEST SERVICES LEAD 20 mL/hr 20 mL/hr ondansetron (ZOFRAN) injection 4 mg 4 mg, Intravenous, ONCE PRN, 1 dose, Starting on Wed10/16/19 at 1132, Until 10/16/19 at 1510, Nausea - 1st line, To be available to administer with physician present. For intra-procedure only. documented in this encounter Active and Recently Administered Medications Times are shown in GUEST SERVICES LEAD. Continuous Medication Order 10/14/2019 10/15/2019 10/16/2019 lactated [...] only. documented in this encounter Care Teams Diagram Clerk Relationship Specialty Start Date End Date Matthew Escamilla MD [address] [place] [address] PCP - General Pediatrics 08/24/19 documented as of this encounter
--- OUTSIDE RECORDS SUMMARY | 2024-08-19 06:19 | XMS_ITS | Encounter Summary ---
Author Organization [facility] Address [address] [place] [address] Phone Care Team Providers Care Shredder Tender Peat Name Role Phone Matthew Nesbitt MD Primary Care Provider [phone] Reason for Visit * Reason Onset Date Comments Results 09/20/2019 lab work from 09/07/19 and 09/12/19 at [facility] Encounter Details Date Type Department Care Team (Late st Contact Info) Description 09/20/2019 Telephone [facility] - Gastroenterology [facility] [address] [place] [address] Yolie Allen, SATURNINO, BAG LINER [address] [address] Results (lab work from 09/07/19 and 09/12/19 at [facility]) Social History Tobacco Use Types Packs/Day Years Used Date Smoking Tobacco: Never Smokeless Tobacco: Never Alcohol Use Standard Drinks/Week Comments Not Currently 0 (1 standard drink = 0.6 oz pur e alcohol) Sex and Gender Information Value Date Recorded Sex Assigned at Not on file Legal Sex Male 7:55 AM IMMIGRATION ASSOCIATE Gender Identity Not on file Sexual Orientation Not on file documented as of this encounter Miscellaneous Notes * Telephone Encounter - Cassidy Parada RN - 09/20/2019 2:54 PM CST Patient returned call. Patient notified of results. Patient verbalizes understanding. Letter not sent GRATION ASSOCIATE * Telephone Encounter - Cassidy Parada RN - 09/20/2019 2:38 PM CST Facility: [facility] Test: lab work Results: normal Orders: none Test on: 09/07/19 and 09/12/19 Placed in paperwork to go to [facility] on: 09/20/19 Left message on machine. Letter sent. GRATION ASSOCIATE documented in this encounter Plan of Treatment Not on file documented as of this encounter Visit Diagnoses Not on filedocumented in this encounter Care Teams Shredder Tender Peat Relationship Specialty Start Date End Date Matthew Nesbitt MD [address] [place] [address] PCP - General Pediatrics 08/24/19 documented as of this encounter
--- OUTSIDE RECORDS SUMMARY | 2024-08-19 06:19 | XMS_ITS | Encounter Summary ---
Author Organization [facility] Address [address] [place] [address] Phone Care Team Providers Care Padded Box Sewer Name Role Phone Matthew Nesbitt MD Primary Care Provider Reason for Visit * Reason Onset Date Comments Results 09/18/2019 CT Scan Encounter Details Date Type Department Care Team (Late st Contact Info) Description 09/18/2019 Telephone [facility] [address] [place] [id number] Yolie Allen, SECURITY REPRESENTATIVE, ZIPPER TRIMMER HAND [address] [address] Results (CT Scan) Social History Tobacco Use Types Packs/Day Years Used Date Smoking Tobacco: Never Smokeless Tobacco: Never Alcohol Use Standard Drinks/Week Comments Not Currently 0 (1 standard drink = 0.6 oz pur e alcohol) Sex and Gender Information Value Date Recorded Sex Assigned at Not on file Legal Sex Male 7:55 AM PRODUCE ASSISTANT Gender Identity Not on file Sexual Orientation Not on file documented as of this encounter Miscellaneous Notes * Telephone Encounter - Cassidy Parada RN - 09/18/2019 9:45 AM CST Patient returned call. Patient notified of results. Patient verbalizes understanding. Letter not sent Patient transferred to have US scheduled Patient had lab work in [place], so out office should get the results. UCE ASSISTANT * Telephone Encounter - Cassidy Parada RN - 09/18/2019 9:39 AM CST Left message on machine. Letter sent. UCE ASSISTANT * Telephone Encounter - Cassidy Parada RN - 09/18/2019 9:38 AM CST ----- Message from Yolie Allen APN, ZIPPER TRIMMER HAND sent at 09/18/2019 9:08 AM PRODUCE ASSISTANT ----- Fatty liver noted. Low fat diet. Have him get blood work I placed during OV to check lfts Possible gallbladder stones vs polyp. I would like to get abd US to further assess UCE ASSISTANT documented in this encounter Plan of Treatment Not on file documented as of this encounter Visit Diagnoses Not on filedocumented in this encounter Care Teams Padded Box Sewer Relationship Specialty Start Date End Date Matthew Nesbitt MD [address] [place], [place] [id number] PCP - General Pediatrics 08/24/19 documented as of this encounter
--- OUTSIDE RECORDS SUMMARY | 2024-08-19 06:19 | XMS_ITS | Encounter Summary ---
Author Organization [employer] Care Team Providers Care Certified Prosthetist Vice President Name Role Phone Matthew Nesbitt MD Primary Care Provider [phone]- [phone] Encounter Details Date Type Department Care Team (Latest Contact Info) Description 09/05/2019 Travel Social History Tobacco Use Types Packs/Day Years Used Date Smoking Tobacco: Never Smokeless Tobacco: Never Alcohol Use Standard Drinks/Week Comments Yes 0 (1 standard drink = 0.6 oz pur e alcohol) Sex and Gender Information Value Date Recorded Sex Assigned at Not on file Legal Sex Male 7:55 AM MEN'S LEATHER DRESS BELT MAKER Gender Identity Not on file Sexual Orientation Not on file documented as of this encounter Plan of Treatment Not on file documented as of this encounter Visit Diagnoses Not on filedocumented in this encounter Care Teams Certified Prosthetist Vice President Relationship Specialty Start Date End Date Matthew Nesbitt MD [address] [place] [address] PCP - General Pediatrics 08/24/19 documented as of this encounter
--- OUTSIDE RECORDS SUMMARY | 2024-08-19 06:19 | XMS_ITS | Encounter Summary ---
Author Organization [facility] Address [address] [place] [address] Phone Care Team Providers Care Technical Support Consultant Name Role Phone Matthew Nesbitt MD Primary Care Provider Encounter Details Date Type Department Care Team (Late st Contact Info) Description 09/28/2019 Telephone [facility] [address] [place] [phone] Zbigniew Gallardo, DO [address] [address] Social History Tobacco Use Types Packs/Day Years Used Date Smoking Tobacco: Never Smokeless Tobacco: Never Alcohol Use Standard Drinks/Week Comments Not Currently 0 (1 standard drink = 0.6 oz pur e alcohol) Sex and Gender Information Value Date Recorded Sex Assigned at Not on file Legal Sex Male 7:55 AM LOCKSTITCH ZIPPER SETTER Gender Identity Not on file Sexual Orientation Not on file documented as of this encounter Miscellaneous Notes * Telephone Encounter - Leonora Martinez CMA - 09/28/2019 9:28 AM LOCKSTITCH ZIPPER SETTER Colonoscopy prep instructions STITCH ZIPPER SETTER documented in this encounter Plan of Treatment Not on file documented as of this encounter Visit Diagnoses Not on filedocumented in this encounter Care Teams Technical Support Consultant Relationship Specialty Start Date End Date Matthew Nesbitt MD [address] [place] [address] PCP - General Pediatrics 08/24/19 documented as of this encounter
--- OUTSIDE RECORDS SUMMARY | 2024-08-19 06:19 | XMS_ITS | Encounter Summary ---
Author Organization [email or web address] Care Team Providers Care Solid Waste Collector Name Role Phone Matthew Nesbitt MD Primary Care Provider [phone] Encounter Details Date Type Department Care Team (Latest Contact Info) Description 09/15/2019 Travel Social History Tobacco Use Types Packs/Day Years Used Date Smoking Tobacco: Never Smokeless Tobacco: Never Alcohol Use Standard Drinks/Week Comments Not Currently 0 (1 standard drink = 0.6 oz pur e alcohol) Sex and Gender Information Value Date Recorded Sex Assigned at Not on file Legal Sex Male 7:55 AM TRACTOR OPERATOR HELPER Gender Identity Not on file Sexual Orientation Not on file documented as of this encounter Plan of Treatment Not on file documented as of this encounter Visit Diagnoses Not on filedocumented in this encounter Care Teams Solid Waste Collector Relationship Specialty Start Date End Date Matthew Nesbitt MD [address] [place] [address] PCP - General Pediatrics 08/24/19 documented as of this encounter
--- OUTSIDE RECORDS SUMMARY | 2024-08-19 06:19 | XMS_ITS | Encounter Summary ---
Author Organization [facility] Address [address] [place] [address] Phone Care Team Providers Care Software Implementation Specialist Name Role Phone Matthew Nesbitt MD Primary Care Provider Encounter Details Date Type Department Care Team (Late st Contact Info) Description 11/06/2019 Telephone [facility] [address] [place] [address] Meri Stephens MD [address] [place] [address] Social History Tobacco Use Types Packs/Day Years Used Date Smoking Tobacco: Never Smokeless Tobacco: Never Alcohol Use Standard Drinks/Week Comments Not Currently 0 (1 standard drink = 0.6 oz pur e alcohol) Sex and Gender Information Value Date Recorded Sex Assigned at Not on file Legal Sex Male 7:55 AM EXTRUSION DIE TEMPLATE MAKER Gender Identity Not on file Sexual Orientation Not on file documented as of this encounter Miscellaneous Notes * Telephone Encounter - Dona West RMA - 11/06/2019 9:49 AM CDT Images from the original note were not included. Meri Stephens MD Hummel, Randi M, CORRECTIONAL PROGRAM OFFICER, TOOLING ENGINEERING TECH 4 days ago There is no concern for cancer so for either on the CT scan or during colonoscopy. Just ensure the patient that there is no major finding on the CT scan. ??I will see him in the clinic on November 16. Routing comment Yolie Allen APN, TOOLING ENGINEERING TECH Meri Stephens MD 5 days ago Could [...] on filedocumented in this encounter Care Teams Software Implementation Specialist Relationship Specialty Start Date End Date Matthew Nesbitt MD [address] [place] [address] PCP - General Pediatrics 08/24/19 documented as of this encounter
--- OUTSIDE RECORDS SUMMARY | 2024-08-19 06:19 | XMS_ITS | Encounter Summary ---
Author Organization [facility] Address [address] [place] [address] Phone Care Team Providers Care Manager Drug Safety Name Role Phone Matthew Nesbitt MD Primary Care Provider Reason for Visit * Reason Onset Date Comments Results 10/18/2019 Colonoscopy Encounter Details Date Type Department Care Team (Late st Contact Info) Description 10/18/2019 Telephone [facility] [address] [place] [address] Meri Stephens MD [address] [place] [address] Results (Colonoscopy) Social History Tobacco Use Types Packs/Day Years Used Date Smoking Tobacco: Never Smokeless Tobacco: Never Alcohol Use Standard Drinks/Week Comments Not Currently 0 (1 standard drink = 0.6 oz pur e alcohol) Sex and Gender Information Value Date Recorded Sex Assigned at Not on file Legal Sex Male 7:55 AM CITY EDITOR Gender Identity Not on file Sexual Orientation Not on file documented as of this encounter Miscellaneous Notes * Telephone Encounter - Cassidy Parada RN - 10/19/2019 8:44 AM CST Patient returned call. OV was made for 11/03/19 EDITOR * Telephone Encounter - Cassidy Parada RN [...] for patient to return call to office. EDITOR * Telephone Encounter - Cassidy Parada RN - 10/18/2019 3:39 PM CST Patient notified of results. Patient verbalizes understanding. Health maintenance updated and recall placed per or note Patient would like to know what the next step is for the abdominal pain he is having. EDITOR * Telephone Encounter - Cassidy Parada RN - 10/18/2019 3:39 PM CST ----- Message from Meri Stephens MD sent at 10/17/2019 10:46 PM CITY EDITOR ----- Colon biopsies normal. EDITOR documented in this encounter Plan of Treatment Not on file documented as of this encounter Visit Diagnoses Not on filedocumented in this encounter Care Teams Manager Drug Safety Relationship Specialty Start Date End Date Matthew Nesbitt MD [address] [place] [address] PCP - General Pediatrics 08/24/19 documented as of this encounter
--- OUTSIDE RECORDS SUMMARY | 2024-08-19 06:19 | XMS_ITS | Encounter Summary ---
Author Organization [facility] Address [address] [place] [address] Phone Care Team Providers Care Commercial Credit Officer Name Role Phone Matthew Nesbitt MD Primary Care Provider [phone] Reason for Referral * Radiology Services (Routine) - Closed Specialty Diagnoses / Procedures Referred By Contac t Referred To Contact Radiology Diagnoses Abnormal CT scan, gallbladder Procedures US ABDOMEN COMPLETE Yolie Allen APRN, GEOTHERMAL INSTALLER Phone: tel: fax: Referral ID Status Reason Start Date Expiration Date Visits Re quested Visits Authorized [id number] Closed 09/18/2019 1 2 Electronically signed by Yolie lAlen, PRODUCTION CONTROL EXPEDITER, GEOTHERMAL INSTALLER at 09/18/2019 9:08 AM REGIONAL ENGINEER Encounter Details Date Type Department Care Team (Late st Contact Info) Description 09/18/2019 Telephone [facility] [address] [place] [address] Yolie Allen APRN, GEOTHERMAL INSTALLER [address] [address] Social History Tobacco Use Types Packs/Day Years Used Date Smoking Tobacco: Never Smokeless Tobacco: Never Alcohol Use Standard Drinks/Week Comments Not Currently 0 (1 standard drink = 0.6 oz pur e alcohol) Sex and Gender Information Value Date Recorded Sex Assigned at Not on file Legal Sex Male 7:55 AM REGIONAL ENGINEER Gender Identity Not on file Sexual Orientation Not on file documented as of this encounter Miscellaneous Notes * Telephone Encounter - Yolie Allen APN, CNP - 09/18/2019 9:07 AM REGIONAL ENGINEER abd us order placed ONAL ENGINEER documented in this encounter Plan of Treatment Not on file documented as of this encounter Results * US ABDOMEN COMPLETE (09/25/2019 8:58 AM REGIONAL ENGINEER) Anatomical Region Laterality Modality Abdomen N/A Ultrasound 09/25/2019 10:1 1 AM REGIONAL ENGINEER Impressions 09/25/2019 10:14 AM REGIONAL ENGINEER IMPRESSION: ?? 1. ??No evidence of an acute abnormality. 2. ??No sonographic evidence of cholelithiasis or other gallbladder pathology. 3. ??Hepatic steatosis. Narrative 09/25/2019 10:14 AM REGIONAL ENGINEER EXAM DESCRIPTION: ??US ABDOMEN COMPLETE REASON FOR [...] AM T: ??09/25/2019 10:11 AM Report ID: [id number] Reading Location: ??[id number] Procedure Note Andrea Benitez Jr., MD - [...] Andrea Benitez M.D. CH: KARMEN Report ID: [id number] Reading Location: [place] [address] IMPRESSION: 1. No evidence of an acute abnormality. 2. No sonographic evidence of cholelithiasis or other gallbladder pathology. 3. Hepatic steatosis. us Yolie Nawaf Allen PHARMACY TECHNICIAN TRAINEE, GEOTHERMAL INSTALLER IMG US ORDERABLES Final Result documented in this encounter Visit Diagnoses Diagnosis Abnormal CT scan, gallbladder- Primary Nonspecific (abnormal) findings on radiological and other examination of biliary tract Abnormal CT scan, gallbladder Nonspecific (abnormal) findings on radiological and other examination of biliary tract documented in this encounter Care Teams Commercial Credit Officer Relationship Specialty Start Date End Date Matthew Nesbitt MD [address] [place] [address] PCP - General Pediatrics 08/24/19 documented as of this encounter
--- OUTSIDE RECORDS SUMMARY | 2024-08-19 06:19 | XMS_ITS | Encounter Summary ---
Author Organization [facility] Address [address] [place] [address] Phone Care Team Providers Care Milk Collector Name Role Phone Matthew Nesbitt MD Primary Care Provider Encounter Details Date Type Department Care Team (Late st Contact Info) Description 10/02/2019 Telephone [facility] - [facility]enter[facility] [address] [place] [phone] Zbigniew Gallardo, DO [address] [address] Social History Tobacco Use Types Packs/Day Years Used Date Smoking Tobacco: Never Smokeless Tobacco: Never Alcohol Use Standard Drinks/Week Comments Not Currently 0 (1 standard drink = 0.6 oz pur e alcohol) Sex and Gender Information Value Date Recorded Sex Assigned at Not on file Legal Sex Male 7:55 AM PILOT STEAM YACHT Gender Identity Not on file Sexual Orientation Not on file documented as of this encounter Miscellaneous Notes * Telephone Encounter - Cassidy Parada RN - 10/02/2019 3:23 PM CST Opened in error T STEAM YACHT documented in this encounter Plan of Treatment Not on file documented as of this encounter Visit Diagnoses Not on filedocumented in this encounter Care Teams Milk Collector Relationship Specialty Start Date End Date Matthew Nesbitt MD [address] [place] [address] PCP - General Pediatrics 08/24/19 documented as of this encounter
--- OUTSIDE RECORDS SUMMARY | 2024-08-19 06:19 | XMS_ITS | Encounter Summary ---
Author Organization [facility] Address [address] [place] [address] Phone Care Team Providers Care Logging Equipment Mechanic Name Role Phone Matthew Nesbitt MD Primary Care Provider [phone] Reason for Referral * Radiology Services (Routine) - Closed Specialty Diagnoses / Procedures Referred By Sammyac t Referred To Contact Radiology Diagnoses Periumbilical pain Procedures CT ABDOMEN PELVIS W/ CONTRAST Yolie Allen APRN, THERMOFORMING OPERATOR Phone: tel: fax: Referral ID Status Reason Start Date Expiration Date Visits Re quested Visits Authorized [id number] Closed 09/05/2019 1 2 US AMBASSADOR Reason for Visit * Radiology Services (Routine) - Closed Specialty Diagnoses / Procedures Referred By Fatmata gutierrez Referred To Contact Radiology Diagnoses Periumbilical pain Procedures CT ABDOMEN PELVIS W/ CONTRAST Yolie Allen APRN, THERMOFORMING OPERATOR Phone: tel: fax: Referral ID Status Reason Start Date Expiration Date Visits Re quested Visits Authorized [id number] Closed 09/05/2019 1 2 Encounter Details Date Type Department Care Team (Latest Contact Info) Description 09/15/2019 12:00 PM CAMPUS AMBASSADOR - 09/15/2019 11:59 PM CAMPUS AMBASSADOR Hospital Encounter [facility] [address] [place] [id number] Yolie Allen, WELDING PANTOGRAPH MACHINE OPERATOR, THERMOFORMING OPERATOR [address] [address] Discharge Disposition: Discharged to home or Selfcare Social History Tobacco Use Types Packs/Day Years Used Date Smoking Tobacco: Never Smokeless Tobacco: Never Alcohol Use Standard Drinks/Week Comments Not Currently 0 (1 standard drink = 0.6 oz pur e alcohol) Sex and Gender Information Value Date Recorded Sex Assigned at Not on file Legal Sex Male 7:55 AM CAMPUS AMBASSADOR Gender Identity Not on file Sexual Orientation [...] PELVIS W/ CONTRAST Routine 09/15/2019 1:12 PM CAMPUS AMBASSADOR Periumbilical pain POCT CREATININE Routine 09/15/2019 1:03 PM CAMPUS AMBASSADOR documented in this encounter Results * CT ABDOMEN PELVIS W/ CONTRAST (09/15/2019 1:12 PM CAMPUS AMBASSADOR) Anatomical Region Laterality Modality Abdomen N/A Computed Tomogra phy 09/16/2019 8:17 AM CAMPUS AMBASSADOR Impressions 09/16/2019 8:20 AM CAMPUS AMBASSADOR IMPRESSION: ?? 1. ??No evidence of an acute abnormality of the abdomen and pelvis. 2. ??Hepatic steatosis. 3. ??Possible small gallstone or biliary sludge, or small gallbladder polyp. ??This could be correlated with ultrasound if needed for further assessment. Narrative 09/16/2019 8:20 AM CAMPUS AMBASSADOR EXAM DESCRIPTION: ??CT ABDOMEN PELVIS W/ CONTRAST [...] AM T: ??09/16/2019 8:17 AM Report ID: [id number] Reading Location: ??[id number] Procedure Note Andrea Benitez Jr., MD - [...] Andrea Benitez M.D. CH: KARMEN Report ID: [id number] Reading Location: [place] [address] IMPRESSION: 1. No evidence of an acute abnormality of the abdomen and pelvis. 2. Hepatic steatosis. 3. Possible small gallstone or biliary sludge, or small gallbladder polyp. This could be correlated with ultrasound if needed for further assessment. us Yolie Allen WELDING PANTOGRAPH MACHINE OPERATOR, THERMOFORMING OPERATOR IMG CT ORDERABLES Final Result * POCT Creatinine (09/15/2019 1:03 PM CAMPUS AMBASSADOR) CREATININE - POCT 0.9 0.6 - 1.3 mg/dL 09/15/2019 1:05 PM CAMPUS AMBASSADOR [facility] Blood specimen (specimen) 09/15/2019 1:03 PM CAMPUS AMBASSADOR 09/15/2019 1:05 PM CAMPUS AMBASSADOR us Yolie Allen WELDING PANTOGRAPH MACHINE OPERATOR, THERMOFORMING OPERATOR POINT OF CARE BROOKE SAM Final Result [facility] [address] [facility] [place] [address] documented in this encounter Visit Diagnoses Diagnosis Periumbilical pain Abdominal pain, periumbilic documented in this encounter Administered Medications Inactive Administered Medications - up to 3 most recent administrations Medication Order MAR Action Action Date Dose Rate Site diatrizoate meglumine-sodium (GASTROGRAFIN) 66-10 % solution 15 mL 15 mL, Oral, ONCE, 1 dose, On Wed09/15/19 at 1300 Given 09/15/2019 12:09 PM CAMPUS AMBASSADOR 15 mL iopamidol (ISOVUE-370) 76 % injection 117 mL 117 mL, Intravenous, ONCE, 1 dose, On Wed09/15/19 at 1300 Given 09/15/2019 1:09 PM CAMPUS AMBASSADOR 117 mL documented in this encounter Care Teams Logging Equipment Mechanic Relationship Specialty Start Date End Date Matthew Nesbitt MD [address] [place], [place] [id number] PCP - General Pediatrics 08/24/19 documented as of this encounter
--- OUTSIDE RECORDS SUMMARY | 2024-08-19 06:19 | XMS_ITS | Encounter Summary ---
Author Organization [employer] Care Team Providers Care Senior Network Security Engineer Name Role Phone Matthew Nesbitt MD Primary Care Provider [phone] Encounter Details Date Type Department Care Team (Latest Contact Info) Description 11/15/2019 Travel Social History Tobacco Use Types Packs/Day Years Used Date Smoking Tobacco: Never Smokeless Tobacco: Never Alcohol Use Standard Drinks/Week Comments Not Currently 0 (1 standard drink = 0.6 oz pur e alcohol) Sex and Gender Information Value Date Recorded Sex Assigned at Not on file Legal Sex Male 7:55 AM CONCRETE WALL GRINDER OPERATOR Gender Identity Not on file Sexual [...] on filedocumented in this encounter Care Teams Senior Network Security Engineer Relationship Specialty Start Date End Date Matthew Nesbitt MD [address] [place] [address] PCP - General Pediatrics 08/24/19 documented as of this encounter
--- OUTSIDE RECORDS SUMMARY | 2024-08-19 06:19 | XMS_ITS | Encounter Summary ---
Author Organization [facility] Address [address] [place] [address] Phone Care Team Providers Care Production Line Operator Name Role Phone Matthew Nesbitt MD Primary Care Provider [phone] Reason for Referral * Other (Routine) - Closed Specialty Diagnoses / Procedures Referred By Contac t Referred To Contact Gastroenterology Diagnoses Periumbilical pain Procedures GASTRO PROCEDURE Yolie Allen APRN, CNP Phone: tel: fax: Meri Stephens MD Phone: tel: fax: Referral ID Status Reason Start Date Expiration Date Visits Re quested Visits Authorized [id number] Closed 09/05/2019 1 1 CUSTOMER SERVICE * Radiology Services (Routine) - Closed Specialty Diagnoses / Procedures Referred By Contac t Referred To Contact Radiology Diagnoses Periumbilical pain Procedures CT ABDOMEN PELVIS W/ CONTRAST Yolie Allen APRN, CNP Phone: tel: fax: Referral ID Status Reason Start Date Expiration Date Visits Re quested Visits Authorized [id number] Closed 09/05/2019 1 2 CUSTOMER SERVICE Reason for Visit * Reason Comments New Patient Abdominal pain * Consult, Test & Initiate Treatment (Less Than 4 Weeks) - Closed Specialty Diagnoses / Procedures Referred By Contact Referred To Contact Gastroenterology Diagnoses Abdominal pain Procedures OFFICE/OUTPT VISIT,ZOILA HERNANDEZ III, Bryan C, MD [address] [place] [address] Phone: tel: fax: [facility] Gastroenterology [facility] [address] [place] [address] Phone: tel: fax: Referral ID Status Reason Start Date Expiration Date Visits Re quested Visits Authorized [id number] Closed 1 1 Encounter Details Date Type Department Care Team (Latest Contact Info) Description 09/05/2019 1:30 PM VP CUSTOMER SERVICE Office Visit [facility] Gastroenterology [facility] [address] [place] [address] Yolie Allen, PRODUCT LINE MANAGER, WATER PLUMBER [address] [address] Periumbilical pain (Primary Dx); Elevated ALT measurement [...] on file Legal Sex Male 7:55 AM VP CUSTOMER SERVICE Gender Identity Not on file Sexual Orientation Not on file documented as of this encounter Last Filed Vital Signs Vital Sign Reading Time Taken Comments Blood Pressure 166/90 09/05/2019 1:13 PM VP CUSTOMER SERVICE Pulse 95 09/05/2019 1:13 PM VP CUSTOMER SERVICE Temperature 36.6 ??C (97.9 ??F) 09/05/2019 1:13 PM CS T Respiratory Rate 16 09/05/2019 1:13 PM VP CUSTOMER SERVICE Oxygen Saturation 96% 09/05/2019 1:13 PM VP CUSTOMER SERVICE Inhaled Oxygen Concentration - - Weight 105.2 kg (232 lb) 09/05/2019 1:13 PM VP CUSTOMER SERVICE Height 167.6 cm (5' 6 ) 09/05/2019 1:13 PM VP CUSTOMER SERVICE Body Mass Index 37.45 09/05/2019 1:13 PM VP CUSTOMER SERVICE documented in this encounter Progress Notes * Yolie Allen, MARISA, WATER PLUMBER - 09/05/2019 1:30 PM CST [facility] GASTROENTEROLOGY CONSULT/H&P NAME: Tam Mari DATE 1980 [...] this. Denies any nausea or vomiting. IJN: [id number] ALLERGIES: No Known Allergies MEDICATIONS (Not in [...] file Gets together: Not on file Attends scientology service: Not on file Active member of [...] additions, deletions and changes made as appropriate. CUSTOMER SERVICE CUSTOMER SERVICE documented in this encounter Plan of Treatment Scheduled Orders Name Type Priority Associated Diagnoses Orde r Schedule HEPATIC FUNCTION PANEL Lab Routine Elevated ALT measurement Expected: 10/04/2019, Expires: 03/05/2020 GASTRO PROCEDURE Procedures Routine Periumbilical pain Expected: 09/05/2019 (Approximate), Expires: 11/05/2019 documented as of this encounter Results * CT ABDOMEN PELVIS W/ CONTRAST (09/15/2019 1:12 PM VP CUSTOMER SERVICE) Anatomical Region Laterality Modality Abdomen N/A Computed Tomogra phy 09/16/2019 8:17 AM VP CUSTOMER SERVICE Impressions 09/16/2019 8:20 AM VP CUSTOMER SERVICE IMPRESSION: ?? 1. ??No evidence of an acute abnormality of the abdomen and pelvis. 2. ??Hepatic steatosis. 3. ??Possible small gallstone or biliary sludge, or small gallbladder polyp. ??This could be correlated with ultrasound if needed for further assessment. Narrative 09/16/2019 8:20 AM VP CUSTOMER SERVICE EXAM DESCRIPTION: ??CT ABDOMEN PELVIS W/ CONTRAST [...] AM T: ??09/16/2019 8:17 AM Report ID: [id number] Reading Location: ??[id number] Procedure Note Andrea Benitez Jr., MD - [...] Andrea Benitez M.D. CH: KARMEN Report ID: [id number] Reading Location: [id number] IMPRESSION: 1. No evidence of an acute [...] periumbilic documented in this encounter Care Teams Production Line Operator Relationship Specialty Start Date End Date Matthew Nesbitt MD [address], [place] [id number] PCP - General Pediatrics 08/24/19 documented as of this encounter
--- OUTSIDE RECORDS SUMMARY | 2024-08-19 06:19 | XMS_ITS | Encounter Summary ---
Author Organization [facility] Address [address] [place] [address] Phone Care Team Providers Care Shift Boss Name Role Phone Matthew Nesbitt MD Primary Care Provider Encounter Details Date Type Department Care Team (Late st Contact Info) Description 09/05/2019 Telephone [facility] - [facility]enter[facility] [address] [place] [phone] Zbigniew Gallardo, DO [address] [address] Social History Tobacco Use Types Packs/Day Years Used Date Smoking Tobacco: Never Smokeless Tobacco: Never Alcohol Use Standard Drinks/Week Comments Yes 0 (1 standard drink = 0.6 oz pur e alcohol) Sex and Gender Information Value Date Recorded Sex Assigned at Not on file Legal Sex Male 7:55 AM EDITOR FARM JOURNAL Gender Identity Not on file Sexual Orientation Not on file documented as of this encounter Miscellaneous Notes * Telephone Encounter - Leonora Martinez CMA - 09/05/2019 1:39 PM EDITOR FARM JOURNAL Prep colonoscopy prep OR FARM JOURNAL documented in this encounter Plan of Treatment Not on file documented as of this encounter Visit Diagnoses Not on filedocumented in this encounter Care Teams Shift Boss Relationship Specialty Start Date End Date Matthew Nesbitt MD [address] [place] [address] PCP - General Pediatrics 08/24/19 documented as of this encounter
--- OUTSIDE RECORDS SUMMARY | 2024-08-19 06:19 | XMS_ITS | Encounter Summary ---
Author Organization [facility] Address [address] [place] [address] Phone Care Team Providers Care Asw/Asuw Tactical Air Controller Name Role Phone Matthew Nesbitt MD Primary Care Provider Encounter Details Date Type Department Care Team (Late st Contact Info) Description 11/01/2019 Telephone [facility] - Gastroenterology [facility] [address] [place] [address] Yolie Aleln, RADIOLOGIC THERAPIST, HAZARDOUS MATERIALS TANKER DRIVER [address] [address] Social History Tobacco Use Types Packs/Day Years Used Date Smoking Tobacco: Never Smokeless Tobacco: Never Alcohol Use Standard Drinks/Week Comments Not Currently 0 (1 standard drink = 0.6 oz pur e alcohol) Sex and Gender Information Value Date Recorded Sex Assigned at Not on file Legal Sex Male 7:55 AM SPRING FORGER Gender Identity Not on file Sexual Orientation [...] and not change in diet. please advise NG FORGER documented in this encounter Plan of Treatment Not on file documented as of this encounter Visit Diagnoses Not on filedocumented in this encounter Care Teams Asw/Asuw Tactical Air Controller Relationship Specialty Start Date End Date Matthew Nesbitt MD [address] [place] [id number] PCP - General Pediatrics 08/24/19 documented as of this encounter
--- OUTSIDE RECORDS SUMMARY | 2024-08-19 06:19 | XMS_ITS | Encounter Summary ---
Author Organization [facility] Address [address] [place] [address] Phone Care Team Providers Care Custom Marine Canvas Fabricator Name Role Phone Matthew Nesbitt MD Primary Care Provider [phone] Reason for Referral * Radiology Services (Routine) - Closed Specialty Diagnoses / Procedures Referred By Fatmata t Referred To Contact Radiology Diagnoses Abnormal CT scan, gallbladder Procedures US ABDOMEN COMPLETE Yolie Allen APRN, DIRECTOR STAFFING Phone: tel: fax: Referral ID Status Reason Start Date Expiration Date Visits Re quested Visits Authorized [id number] Closed 09/18/2019 1 2 E IDENTIFIER Reason for Visit * Radiology Services (Routine) - Closed Specialty Diagnoses / Procedures Referred By Fatmata gutierrez Referred To Contact Radiology Diagnoses Abnormal CT scan, gallbladder Procedures US ABDOMEN COMPLETE Yolie Allen APRN, DIRECTOR STAFFING Phone: tel: fax: Referral ID Status Reason Start Date Expiration Date Visits Re quested Visits Authorized [id number] Closed 09/18/2019 1 2 Encounter Details Date Type Department Care Team (Latest Contact Info) Description 09/25/2019 8:40 AM HORSE IDENTIFIER - 09/25/2019 11:59 PM HORSE IDENTIFIER [facility] [address] [place] [address] Yolie Allen APRN, DIRECTOR STAFFING [address] [address] Discharge Disposition: Discharged to home or Selfcare Social History Tobacco Use Types Packs/Day Years Used Date Smoking Tobacco: Never Smokeless Tobacco: Never Alcohol Use Standard Drinks/Week Comments Not Currently 0 (1 standard drink = 0.6 oz pur e alcohol) Sex and Gender Information Value Date Recorded Sex Assigned at Not on file Legal Sex Male 7:55 AM HORSE IDENTIFIER Gender Identity Not on file Sexual Orientation [...] ABDOMEN COMPLETE Routine 09/25/2019 8 :58 AM HORSE IDENTIFIER Abnormal CT scan, gallbladder documented in this encounter Results * US ABDOMEN COMPLETE (09/25/2019 8:58 AM HORSE IDENTIFIER) Anatomical Region Laterality Modality Abdomen N/A Ultrasound 09/25/2019 10:1 1 AM HORSE IDENTIFIER Impressions 09/25/2019 10:14 AM HORSE IDENTIFIER IMPRESSION: ?? 1. ??No evidence of an acute abnormality. 2. ??No sonographic evidence of cholelithiasis or other gallbladder pathology. 3. ??Hepatic steatosis. Narrative 09/25/2019 10:14 AM HORSE IDENTIFIER EXAM DESCRIPTION: ??US ABDOMEN COMPLETE REASON FOR [...] AM T: ??09/25/2019 10:11 AM Report ID: [id number] Reading Location: ??[id number] Procedure Note Andrea Benitez Jr., MD - [...] Andrea Benitez M.D. CH: KARMEN Report ID: [id number] Reading Location: [place] [address] IMPRESSION: 1. No evidence of an acute abnormality. 2. No sonographic evidence of cholelithiasis or other gallbladder pathology. 3. Hepatic steatosis. Yolie Allen APRN, DIRECTOR STAFFING IMG US ORDERABLES Final Result documented in this encounter Visit Diagnoses Diagnosis Abnormal CT scan, gallbladder Nonspecific (abnormal) findings on radiological and other examination of biliary tract documented in this encounter Care Teams Custom Marine Canvas Fabricator Relationship Specialty Start Date End Date Matthew Nesbitt MD [address] [place] [address] PCP - General Pediatrics 08/24/19 documented as of this encounter
--- OUTSIDE RECORDS SUMMARY | 2024-08-19 06:19 | XMS_ITS | Encounter Summary ---
Author Organization [facility] Address [address] [place] [address] Phone Care Team Providers Care Board Setter Name Role Phone Matthew Escamilla MD Primary Care Provider [phone] Reason for Visit * Auth/Cert Specialty Diagnoses / Procedures Referred By Contac t Referred To Contact Diagnoses PERIUMBILICAL PAIN Procedures COLONOSCOPY Referral ID Status Reason Start Date Expiration Date Visits Re quested Visits Authorized [id number] 1 1 Encounter Details Date Type Department Care Team (Late st Contact Info) Description 10/16/2019 12:00 PM BAKERY CHEF - 10/16/2019 12:30 PM BAKERY CHEF [facility] Periop [address] [place] [address] Meri Stephens MD [address] [place] [address] COLONOSCOPY-RIGHT COLON BIOPSIES, LEFT COLON BIOPSIES, HEMORRHOIDS, NORMAL COLON, NORMAL TERMINAL ILEUM Surgery Details Date/Time Status Location OR Service Patient Class Case Class Case Type Trauma Case? 10/16/2019 12:00 PM Posted [facility] GI 01 Gastroenterology [facility] Ambulatory Surgery Panel 1 Procedure LRB Anes [...] on file Legal Sex Male 7:55 AM BAKERY CHEF Gender Identity Not on file Sexual Orientation Not on file documented as of this encounter Last Filed Vital Signs Vital Sign Reading Time Taken Comments Blood Pressure 143/101 10/16/2019 11:46 AM BAKERY CHEF Pulse 118 10/16/2019 11:46 AM BAKERY CHEF pt very nervous Temperature 36 ??C (96.8 ??F) 10/16/2019 11: 46 AM BAKERY CHEF Respiratory Rate 20 10/16/2019 11:4 6 AM BAKERY CHEF Oxygen Saturation - - Inhaled Oxygen Concentration - - Weight 102.1 kg (225 lb) 09/28/2019 3:00 PM BAKERY CHEF Height 167.6 cm (5' 6 ) 09/28/2019 3:00 PM BAKERY CHEF Body Mass Index 36.32 09/28/2019 3:00 PM BAKERY CHEF documented in this encounter Discharge Instructions * Discharge Instructions* Janel Mckinley RN - 10/16/2019 1:03 PM BAKERY CHEF YOU HAD A COLONOSCOPY TODAY. DR. MERI STEPHENS FOUND: BIOPSY/BIOPSIES TAKEN. CALL OFFICE FOR BIOPSY RESULTS IN 2 WEEKS AT [phone] HEMORRHOIDS Recommendations: -Repeat colonoscopy in 10 years [...] WORK, UNLESS INSTRUCTED OTHERWISE. Call doctor's office ([phone]) or go to Emergency room for: Difficulty Breathing, Headache Or Visual Disturbances Persistent Dizziness Or Light-Headedness Persistent Nausea and Vomiting Temperature greater then 100.0 Significant abdominal pain, chest pain, or bleeding. Here at [facility] we strive to provide excellent care to [...] envelope is provided. THANK YOU FOR CHOOSING [facility]. RY CHEF documented in this encounter Medications at Time of Discharge dicyclomine (BENTYL) 20 MG Tablet Take 1 Tab by mouth every 6 hours. 30 Tab 09/05/2019 losartan (COZAAR) 25 MG Tablet nightly. 08/17/2019 documented as of this encounter H&P Notes * Yolie Allen, CLERK SPECIALIST, MILITARY PROFESSIONAL - 10/16/2019 11:48 AM CST [facility] CONSULT/H&P NAME: Tam Mari DATE [...] file Gets together: Not on file Attends synagogue service: Not on file Active member of [...] Meri Stephens MD at 10/16/2019 12:01 PM BAKERY CHEF RY CHEF RY CHEF Associated attestation - Meri Stephens MD - 10/16/2019 12:01 PM BAKERY CHEF I have seen and examined the pt [...] procedure, informedconsent was obtained from patient/power of deputy commonwealth's attorney/caregiver. Risks discussed included, but were not [...] normal. Cecum was visualized by appendiceal orifice, [place]'s foot and ICvalve. Colon mucosa looked normal [...] PM Primary Care Physician: MATTHEW ESCAMILLA MD RY CHEF RY CHEF documented in this encounter Miscellaneous Notes * Interdisciplinary - Edwige Quintana RN - 10/16/2019 12:37 PM BAKERY CHEF Abdominal pressure applied by Loren SHAH RY CHEF documented in this encounter Plan of Treatment Scheduled Orders Name Type Priority Associated Diagnoses Orde r Schedule Pulse Oximetry, Spot PFT Routine WITH VITALS until discontinued starting 10/16/2019 documented as of this encounter Procedures Procedure Name Priority Date/Time Associated Diagnosis Comments PATHOLOGY SURGICAL Routine 10/16/2019 12 :40 PM BAKERY CHEF COLONOSCOPY 10/16/2019 12:28 PM BAKERY CHEF COLONOSCOPY-RIGHT COLON BIOPSIES, LEFT COLON BIOPSIES, HEMORRHOIDS, NORMAL COLON, NORMAL TERMINAL ILEUM Special Needs BF 10/16 documented in this encounter Results * Pathology Surgical (10/16/2019 12:40 PM BAKERY CHEF) Case Report Surgical Pathology Report ? Case: [id number] ? Authorizing Provider: ??Meri Stephens MD Collected: ? 10/16/2019 12:40 PM ? Ordering Location: ? [facility] ? Received: ?10/16/2019 01:44 PM ? [facility] Gi ? Lab Main ? Pathologist: ? Tania Dougherty, ? MD ? Specimens: ?? A) - COLON, RIGHT COLON BIOPSIES ? B) - COLON, LEFT COLON BIOPSIES ? 10/17/2019 3:56 PM BAKERY CHEF [facility] Final Diagnosis A. ??Colon, right, biopsy: ?- ??No pathologic diagnosis. B. ??Colon, left, biopsy: ?- ??No pathologic diagnosis. 10/17/2019 3:56 PM BAKERY CHEF [facility] Pre-Operative Diagnosis PERIUMBILICAL PAIN 10/17/2019 3:56 PM BAKERY CHEF [facility] Gross Description The specimens present [...] cassette B1 . ??CP/dv 10/17/2019 3:56 PM BAKERY CHEF [facility] Microscopic Description 6 H&E. Microscopic examination supports the diagnoses. No increased intraepithelial lymphocytes, thickening of the epithelial basement membrane, significant acute inflammation, granuloma formation, or epithelial atypia is identified. (SES/sb) 10/17/2019 3:56 PM BAKERY CHEF [facility] Tissue specimen (specimen) COLON STRUCTURE / Unknown 10/16/2019 12:40 PM BAKERY CHEF 10/16/2019 1:44 PM BAKERY CHEF Tissue specimen (specimen) COLON STRUCTURE / Unknown 10/16/2019 12:47 PM BAKERY CHEF 10/16/2019 1:44 PM BAKERY CHEF Meri Stephens MD PATHOLOGY/CYTOLOGY SHERYL CASTRO Final Result [facility] [address] [place] [address] documented in this encounter Visit Diagnoses Not on filedocumented in this encounter Administered Medications Inactive Administered Medications - up to 3 most recent administrations Medication Order MAR Action Action Date Dose Rate Site lactated ringers infusion at 20 mL/hr, Intravenous, CONTINUOUS, Starting on Wed10/16/19 at 1200, Until Wed10/16/19 at 1510 New Bag 10/16/2019 12:05 PM BAKERY CHEF 20 mL/hr 20 mL/hr ondansetron (ZOFRAN) injection 4 mg 4 mg, Intravenous, ONCE PRN, 1 dose, Starting on Wed10/16/19 at 1132, Until Wed10/16/19 at 1510, Nausea - 1st line, To be available to administer with physician present. For intra-procedure only. documented in this encounter Active and Recently Administered Medications Times are shown in BAKERY CHEF. Continuous Medication Order 10/14/2019 10/15/2019 10/16/2019 lactated [...] only. documented in this encounter Care Teams Board Setter Relationship Specialty Start Date End Date Matthew Escamilla MD [address] [place] [address] PCP - General Pediatrics 08/24/19 documented as of this encounter
--- OUTSIDE RECORDS SUMMARY | 2024-08-19 06:19 | XMS_ITS | Clinical Summary ---
Author Organization [facility] Address [address] [place] [address] Phone Care Team Providers Care Industrial Illuminating Engineer Name Role Phone Matthew Nesbitt MD Primary Care Provider [phone] Allergies No known active allergies Medications losartan [...] on file Legal Sex Male 7:55 AM WILL CALL CLERK Gender Identity Not on file Sexual Orientation Not on file Last Filed Vital Signs Vital Sign Reading Time Taken Comments Blood Pressure 126/95 10/16/2019 12:59 PM WILL CALL CLERK Pulse 106 10/16/2019 12:59 PM WILL CALL CLERK Temperature 36 ??C (96.8 ??F) 10/16/2019 12:59 PM WILL CALL CLERK Respiratory Rate 14 10/16/2019 12:59 PM WILL CALL CLERK Oxygen Saturation 100% 10/16/2019 12:59 PM WILL CALL CLERK Inhaled Oxygen Concentration - - Weight 102.1 kg (225 lb) 09/28/2019 3:00 PM WILL CALL CLERK Height 167.6 cm (5' 6 ) 09/28/2019 3:00 PM WILL CALL CLERK Body Mass Index 36.32 09/28/2019 3:00 PM WILL CALL CLERK Plan of Treatment Health Maintenance Due Date [...] (AHP) (09/07/2019) Blood specimen (specimen) Yolie Allen ORDER BUILDER, CUSTOMER SUPPORT SPECIALIST HEMATOLOGY ORDERA BLES Final Result from Last 3 Months or Most Recently Relevant to Health Maintenance Insurance [place]ID [place] Care Teams Industrial Illuminating Engineer Relationship Specialty Start Date End Date Matthew Nesbitt MD [address] [place] [id number] PCP - General Pediatrics 08/24/19
--- OUTSIDE RECORDS SUMMARY | 2024-08-19 06:19 | XMS_ITS | Encounter Summary ---
Author Organization [facility] Address [address] [place] [address] Phone Care Team Providers Care Community Marketing Coordinator Name Role Phone Matthew Nesbitt MD Primary Care Provider Encounter Details Date Type Department Care Team (Late st Contact Info) Description 10/10/2019 Telephone [facility] - Gastroenterology [facility] [address] [place] [address] Meri Stephens MD [address] [place] [address] Social History Tobacco Use Types Packs/Day Years Used Date Smoking Tobacco: Never Smokeless Tobacco: Never Alcohol Use Standard Drinks/Week Comments Not Currently 0 (1 standard drink = 0.6 oz pur e alcohol) Sex and Gender Information Value Date Recorded Sex Assigned at Not on file 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 R AIR TRAFFIC CONTROL SPECIALIST * Telephone Encounter - Cassidy Parada RN - 10/10/2019 10:24 AM CST Patient left voicemail asking if he could have the colonoscopy that is schedule on 10/16/19 WITHOUT sedation. Patient asking if there is a reason this is not recommended. Patient asked to leave a detailed voicemail when our office calls back since he is at work. R AIR TRAFFIC CONTROL SPECIALIST documented in this encounter Plan of Treatment Not on file documented as of this encounter Visit Diagnoses Not on filedocumented in this encounter Care Teams Community Marketing Coordinator Relationship Specialty Start Date End Date Matthew Nesbitt MD [address] [place], [place] [id number] PCP - General Pediatrics 08/24/19 documented as of this encounter
--- OUTSIDE RECORDS SUMMARY | 2024-08-19 06:19 | XMS_ITS | Encounter Summary ---
Author Organization [employer] Care Team Providers Care Slat Basket Maker Name Role Phone Matthew Nesbitt MD Primary Care Provider [phone] Encounter Details Date Type Department Care Team (Latest Contact Info) Description 10/16/2019 Travel Social History Tobacco Use Types Packs/Day Years Used Date Smoking Tobacco: Never Smokeless Tobacco: Never Alcohol Use Standard Drinks/Week Comments Not Currently 0 (1 standard drink = 0.6 oz pur e alcohol) Sex and Gender Information Value Date Recorded Sex Assigned at Not on file Legal Sex Male 7:55 AM BUSINESS PROCESS COORDINATOR Gender Identity Not on file Sexual Orientation Not on file documented as of this encounter Plan of Treatment Not on file documented as of this encounter Visit Diagnoses Not on filedocumented in this encounter Care Teams Slat Basket Maker Relationship Specialty Start Date End Date Matthew Nesbitt MD [address] [place] [address] PCP - General Pediatrics 08/24/19 documented as of this encounter
--- OUTSIDE RECORDS SUMMARY | 2024-08-19 06:19 | XMS_ITS | Encounter Summary ---
Author Organization [facility] Address [address] [place] [address] Phone Care Team Providers Care Pvc Monitor Name Role Phone Matthew Nesbitt MD Primary Care Provider Reason for Visit * Reason Onset Date Comments Appointment 11/15/2019 11/17/19 Encounter Details Date Type Department Care Team (Late st Contact Info) Description 11/15/2019 Telephone [facility] - Gastroenterology [facility] [address] [place] [address] Meri Stephens MD [address] [place] [address] Appointment (11/17/19) Social History Tobacco Use Types Packs/Day Years Used Date Smoking Tobacco: Never Smokeless Tobacco: Never Alcohol Use Standard Drinks/Week Comments Not Currently 0 (1 standard drink = 0.6 oz pur e alcohol) Sex and Gender Information Value Date Recorded Sex Assigned at Not on file 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
--- OUTSIDE RECORDS SUMMARY | 2024-08-19 06:19 | XMS_ITS | Encounter Summary ---
Author Organization [facility] Address [address] [place] [address] Phone Care Team Providers Care Staff Submarine Warfare Officer Name Role Phone Matthew Nesbitt MD Primary Care Provider [phone] Reason for Visit * Reason Onset Date Comments Results 09/26/2019 US of abdomen Encounter Details Date Type Department Care Team (Late st Contact Info) Description 09/26/2019 Telephone [facility] - Gastroenterology [facility] [address] [place] [address] Yolie Allen, ICE CREAM SCOOPER, CLINICAL SOCIAL WORK AIDE [address] [address] Results (US of abdomen) Social History Tobacco Use Types Packs/Day Years Used Date Smoking Tobacco: Never Smokeless Tobacco: Never Alcohol Use Standard Drinks/Week Comments Not Currently 0 (1 standard drink = 0.6 oz pur e alcohol) Sex and Gender Information Value Date Recorded Sex Assigned at Not on file Legal Sex Male 7:55 AM CUFFER Gender Identity Not on file Sexual Orientation Not on file documented as of this encounter Miscellaneous Notes * Telephone Encounter - Cassidy Parada RN - 09/26/2019 1:23 PM CST Patient notified of results. Patient verbalizes understanding. ER * Telephone Encounter - Cassidy Parada RN - 09/26/2019 1:23 PM CST ----- Message from Yolie Allen APN, CLINICAL SOCIAL WORK AIDE sent at 09/25/2019 10:22 AM CUFFER ----- Fatty liver. Nothing noted in gallbladder ER documented in this encounter Plan of Treatment Not on file documented as of this encounter Visit Diagnoses Not on filedocumented in this encounter Care Teams Staff Submarine Warfare Officer Relationship Specialty Start Date End Date Matthew Nesbitt MD [address] [place], [place] [id number] PCP - General Pediatrics 08/24/19 documented as of this encounter
--- OUTSIDE RECORDS SUMMARY | 2024-08-19 06:19 | XMS_ITS | Encounter Summary ---
Author Organization [facility] Address [address] [place] [address] Phone Care Team Providers Care Grip Name Role Phone Matthew Nesbitt MD Primary Care Provider [phone] Encounter Details Date Type Department Care Team (Late st Contact Info) Description 09/07/2019 Telephone [facility] - Gastroenterology [facility] [address] [place] [address] Zbigniew Gallardo, DO [address] [address] Social History Tobacco Use Types Packs/Day Years Used Date Smoking Tobacco: Never Smokeless Tobacco: Never Alcohol Use Standard Drinks/Week Comments Not Currently 0 (1 standard drink = 0.6 oz pur e alcohol) Sex and Gender Information Value Date Recorded Sex Assigned at Not on file Legal Sex Male 7:55 AM SANITARIAN AIDE Gender Identity Not on file Sexual Orientation Not on file documented as of this encounter Miscellaneous Notes * Telephone Encounter - Briseyda Lieberman - 09/07/2019 9:39 AM CST Labs faxed to pcp per pts request TARIAN AIDE documented in this encounter Plan of Treatment Not on file documented as of this encounter Visit Diagnoses Not on filedocumented in this encounter Care Teams Grip Relationship Specialty Start Date End Date Matthew Nesbitt MD [address] [place] [address] PCP - General Pediatrics 08/24/19 documented as of this encounter
--- OUTSIDE RECORDS SUMMARY | 2024-08-19 06:19 | XMS_ITS | Encounter Summary ---
Author Organization [facility] Address [address] [place] [address] Phone Care Team Providers Care Plant Attendant Or Assistant Operator Name Role Phone Matthew Nesbitt MD Primary Care Provider Encounter Details Date Type Department Care Team (Late st Contact Info) Description 09/26/2019 Telephone [facility] - Gastroenter[facility] [address] [place] [address] Yolie Allen APRN, LEAF CONDITIONER [address] [address] Social History Tobacco Use Types Packs/Day Years Used Date Smoking Tobacco: Never Smokeless Tobacco: Never Alcohol Use Standard Drinks/Week Comments Not Currently 0 (1 standard drink = 0.6 oz pur e alcohol) Sex and Gender Information Value Date Recorded Sex Assigned at Not on file Legal Sex Male 7:55 AM MOTOR GRADER OPERATOR Gender Identity Not on file Sexual Orientation Not on file documented as of this encounter Miscellaneous Notes * Telephone Encounter - Cassidy Parada RN - 09/26/2019 1:24 PM CST Patient notified of results. Patient verbalizes understanding. R GRADER OPERATOR * Telephone Encounter - Yolie Allen, MEDICAL NURSE, LEAF CONDITIONER - 09/26/2019 1:12 PM MOTOR GRADER OPERATOR LFT and hepatitis serology negative Continue low fat diet Recheck LFT 6 months R GRADER OPERATOR documented in this encounter Plan of Treatment Scheduled Orders Name Type Priority Associated Diagnoses Orde r Schedule HEPATIC FUNCTION PANEL Lab Routine Fatty liver Expected: 03/26/2020, Expires: 09/26/2020 documented as of this encounter Visit Diagnoses Diagnosis Fatty liver- Primary Other chronic nonalcoholic liver disease documented in this encounter Care Teams Plant Attendant Or Assistant Operator Relationship Specialty Start Date End Date Matthew Nesbitt MD [address] [place] [address] PCP - General Pediatrics 08/24/19 documented as of this encounter
== END 2024-08-13 22:49 | disposition home or self-care (01) ==
PROVIDERS: Emergency Provider Emergency Medicine; PCP Family Medicine
DX: K40.90 Unilateral inguinal hernia, without obstruction or gangrene, not specified as recurrent (principal); I10 Essential (primary) hypertension
CPT/HCPCS: 99281

== ENCOUNTER 2024-10-19 07:50 | Outpatient (CLI) | payer OTHER, SELFPAY ==
--- OUTSIDE RECORDS SUMMARY | 2024-10-19 07:59 | XMS_ITS | Clinical Summary ---
Author Organization [facility] Address [address] [place] [address] Phone Care Team Providers Care Metal And Plastic Heater Name Role Phone Matthew Nesbitt MD Primary Care Provider [phone] Allergies No known active allergies Medications losartan [...] on file Legal Sex Male 7:55 AM WILDERNESS GUIDE Gender Identity Not on file Sexual Orientation Not on file Last Filed Vital Signs Vital Sign Reading Time Taken Comments Blood Pressure 126/95 10/16/2019 12:59 PM WILDERNESS GUIDE Pulse 106 10/16/2019 12:59 PM WILDERNESS GUIDE Temperature 36 C (96.8 F) 10/16/2019 12:59 PM WILDERNESS GUIDE Respiratory Rate 14 10/16/2019 12:59 PM WILDERNESS GUIDE Oxygen Saturation 100% 10/16/2019 12:59 PM WILDERNESS GUIDE Inhaled Oxygen Concentration - - Weight 102.1 kg (225 lb) 09/28/2019 3:00 PM WILDERNESS GUIDE Height 167.6 cm (5' 6 ) 09/28/2019 3:00 PM WILDERNESS GUIDE Body Mass Index 36.32 09/28/2019 3:00 PM WILDERNESS GUIDE Plan of Treatment Health Maintenance Due Date [...] (AHP) (09/07/2019) Blood specimen (specimen) Yolie Allen RECREATION ADVISER, FORMULATOR HEMATOLOGY ORDERA BLES Final Result from Last 3 Months or Most Recently Relevant to Health Maintenance Insurance [place]ID [place] Care Teams Metal And Plastic Heater Relationship Specialty Start Date End Date Matthew Nesbitt MD [address] [place] [address] PCP - General Pediatrics 08/24/19
--- OUTSIDE RECORDS SUMMARY | 2024-10-19 07:59 | XMS_ITS | Clinical Summary ---
Author Organization [facility] Address [address] [place] [address] Care Team Providers Care Mat Machine Operator Name Role Phone Matthew Nesbitt MD Primary Care Provider [phone] Allergies No known active allergies Medications losartan [...] 89 06/15/2019 7:56 PM CDT Temperature 36.1 C (96.9 F) 06/15/2019 7:56 PM CDT Respiratory Rate 18 06/15/2019 7:56 PM CDT [...] patient's age to complete this topic Meningococcal B Vaccine Aged Out No l onger eligible based on patient's age to complete [...] complete this topic Insurance [employer] Care Teams Mat Machine Operator Relationship Specialty Start Date End Date Matthew Nesbitt MD [address] [place] [address] PCP - General FAMILY PRACTICE 06/15/19
--- NOTE | 2024-10-19 08:18 | ECG_ITS ---
Test Date: 2024-10-19 08:28:54 Measurements Intervals [place] Rate: 81 P: 53 DC: 171 QRS: 14 QRSD: 90 T: 20 QT: 372 QTc: 432 Interpretive Statements SINUS RHYTHM DELAYED PRECORDIAL R/S TRANSITION BORDERLINE ECG No previous ECG available for comparison Electronically Signed On 10-19-2024 09:02:10 HUMAN RESOURCES MANAGER MANUFACTURING by Edgar Zuñiga D.O.
== END 2024-10-19 07:51 | disposition home or self-care (01) ==
LOC: ANHSURGERY 07:55
PROVIDERS: PCP Family Medicine; Visit Provider Surgery
DX: K40.20 Bilateral inguinal hernia, without obstruction or gangrene, not specified as recurrent (principal); I10 Essential (primary) hypertension; Z01.818 Encounter for other preprocedural examination
CPT/HCPCS: 36415; 86850; 86900; 86901; 93005

== ENCOUNTER 2024-11-09 11:30 | Outpatient (CLI) | payer OTHER, SELFPAY ==
[2024-11-09 11:52] LABS: Basophils Percent Auto 1.1 % (0.0-1.0); Eosinophils Absolute Auto 0.17 K/mm3 (0.02-0.50); Eosinophils Percent Auto 1.8 % (1.0-6.0); Hematocrit 41.8 % (40.0-54.0); Hemoglobin 14.1 g/dL (14.0-18.0); Immature Granulocyte Absolute 0.04 K/mm3 (0.00-0.00); Immature Granulocyte Percent A 0.4 % (0.0-0.0); Lymphocytes Absolute Auto 2.78 K/mm3 (1.10-4.50); Lymphocytes Percent Auto 29.3 % (18.0-42.0); Mean Corpuscular HGB Conc 33.7 g/dL (32-36); Mean Corpuscular Hemoglobin 26.9 pg (27.0-31.0); Mean Corpuscular Volume 79.8 fL (78.0-102.0); Mean Platelet Volume 10.2 fl (8.7-11.0); Monocytes Absolute Auto 0.88 K/mm3 (0.10-0.90); Monocytes Percent Auto 9.3 % (2.0-11.0); Neutrophils Absolute Auto 5.51 K/mm3 (1.70-7.20); Neutrophils Percent Auto 58.1 % (50.0-70.0); Platelet Count Result 360 K/mm3 (150-420); Red Blood Count 5.24 M/mm3 (4.70-6.10); Red Cell Distribution Width 13.6 % (11.6-14.4); White Blood Count 9.5 K/mm3 (4.8-10.8)
[2024-11-09 12:17] LABS: Anion Gap 6 mmol/L (4-12); Blood Urea Nitrogen 10 mg/dL (7-18); Calcium 9.4 mg/dL (8.5-10.1); Carbon Dioxide 29 mmol/L (21-32); Chloride 104 mmol/L (98-108); Estimated Glomerular Filt Rate > 60; Glucose 113 mg/dL (70-99); Osmolality Calculated 288 mOsm/kg (285-295); Potassium 4.3 mmol/L (3.5-5.1); Sodium 139 mmol/L (136-145); Thyroid Stimulating Hormone 1.15 uIU/mL (0.36-3.74)
--- OUTSIDE RECORDS SUMMARY | 2024-11-09 13:25 | XMS_ITS | Clinical Summary ---
Author Organization [facility] Address [address] [place] [address] Care Team Providers Care Plasterer Journeyman Name Role Phone Matthew Nesbitt MD Primary Care Provider [phone] Allergies No known active allergies Medications losartan [...] complete this topic Insurance [employer] Care Teams Plasterer Journeyman Relationship Specialty Start Date End Date Matthew Nesbitt MD [address] [place] [address] PCP - General FAMILY PRACTICE 06/15/19
--- OUTSIDE RECORDS SUMMARY | 2024-11-09 13:25 | XMS_ITS | Clinical Summary ---
Author Organization [facility] Address [address] [place] [address] Phone Care Team Providers Care Trade Union Official Name Role Phone Matthew Nesbitt MD Primary [...] on file Legal Sex Male 7:55 AM MAIL ROOM Gender Identity Not on file Sexual Orientation Not on file Last Filed Vital Signs Vital Sign Reading Time Taken Comments Blood Pressure 126/95 10/16/2019 12:59 PM MAIL ROOM Pulse 106 10/16/2019 12:59 PM MAIL ROOM Temperature 36 C (96.8 F) 10/16/2019 12:59 PM MAIL ROOM Respiratory Rate 14 10/16/2019 12:59 PM MAIL ROOM Oxygen Saturation 100% 10/16/2019 12:59 PM MAIL ROOM Inhaled Oxygen Concentration - - Weight 102.1 kg (225 lb) 09/28/2019 3:00 PM MAIL ROOM Height 167.6 cm (5' 6 ) 09/28/2019 3:00 PM MAIL ROOM Body Mass Index 36.32 09/28/2019 3:00 PM MAIL ROOM Plan of Treatment Health Maintenance Due Date [...] (AHP) (09/07/2019) Blood specimen (specimen) Yolie Allen ASSURANCE AUDITOR, MANAGER SHIFT HEMATOLOGY ORDERA BLES Final Result from Last 3 Months or Most Recently Relevant to Health Maintenance Insurance MEDICAID [place] Care Teams Trade Union Official Relationship Specialty Start Date End Date Matthew Nesbitt MD [address] [place] [address] PCP - General Pediatrics 08/24/19
== END 2024-11-09 11:31 | disposition home or self-care (01) ==
LOC: CHSLAB 11:32
PROVIDERS: PCP Family Medicine; Visit Provider Family Medicine
DX: R00.2 Palpitations (principal)
CPT/HCPCS: 36415; 80048; 84443; 85025

== ENCOUNTER 2024-11-10 15:58 | Outpatient (CLI) | payer OTHER, SELFPAY ==
--- OUTSIDE RECORDS SUMMARY | 2024-11-10 16:01 | XMS_ITS | Clinical Summary ---
Author Organization [facility] Address [address] [place] [address] Phone Care Team Providers Care Conductor Freight Name Role Phone Matthew Nesbitt MD Primary [...] on file Legal Sex Male 7:55 AM JUDICIAL ASSISTANT Gender Identity Not on file Sexual Orientation Not on file Last Filed Vital Signs Vital Sign Reading Time Taken Comments Blood Pressure 126/95 10/16/2019 12:59 PM JUDICIAL ASSISTANT Pulse 106 10/16/2019 12:59 PM JUDICIAL ASSISTANT Temperature 36 C (96.8 F) 10/16/2019 12:59 PM JUDICIAL ASSISTANT Respiratory Rate 14 10/16/2019 12:59 PM JUDICIAL ASSISTANT Oxygen Saturation 100% 10/16/2019 12:59 PM JUDICIAL ASSISTANT Inhaled Oxygen Concentration - - Weight 102.1 kg (225 lb) 09/28/2019 3:00 PM JUDICIAL ASSISTANT Height 167.6 cm (5' 6 ) 09/28/2019 3:00 PM JUDICIAL ASSISTANT Body Mass Index 36.32 09/28/2019 3:00 PM JUDICIAL ASSISTANT Plan of Treatment Health Maintenance Due Date [...] (AHP) (09/07/2019) Blood specimen (specimen) Yolie Allen HELMINTHOLOGIST, BOILER WELDER HEMATOLOGY ORDERA BLES Final Result from Last 3 Months or Most Recently Relevant to Health Maintenance Insurance MEDICAID [place] Care Teams Conductor Freight Relationship Specialty Start Date End Date Matthew Nesbitt MD [address] [place] [address] PCP - General Pediatrics 08/24/19
--- OUTSIDE RECORDS SUMMARY | 2024-11-10 16:01 | XMS_ITS | Clinical Summary ---
Author Organization [facility] Address [address] [place] [address] Care Team Providers Care Bull Ladle Tender Name Role Phone Matthew Nesbitt MD Primary Care Provider [phone] Allergies No known active allergies Medications losartan [...] complete this topic Insurance [employer] Care Teams Bull Ladle Tender Relationship Specialty Start Date End Date Matthew Nesbitt MD [address] [place] [address] PCP - General FAMILY PRACTICE 06/15/19
--- NOTE | 2024-11-21 13:25 | WPDHOLTEREM ---
Holter/Event Monitor Holter/Event Monitor Date of procedure: 11/21/24 Holter/Event Procedure: 3-7 Day Holter Monitor Indications: Palpitations Conclusion: 1. 6 days holter monitor on 11/21/24. 2. Underlying rhythm is sinus rhythm. HR range 47-161 bpm; average HR 85 bpm. HR at 47 bpm was on 11/16/24 at 5:03 am. 3. There are rare premature supraventricular complexes. No supraventricular tachycardia. 4. There are rare premature ventricular complexes. No ventricular tachycardia. 5. No significant pauses greater than 3 seconds. 6. Patient reports 3 episodes of symptoms of irregular beats, palpitations which demonstrate sinus rhythm, HR range 78-102 bpm.
== END 2024-11-10 15:59 | disposition home or self-care (01) ==
LOC: CHSCARD 15:59
PROVIDERS: PCP Family Medicine; Visit Provider Family Medicine
DX: R00.2 Palpitations (principal)
CPT/HCPCS: 93270

== ENCOUNTER 2024-11-22 08:30 | Emergency (ER) | payer OTHER, SELFPAY ==
[2024-11-22] VITALS (7 sets, daily range): BP systolic 122–141; BP diastolic 84–99; PULSE 81–97; RESP 15–20; TEMP 35.7; O2SAT 91–99
--- NOTE | ~2024-11-22 | XR_ITS ---
EXAMINATION: XR chest 1V portable DATE: 11/22/2024 09:12 INDICATION: Chest pain. TECHNIQUE: A single frontal view of the chest was obtained. COMPARISON: Chest 2 views 09/10/2020 FINDINGS: There is no pneumonia, pleural effusion, or pneumothorax. The heart size is normal. IMPRESSION: 1. No acute cardiopulmonary disease. Reviewed, dictated and finalized at location []
--- OUTSIDE RECORDS SUMMARY | 2024-11-22 08:41 | XMS_ITS | Clinical Summary ---
Author Organization [facility] Address [address] [place] [address] Care Team Providers Care Shaft Headman Name Role Phone Matthew Nesbitt MD Primary Care Provider [phone] Allergies No known active allergies Medications losartan [...] complete this topic Insurance [employer] Care Teams Shaft Headman Relationship Specialty Start Date End Date Matthew Nesbitt MD [address] [place] [address] PCP - General FAMILY PRACTICE 06/15/19
--- OUTSIDE RECORDS SUMMARY | 2024-11-22 08:41 | XMS_ITS | Clinical Summary ---
Author Organization [facility] Address [address] [place] [address] Phone Care Team Providers Care Manager Of Data Name Role Phone Matthew Nesbitt MD Primary [...] on file Legal Sex Male 7:55 AM DIRECTOR OF SOCIAL SERVICES Gender Identity Not on file Sexual Orientation Not on file Last Filed Vital Signs Vital Sign Reading Time Taken Comments Blood Pressure 126/95 10/16/2019 12:59 PM DIRECTOR OF SOCIAL SERVICES Pulse 106 10/16/2019 12:59 PM DIRECTOR OF SOCIAL SERVICES Temperature 36 C (96.8 F) 10/16/2019 12:59 PM DIRECTOR OF SOCIAL SERVICES Respiratory Rate 14 10/16/2019 12:59 PM DIRECTOR OF SOCIAL SERVICES Oxygen Saturation 100% 10/16/2019 12:59 PM DIRECTOR OF SOCIAL SERVICES Inhaled Oxygen Concentration - - Weight 102.1 kg (225 lb) 09/28/2019 3:00 PM DIRECTOR OF SOCIAL SERVICES Height 167.6 cm (5' 6 ) 09/28/2019 3:00 PM DIRECTOR OF SOCIAL SERVICES Body Mass Index 36.32 09/28/2019 3:00 PM DIRECTOR OF SOCIAL SERVICES Plan of Treatment Health Maintenance Due Date [...] (AHP) (09/07/2019) Blood specimen (specimen) Yolie Allen TURBINE INSPECTOR, FIRER HELPER HEMATOLOGY ORDERA BLES Final Result from Last 3 Months or Most Recently Relevant to Health Maintenance Insurance MEDICAID [place] Care Teams Manager Of Data Relationship Specialty Start Date End Date Matthew Nesbitt MD [address] [place] [address] PCP - General Pediatrics 08/24/19
--- NOTE | 2024-11-22 08:44 | ED.CHESTPAIN ---
HPI - Chest Pain General Chief Complaint: Chest Pain Stated Complaint: chest pain Time Seen by Provider: 11/22/24 08:44 Source: patient Mode of arrival: ambulatory Limitations: no limitations History of Present Illness HPI narrative: 44-year-old male with a history of hypertension, hemorrhoids presents to the ED with -- chest pain-- started last night. The pain is located over the left chest. It is stabbing and lasts a few seconds with spontaneous resolution. No radiation of the pain. No nausea / vomiting. No shortness of breath. No lightheadedness. -- anxiety- Patient is anxious about an upcoming bilateral inguinal hernia repair under general anesthesia. MD complaint: chest pain Onset (ago): day(s) ( One day) Timing of current episode: episodic Prior episodes: No Onset: during rest Pain location: left chest Pain radiation: none Severity: mild Quality: sharp Relieving factors: nothing Exacerbating factors: nothing Treatment prior to arrival: none Risk Factors Coronary artery disease risk factors: none and hypertension Thoracic aortic dissection risk factors: none and longstanding hypertension Related Data Home Medications ?Medication ?Instructions ?Recorded ?Confirmed ?Last Taken ?Type losartan 25 mg tablet 25 mg PO DAILY 07/15/19 10/17/24 02/02/24 History Allergies Allergy/AdvReac Type Severity Reaction Status Date / Time No Known Allergies Allergy Verified 11/22/24 08:43 Review of Systems Review of Systems: All systems reviewed & are unremarkable except as noted in HPI and below Constitutional: Constitutional: Reports as per HPI and Reports no additional constitutional complaints Eyes: Eyes: Reports as per HPI and Reports no additional eye complaints ENT: Reports system reviewed and no additional complaints, except as documented and Reports as per HPI Cardiovascular: Cardiovascular: Reports as per HPI and Reports no additional cardiovascular complaints Respiratory: Respiratory: Reports as per HPI and Reports no additional respiratory complaints Gastrointestinal: Gastrointestinal: Reports as per HPI and Reports no additional gastrointestinal complaints Genitourinary: Genitourinary: Reports no additional male genitourinary complaints and Reports as per HPI Musculoskeletal: Musculoskeletal: Reports no additional musculoskeletal complaints and Reports as per HPI Integumentary/Breasts: Skin/Breast: Reports system reviewed and no additional complaints, except as docu and Reports as per HPI Neurologic: Reports system reviewed and no additional complaints, except as documented and Reports as per HPI Psychiatric: Psychiatric: Reports no additional psychiatric complaints and Reports as per HPI Endocrine: Endocrine: Reports no additional endocrine complaints and Reports as per HPI Hematologic/Lymphatic: Hematologic/Lymphatic: Reports no additional hematologic/lymphatic complaints and Reports as per HPI Allergic/Immunologic: Allergic/Immunologic: Reports no additional allergic/immunologic complaints and Reports as per HPI [facility] Past Medical History Medical History Hypertension Social History Social History Smoking status: Never smoker Do You Feel Safe in your Home?: Yes Lack of Transportation: No Lack of Food: Never True Current Housing: I Have Housing Concerned About Future Housing: No Difficulty Paying Gas/Electric Bills: No Difficulty Paying for Meds: No Currently Unemployed: No Education: High School Diploma/GED Living arrangements: with family Gender identity (if verbalized by the patient): Male Spiritual care concerns: No Exam Narrative: blood pressure is 132/99. Oxygen saturation of 99% on room air with a respiratory rate of 16. Const: General: no acute distress Nutritional Appearance: well nourished Orientation/consciousness: patient oriented x3 Limitations: no limitations HENMT: Head: normal to inspection Ears: external ears normal Face/Nose/Sinus: Normal external nose present Face and sinus: normal facial exam Mouth: Yes Normal oral and palatal mucosa present Throat: posterior oropharynx normal Eyes: Conjunctivae: conjunctivae normal Pupils: Equal, round and reactive pupils present EOM: EOMs intact bilaterally Direct Ophthalmoscopy: no photophobia Neck: Neck: normal visual inspection, no lymphadenopathy and no meningeal signs Chest: Chest palpation & inspection: normal inspection of the chest Resp: Effort & Inspection: normal respiratory effort Auscultation: clear to auscultation bilaterally Cardio: Rate: regular rate Rhythm: regular rhythm GI: Auscultation: normal bowel sounds Other: No tenderness/rigidity /rebound. : General: Yes no CVA tenderness Urinary Catheter: Urinary Catheter: patent and draining Back/Spine/Pelvis: Back: no CVA tenderness Skin: General skin exam: normal color Rashes: no rashes Wounds: no wounds Neuro: General: patient oriented x3, moves all extremities, no meningeal signs, no focal motor deficits and CN's II-XI intact bilaterally Cranial nerves: Yes Nystagmus not present Speech: normal speech Gait exam (Neuro): Normal gait present Extrem: General: normal to inspection and no clubbing, cyanosis or edema Psych: Mental Status: mental status grossly normal Affect: Anxious affect present Attitude: cooperative Course Course Emergency Course: Left chest pain-- EKG is unremarkable. Troponin is negative. hypertension-- Patient is stressed out and hands his blood pressure might not be accurate. Will have him continue taking his losartan 25 mg daily. Vital Signs Vital signs: Vital Signs Temperature 35.7 C L 11/22/24 08:29 Pulse Rate 84 11/22/24 08:29 Respiratory Rate 16 11/22/24 08:29 Blood Pressure 132/99 H 11/22/24 08:29 Pulse Oximetry 99 11/22/24 08:29 Oxygen Delivery Room Air 11/22/24 08:29 Temperature 35.7 C L 11/22/24 08:29 Pulse Rate 84 11/22/24 08:29 Respiratory Rate 16 11/22/24 08:29 Blood Pressure 132/99 H 11/22/24 08:29 Pulse Oximetry 99 11/22/24 08:29 Oxygen Delivery Room Air 11/22/24 08:29 MDM - Chest Pain MDM Narrative Medical decision making narrative: Chest pain hypertension Differential Diagnosis Differential diagnosis: Likely stable angina Medical Records Data Attestation: I reviewed the patient's medical records. Lab Data Attestation: I reviewed the patient's lab results. 11/22/24 09:07 11/22/24 09:07 Labs: Lab Results 11/22/24 Range/Units 09:07 WBC 8.0 (4.8-10.8) K/mm3 RBC 4.98 (4.70-6.10) M/mm3 Hgb 13.4 L (14.0-18.0) g/dL Hct 40.3 (40.0-54.0) % MCV 80.9 (78.0-102.0) fL MCH 26.9 L (27.0-31.0) pg MCHC 33.3 (32-36) g/dL RDW 13.3 (11.6-14.4) % Plt Count 301 (150-420) K/mm3 MPV 10.4 (8.7-11.0) fl Immature Gran % (Auto) 0.4 H (0.0-0.0) % Neut % (Auto) 61.2 (50.0-70.0) % Lymph % (Auto) 27.5 (18.0-42.0) % Beauregard % (Auto) 7.7 (2.0-11.0) % Eos % (Auto) 1.9 (1.0-6.0) % Baso % (Auto) 1.3 H (0.0-1.0) % Lymph # (Auto) 2.19 (1.10-4.50) K/mm3 Beauregard # (Auto) 0.61 (0.10-0.90) K/mm3 Eos # (Auto) 0.15 (0.02-0.50) K/mm3 Baso # (Auto) 0.10 (0.00-0.10) K/mm3 Abs Immat Gran (auto) 0.03 H (0.00-0.00) K/mm3 Absolute Neuts (auto) 4.88 (1.70-7.20) K/mm3 Absolute Nucleated RBC 0.00 (0.00-0.00) K/mm3 Nucleated RBC % 0.0 (0-0.0) % Sodium 137 (136-145) mmol/L Potassium 4.1 (3.5-5.1) mmol/L Chloride 102 (98-108) mmol/L Carbon Dioxide 28 (21-32) mmol/L Anion Gap 7 (4-12) mmol/L BUN 10 (7-18) mg/dL Creatinine 0.99 (0.70-1.30) mg/dL Estim Creat Clear Calc 95 ml/min Estimated GFR > 60 (59 - ) Glucose 134 H (70-99) mg/dL Calculated Osmolality 285 (285-295) mOsm/kg Lactic Acid 1.6 (0.4-2.0) mmol/L Calcium 9.0 (8.5-10.1) mg/dL Total Bilirubin 0.7 (0.00-1.00) mg/dL AST 27 (15-37) U/L ALT 63 (16-63) U/L Alkaline Phosphatase 90 (46-116) U/L Troponin I 5.3 (0.00-60.4) ng/L Total Protein 7.5 (6.4-8.2) g/dL Albumin 3.5 (3.4-5.0) g/dL ECG Data EKG #1: ECG completion date: 11/22/24 ECG completion time: 08:42 Interpretation: normal sinus rhythm. Normal axis. No ST-T wave changes noted. Discharge Plan Discharge Clinical Impression: Hypertension Chest pain Qualifiers: Chest pain type: unspecified Qualified Code(s): R07.9 - Chest pain, unspecified Patient Disposition: Home, Self-Care Condition: Stable Instructions: Antibiotic Form, Chest Pain (ED), Hypertension (ED) Patient Language: [place] Citizen Prescriptions: No Action losartan 25 mg tablet 25 mg PO DAILY Rx Instructions: daily Follow-up/Referrals: Matthew Nesbitt MD [Primary Care Provider] - Time of Disposition: 09:50 Quality HEART score for chest pain patients History: slightly suspicious ECG: normal Age: < or = to 45 years Risk factors: 1 or 2 risk factors Troponin: < or = to 1x normal limit Heart score: 1
--- NOTE | 2024-11-22 08:59 | ECG_ITS ---
Test Date: 2024-11-22 08:42:21 Measurements Intervals Brilliant Rate: 85 P: 50 CA: 181 QRS: 37 QRSD: 86 T: 31 QT: 359 QTc: 428 Interpretive Statements SINUS RHYTHM Compared to ECG 10/19/2024 08:28:54 No significant changes Electronically Signed On 11-22-2024 12:42:52 CDT by Tree Toney M.D.
[2024-11-22 09:11] LABS: Basophils Percent Auto 1.3 % (0.0-1.0); Eosinophils Absolute Auto 0.15 K/mm3 (0.02-0.50); Eosinophils Percent Auto 1.9 % (1.0-6.0); Hematocrit 40.3 % (40.0-54.0); Hemoglobin 13.4 g/dL (14.0-18.0); Immature Granulocyte Absolute 0.03 K/mm3 (0.00-0.00); Immature Granulocyte Percent A 0.4 % (0.0-0.0); Lymphocytes Absolute Auto 2.19 K/mm3 (1.10-4.50); Lymphocytes Percent Auto 27.5 % (18.0-42.0); Mean Corpuscular HGB Conc 33.3 g/dL (32-36); Mean Corpuscular Hemoglobin 26.9 pg (27.0-31.0); Mean Corpuscular Volume 80.9 fL (78.0-102.0); Mean Platelet Volume 10.4 fl (8.7-11.0); Monocytes Absolute Auto 0.61 K/mm3 (0.10-0.90); Monocytes Percent Auto 7.7 % (2.0-11.0); Neutrophils Absolute Auto 4.88 K/mm3 (1.70-7.20); Neutrophils Percent Auto 61.2 % (50.0-70.0); Platelet Count Result 301 K/mm3 (150-420); Red Blood Count 4.98 M/mm3 (4.70-6.10); Red Cell Distribution Width 13.3 % (11.6-14.4)
--- OUTSIDE RECORDS SUMMARY | 2024-11-22 09:13 | XMS_ITS | Clinical Summary ---
Author Organization [facility] Address [address] [place] [address] Phone Care Team Providers Care Cad Technician Name Role Phone Matthew Nesbitt MD [...] on file Legal Sex Male 7:55 AM CELL BUILDER Gender Identity Not on file Sexual Orientation Not on file Last Filed Vital Signs Vital Sign Reading Time Taken Comments Blood Pressure 126/95 10/16/2019 12:59 PM CELL BUILDER Pulse 106 10/16/2019 12:59 PM CELL BUILDER Temperature 36 C (96.8 F) 10/16/2019 12:59 PM CELL BUILDER Respiratory Rate 14 10/16/2019 12:59 PM CELL BUILDER Oxygen Saturation 100% 10/16/2019 12:59 PM CELL BUILDER Inhaled Oxygen Concentration - - Weight 102.1 kg (225 lb) 09/28/2019 3:00 PM CELL BUILDER Height 167.6 cm (5' 6 ) 09/28/2019 3:00 PM CELL BUILDER Body Mass Index 36.32 09/28/2019 3:00 PM CELL BUILDER Plan of Treatment Health Maintenance Due Date [...] (AHP) (09/07/2019) Blood specimen (specimen) Yolie Allen CUTTING PRESSMAN, HAND CELL TUBER HEMATOLOGY ORDERA BLES Final Result from Last 3 Months or Most Recently Relevant to Health Maintenance Insurance MED[place]ID [place] Care Teams Cad Technician Relationship Specialty Start Date End Date Matthew Nesbitt MD [address] [place] [address] PCP - General Pediatrics 08/24/19
--- OUTSIDE RECORDS SUMMARY | 2024-11-22 09:13 | XMS_ITS | Clinical Summary ---
Author Organization [facility] Address [address] [place] [address] Care Team Providers Care Laminator Printed Circuit Boards Name Role Phone Matthew Nesbitt MD Primary Care Provider [phone] Allergies No known active allergies Medications losartan [...] complete this topic Insurance [employer] Care Teams Laminator Printed Circuit Boards Relationship Specialty Start Date End Date Matthew Nesbitt MD [address] [place] [address] PCP - General FAMILY PRACTICE 06/15/19
[2024-11-22 09:32] LABS: Lactic Acid Reflex 1.6 mmol/L (0.4-2.0)
--- NOTE | 2024-11-22 09:38 | PC.NURSE ---
PT IS LYING ON STRETCHER AWAITING RESULTS AT THIS TIME. PT REPORTS HIS DAUGHTER HAS CALLED NEEDING PICKED UP FROM SCHOOL AND HE NEEDS TO LEAVE TO PICK HER UP. PT REPORTS HE WILL FOLLOW UP WITH DR GARCIA FOR RESULTS. DENIES ANY PAIN DURING ED VISIT. NAD NOTED. PT IS A&O4.
[2024-11-22 09:39] LABS: Alanine Aminotransferase 63 U/L (16-63); Albumin Level 3.5 g/dL (3.4-5.0); Alkaline Phosphatase 90 U/L (46-116); Anion Gap 7 mmol/L (4-12); Aspartate Amino Transferase 27 U/L (15-37); Bilirubin,Total 0.7 mg/dL (0.00-1.00); Blood Urea Nitrogen 10 mg/dL (7-18); Carbon Dioxide 28 mmol/L (21-32); Chloride 102 mmol/L (98-108); Estimated CRCL calculation 95 ml/min; Estimated Glomerular Filt Rate > 60; Glucose 134 mg/dL (70-99); Osmolality Calculated 285 mOsm/kg (285-295); Potassium 4.1 mmol/L (3.5-5.1); Sodium 137 mmol/L (136-145); Total Protein 7.5 g/dL (6.4-8.2)
[2024-11-22 09:44] LABS: Troponin I 5.3 ng/L (0.00-60.4)
== END 2024-11-22 09:54 | disposition home or self-care (01) ==
PROVIDERS: Emergency Provider Internal Medicine Critical Care Medicine; PCP Family Medicine
DX: I10 Essential (primary) hypertension (principal); R07.9 Chest pain, unspecified
CPT/HCPCS: 36415; 71045; 80053; 83605; 84484; 85025; 93005; 99284

== ENCOUNTER 2024-11-23 16:01 | Outpatient (CLI) | payer OTHER, SELFPAY ==
--- OUTSIDE RECORDS SUMMARY | 2024-11-23 16:25 | XMS_ITS | Clinical Summary ---
Author Organization [facility] Address [address] [place] [address] Phone Care Team Providers Care Electric Meter Tester Helper Name Role Phone Matthew Nesbitt MD [...] on file Legal Sex Male 7:55 AM COATINGS INSPECTOR Gender Identity Not on file Sexual Orientation Not on file Last Filed Vital Signs Vital Sign Reading Time Taken Comments Blood Pressure 126/95 10/16/2019 12:59 PM COATINGS INSPECTOR Pulse 106 10/16/2019 12:59 PM COATINGS INSPECTOR Temperature 36 C (96.8 F) 10/16/2019 12:59 PM COATINGS INSPECTOR Respiratory Rate 14 10/16/2019 12:59 PM COATINGS INSPECTOR Oxygen Saturation 100% 10/16/2019 12:59 PM COATINGS INSPECTOR Inhaled Oxygen Concentration - - Weight 102.1 kg (225 lb) 09/28/2019 3:00 PM COATINGS INSPECTOR Height 167.6 cm (5' 6 ) 09/28/2019 3:00 PM COATINGS INSPECTOR Body Mass Index 36.32 09/28/2019 3:00 PM COATINGS INSPECTOR Plan of Treatment Health Maintenance Due Date [...] (AHP) (09/07/2019) Blood specimen (specimen) Yolie Allen SAMPLE PASTER, DRILL SETUP OPERATOR HEMATOLOGY ORDERA BLES Final Result from Last 3 Months or Most Recently Relevant to Health Maintenance Insurance MEDICAID [place] Care Teams Electric Meter Tester Helper Relationship Specialty Start Date End Date Matthew Nesbitt MD [address] [place] [address] PCP - General Pediatrics 08/24/19
--- OUTSIDE RECORDS SUMMARY | 2024-11-23 16:25 | XMS_ITS | Clinical Summary ---
Author Organization [facility] Address [address] [place] [address] Care Team Providers Care Resource Program Teacher Name Role Phone Matthew Nesbitt MD Primary Care Provider [phone] Allergies No known active allergies Medications losartan [...] complete this topic Insurance [employer] Care Teams Resource Program Teacher Relationship Specialty Start Date End Date Matthew Nesbitt MD [address] [place] [address] PCP - General FAMILY PRACTICE 06/15/19
== END 2024-11-23 16:02 | disposition home or self-care (01) ==
PROVIDERS: PCP Family Medicine; Visit Provider Anesthesiology
DX: K40.20 Bilateral inguinal hernia, without obstruction or gangrene, not specified as recurrent (principal); Z01.818 Encounter for other preprocedural examination
CPT/HCPCS: 36415; 86850; 86900; 86901

== ENCOUNTER 2024-12-21 16:58 | Outpatient (CLI) | payer OTHER, SELFPAY ==
--- OUTSIDE RECORDS SUMMARY | 2024-12-21 17:28 | XMS_ITS | Clinical Summary ---
Author Organization [facility] Address [address] [place] [address] Care Team Providers Care Dinkey Skinner Name Role Phone Matthew Nesbitt MD Primary Care Provider [phone] Allergies No known active allergies Medications losartan [...] - 19+ 3-dose series) 2000 COVID-19 Vaccine ( - 2023-2 5 season) 2024 HPV Vaccines Aged Out No longer eligi ble based on patient's age to complete this topic Meningococcal B Vaccine Aged Out No l onger eligible based on patient's age to complete this topic Meningococcal Vaccine Aged Out No devonte melinda eligible based on patient's age to complete this topic Pneumococcal Vaccine: Pediat rics (0 to 5 Years) and At-Risk Patients (6 to 49 Years) Aged Out No longer eligible b ased on patient's age to complete this topic RSV Immunizations Under 20 Months Aged Out No longer eligible based on patient's age to complete this topic Insurance [employer] Care Teams Dinkey Skinner Relationship Specialty Start Date End Date Matthew Nesbitt MD [address] [place], [place] [id number] PCP - General FAMILY PRACTICE 06/15/19
--- OUTSIDE RECORDS SUMMARY | 2024-12-21 17:28 | XMS_ITS | Clinical Summary ---
Author Organization [facility] Address [address] [place] [address] Phone Care Team Providers Care Equipment Washer Name Role Phone Matthew Nesbitt MD Primary [...] on file Legal Sex Male 7:55 AM OFFSET PLATE MAKER Gender Identity Not on file Sexual Orientation Not on file Last Filed Vital Signs Vital Sign Reading Time Taken Comments Blood Pressure 126/95 10/16/2019 12:59 PM OFFSET PLATE MAKER Pulse 106 10/16/2019 12:59 PM OFFSET PLATE MAKER Temperature 36 C (96.8 F) 10/16/2019 12:59 PM OFFSET PLATE MAKER Respiratory Rate 14 10/16/2019 12:59 PM OFFSET PLATE MAKER Oxygen Saturation 100% 10/16/2019 12:59 PM OFFSET PLATE MAKER Inhaled Oxygen Concentration - - Weight 102.1 kg (225 lb) 09/28/2019 3:00 PM OFFSET PLATE MAKER Height 167.6 cm (5' 6 ) 09/28/2019 3:00 PM OFFSET PLATE MAKER Body Mass Index 36.32 09/28/2019 3:00 PM OFFSET PLATE MAKER Plan of Treatment Health Maintenance Due Date [...] (AHP) (09/07/2019) Blood specimen (specimen) Yolie Allen COIL FORMER, COMPUTER SYSTEMS MANAGER HEMATOLOGY ORDERA BLES Final Result from Last 3 Months or Most Recently Relevant to Health Maintenance Insurance MEDICAID [place] Care Teams Equipment Washer Relationship Specialty Start Date End Date Matthew Nesbitt MD [address] [place] [address] PCP - General Pediatrics 08/24/19
== END 2024-12-21 16:59 | disposition home or self-care (01) ==
LOC: ANHLAB 16:59
PROVIDERS: PCP Family Medicine; Visit Provider Anesthesiology
DX: K40.20 Bilateral inguinal hernia, without obstruction or gangrene, not specified as recurrent (principal)
CPT/HCPCS: 36415; 86850; 86900; 86901

== ENCOUNTER 2025-01-04 01:23 | Day surgery (SDC) | payer OTHER, SELFPAY ==
[2024-10-17 14:27] VITALS: BMI 40.6
--- NOTE | 2024-10-17 14:28 | PC.NURSE ---
Addendum entered by John Michelle RN 10/24/24 09:20: Spoke with patient, no changes to health hx. Informed to arrive at noon on 11-02-2024 for 2pm surgery. Discussed NPO status again. Original Note: Report to the Outpatient Waiting Room, entrance under the green pavilion located off [facility], at time _0600_ on date _[id number]_. Planned Procedure Time: _0730_.? Time changes happen often and if your time is changed the preop area will call you the afternoon before. - You and your visitor will be asked to self-screen and do not enter if you have any COVID symptoms. Please call surgeon if you need to reschedule. - A mask is optional within the hospital at this time. Patients may have clear liquids (water, carbonated beverages, clear teas, apple juice) until 3 hours prior to surgery with a maximum of 20 ounces. - No food from midnight until time of surgery and no smoking, or chewing tobacco (or any form of nicotine). No chewing gum, candy or mints. Take only the following medications with a SIP of water on the morning of surgery: ____None DO NOT STOP ANY OF YOUR OTHER PRESCRIPTION MEDICATIONS PRIOR TO SURGERY EXCEPT THE FOLLOWING Hold all vitamins and supplements for 3 days per anesthesiologist. Medications to discontinue per physician Date to take last dose Please no make-up, nail finnish, hairspray, perfume, deodorant, or body powder the day of surgery.? No jewelry (including any body piercings) or valuables the day of surgery, leave them at home.? Please take a shower or bath the night before, or the morning of, surgery with an antibacterial soap.? Wear comfortable, loose fitting clothing.? - Jewelry must be removed prior to entering the operating room.? Rings and piercings that are not removed may be cut off. - The hospital will not accept responsibility for valuables.? - Please leave all valuables, including medications, at home the day of surgery. If you are going home after surgery, a licensed tow bar driver must drive you home.? - NO public transportation without another adult if you receive anesthesia. - We recommend that an adult stay with you for 24 hours following discharge. - We also recommend that you do not drive, make important decision, drink alcoholic beverages, or take any drugs that were not prescribed by your health care provider for at least 24 hours after your discharge time. Follow any additional instructions given to you from your surgeon. Telephone instructions given to __Frank___and asked if any additional questions and then verbalized understanding. Patient advised to call surgeon office or pre surgery nurse liaison [phone] if any additional questions.
--- OUTSIDE RECORDS SUMMARY | 2024-11-02 00:56 | XMS_ITS | Clinical Summary ---
Author Organization [facility] Address [address] [place] [address] Phone Care Team Providers Care Kinesiologist Name Role Phone Matthew Nesbitt MD Primary [...] on file Legal Sex Male 7:55 AM PRODUCT DIRECTOR Gender Identity Not on file Sexual Orientation Not on file Last Filed Vital Signs Vital Sign Reading Time Taken Comments Blood Pressure 126/95 10/16/2019 12:59 PM PRODUCT DIRECTOR Pulse 106 10/16/2019 12:59 PM PRODUCT DIRECTOR Temperature 36 C (96.8 F) 10/16/2019 12:59 PM PRODUCT DIRECTOR Respiratory Rate 14 10/16/2019 12:59 PM PRODUCT DIRECTOR Oxygen Saturation 100% 10/16/2019 12:59 PM PRODUCT DIRECTOR Inhaled Oxygen Concentration - - Weight 102.1 kg (225 lb) 09/28/2019 3:00 PM PRODUCT DIRECTOR Height 167.6 cm (5' 6 ) 09/28/2019 3:00 PM PRODUCT DIRECTOR Body Mass Index 36.32 09/28/2019 3:00 PM PRODUCT DIRECTOR Plan of Treatment Health Maintenance Due Date [...] (AHP) (09/07/2019) Blood specimen (specimen) Yolie Allen LOOP MACHINE OPERATOR, FISH AND WILDLIFE BIOLOGIST HEMATOLOGY ORDERA BLES Final Result from Last 3 Months or Most Recently Relevant to Health Maintenance Insurance MEDICAID [place] Care Teams Kinesiologist Relationship Specialty Start Date End Date Matthew Nesbitt MD [address] [place] [address] PCP - General Pediatrics 08/24/19
--- OUTSIDE RECORDS SUMMARY | 2024-11-02 00:56 | XMS_ITS | Clinical Summary ---
Author Organization [facility] Address [address] [place] [address] Care Team Providers Care Inventory And Pricing Associate Name Role Phone Matthew Nesbitt MD Primary Care Provider [phone] Allergies No known active allergies Medications losartan [...] complete this topic Insurance [employer] Care Teams Inventory And Pricing Associate Relationship Specialty Start Date End Date Matthew Nesbitt MD [address] [place] [address] PCP - General FAMILY PRACTICE 06/15/19
--- NOTE | 2024-11-20 09:13 | PC.NURSE ---
Report to the Outpatient Waiting Room, entrance under the green pavilion located off [facility], at time 1000_ on date _11/30/24_. Planned Procedure Time: _1200 .? Time changes happen often and if your time is changed the preop area will call you the afternoon before. - You and your visitor will be asked to self-screen and do not enter if you have any COVID symptoms. Please call surgeon if you need to reschedule. - A mask is optional within the hospital at this time. Patients may have clear liquids (water, carbonated beverages, clear teas, apple juice) until 3 hours prior to surgery with a maximum of 20 ounces. - No food from midnight until time of surgery and no smoking, or chewing tobacco (or any form of nicotine). No chewing gum, candy or mints. - Infants may have breast milk until 4 hours before surgery, infant formula 6 hours prior to surgery. - Children will be allowed to drink immediately following surgery.? If applicable, please bring a bottle or sippy cup to assist with drinking. Juice, water, soda, and popsicles are readily available.? For infants on formula, please bring formula the day of surgery.? Pacifiers are allowed. Take only the following medications with a SIP of water on the morning of surgery: ___NONE DO NOT STOP ANY OF YOUR OTHER PRESCRIPTION MEDICATIONS PRIOR TO SURGERY EXCEPT THE FOLLOWING Hold all vitamins and supplements for 3 days per anesthesiologist. Medications to discontinue per physician Date to take last dose Please no make-up, nail bahraini, hairspray, perfume, deodorant, or body powder the day of surgery.? No jewelry (including any body piercings) or valuables the day of surgery, leave them at home.? Please take a shower or bath the night before, or the morning of, surgery with HIBICLENS antibacterial soap.? Wear comfortable, loose fitting clothing.? Children are encouraged to wear pajamas. - Jewelry must be removed prior to entering the operating room.? Rings and piercings that are not removed may be cut off. - The hospital will not accept responsibility for valuables.? - Please leave all valuables, including medications, at home the day of surgery. If you are going home after surgery, a licensed garbage truck driver must drive you home.? - NO public transportation without another adult if you receive anesthesia. - We recommend that an adult stay with you for 24 hours following discharge. - We also recommend that you do not drive, make important decision, drink alcoholic beverages, or take any drugs that were not prescribed by your health care provider for at least 24 hours after your discharge time. For Pediatric surgeries, we recommend two adults accompany the child home. Follow any additional instructions given to you from your surgeon. Telephone instructions given to _PATIENT_and asked if any additional questions and then verbalized understanding. Patient advised to call surgeon office or pre surgery nurse liaison [phone] if any additional questions.
--- NOTE | 2024-12-14 13:47 | PC.NURSE ---
Addendum entered by Lorenza Son RN 12/14/24 14:09: This RN has given pt updated day of surgery instructions via phone call and will have a physical copy available at the draw station for pickup on the day he comes in for lab work. Original Note: Surgery Rescheduled for 12/25/2024- Pts. Name, , allergies, preferred phramacy, and med list were all re-confirmed. Pt. stated no changes to pre-op interview questions or PMH since last done on 11/20/24. Report to the Outpatient Waiting Room, entrance under the green pavilion located off [facility], at time 0900_ on date _12/25/24_. Planned Procedure Time: _1100. Time changes happen often and if your time is changed the preop area will call you the afternoon before. - You and your visitor will be asked to self-screen and do not enter if you have any COVID symptoms. Please call surgeon if you need to reschedule. - A mask is optional within the hospital at this time. Patients may have clear liquids (water, carbonated beverages, clear teas, apple juice) until 3 hours prior to surgery with a maximum of 20 ounces. - No food from midnight until time of surgery and no smoking, or chewing tobacco (or any form of nicotine). No chewing gum, candy or mints. Take only the following medications with a SIP of water on the morning of surgery: ___NONE DO NOT STOP ANY OF YOUR OTHER PRESCRIPTION MEDICATIONS PRIOR TO SURGERY EXCEPT THE FOLLOWING Hold all vitamins and supplements for 3 days per anesthesiologist. Please no make-up, nail urdu, hairspray, perfume, deodorant, or body powder the day of surgery.? No jewelry (including any body piercings) or valuables the day of surgery, leave them at home.? Please take a shower or bath the night before, or the morning of, surgery with HIBICLENS antibacterial soap.? Wear comfortable, loose fitting clothing.? - Jewelry must be removed prior to entering the operating room.? Rings and piercings that are not removed may be cut off. - The hospital will not accept responsibility for valuables.? - Please leave all valuables, including medications, at home the day of surgery. If you are going home after surgery, a licensed mobile lounge driver must drive you home.? - NO public transportation without another adult if you receive anesthesia. - We recommend that an adult stay with you for 24 hours following discharge. - We also recommend that you do not drive, make important decision, drink alcoholic beverages, or take any drugs that were not prescribed by your health care provider for at least 24 hours after your discharge time. Follow any additional instructions given to you from your surgeon. Telephone instructions given to _Frank_and asked if any additional questions and then verbalized understanding. Patient advised to call surgeon office or pre surgery nurse liaison [phone] if any additional questions.
--- OUTSIDE RECORDS SUMMARY | 2024-12-25 02:26 | XMS_ITS | Clinical Summary ---
Author Organization [facility] Address [address] [place] [address] Care Team Providers Care Meat Clerk Name Role Phone Matthew Nesbitt MD Primary Care Provider [phone] Allergies No known active allergies Medications losartan [...] complete this topic Insurance [employer] Care Teams Meat Clerk Relationship Specialty Start Date End Date Matthew Nesbitt MD [address] [place], [place] [id number] PCP - General FAMILY PRACTICE 06/15/19
--- OUTSIDE RECORDS SUMMARY | 2024-12-25 02:26 | XMS_ITS | Clinical Summary ---
Author Organization [facility] Address [address] [place] [address] Phone Care Team Providers Care Preschool Assistant Principal Name Role Phone Matthew Nesbitt MD Primary [...] on file Legal Sex Male 7:55 AM RATER ASSOCIATE Gender Identity Not on file Sexual Orientation Not on file Last Filed Vital Signs Vital Sign Reading Time Taken Comments Blood Pressure 126/95 10/16/2019 12:59 PM RATER ASSOCIATE Pulse 106 10/16/2019 12:59 PM RATER ASSOCIATE Temperature 36 C (96.8 F) 10/16/2019 12:59 PM RATER ASSOCIATE Respiratory Rate 14 10/16/2019 12:59 PM RATER ASSOCIATE Oxygen Saturation 100% 10/16/2019 12:59 PM RATER ASSOCIATE Inhaled Oxygen Concentration - - Weight 102.1 kg (225 lb) 09/28/2019 3:00 PM RATER ASSOCIATE Height 167.6 cm (5' 6 ) 09/28/2019 3:00 PM RATER ASSOCIATE Body Mass Index 36.32 09/28/2019 3:00 PM RATER ASSOCIATE Plan of Treatment Health Maintenance Due Date [...] (AHP) (09/07/2019) Blood specimen (specimen) Yolie Allen ISO COORDINATOR, RESISTOR TESTING MACHINE OPERATOR HEMATOLOGY ORDERA BLES Final Result from Last 3 Months or Most Recently Relevant to Health Maintenance Insurance MEDICAID [place] Care Teams Preschool Assistant Principal Relationship Specialty Start Date End Date Matthew Nesbitt MD [address] [place] [address] PCP - General Pediatrics 08/24/19
--- NOTE | 2024-12-25 12:19 | PC.NURSE ---
Report to the Outpatient Waiting Room, entrance under the green pavilion located off [facility], at time _0730_ on date _[id number]_. Planned Procedure Time: _0930_.? Time changes happen often and if your time is changed the preop area will call you the afternoon before. - You and your visitor will be asked to self-screen and do not enter if you have any COVID symptoms. Please call surgeon if you need to reschedule. - A mask is optional within the hospital at this time. Patients may have clear liquids (water, carbonated beverages, clear teas, apple juice) until 3 hours prior to surgery with a maximum of 20 ounces. - No food from midnight until time of surgery and no smoking, or chewing tobacco (or any form of nicotine). No chewing gum, candy or mints. Take only the following medications with a SIP of water on the morning of surgery: __None___ DO NOT STOP ANY OF YOUR OTHER PRESCRIPTION MEDICATIONS PRIOR TO SURGERY EXCEPT THE FOLLOWING Hold all vitamins and supplements for 3 days per anesthesiologist. Medications to discontinue per physician Date to take last dose Please no make-up, nail indian, hairspray, perfume, deodorant, or body powder the day of surgery.? No jewelry (including any body piercings) or valuables the day of surgery, leave them at home.? Please take a shower or bath the night before, or the morning of, surgery with an antibacterial soap.? Wear comfortable, loose fitting clothing. - Jewelry must be removed prior to entering the operating room.? Rings and piercings that are not removed may be cut off. - The hospital will not accept responsibility for valuables.? - Please leave all valuables, including medications, at home the day of surgery. If you are going home after surgery, a licensed sheet pile driver operator must drive you home.? - NO public transportation without another adult if you receive anesthesia. - We recommend that an adult stay with you for 24 hours following discharge. - We also recommend that you do not drive, make important decision, drink alcoholic beverages, or take any drugs that were not prescribed by your health care provider for at least 24 hours after your discharge time. Follow any additional instructions given to you from your surgeon. Telephone instructions given to __Frank__and asked if any additional questions and then verbalized understanding. Patient advised to call surgeon office or pre surgery nurse liaison [phone] if any additional questions.
[2025-01-04] VITALS (11 sets, daily range): BP systolic 133–170; BP diastolic 84–100; PULSE 87–106; RESP 16–22; TEMP 36.4–36.9; O2SAT 94–97; BMI 39.3
--- OUTSIDE RECORDS SUMMARY | 2025-01-04 01:26 | XMS_ITS | Clinical Summary ---
Author Organization [facility] Address [address] [place] [address] Care Team Providers Care Electronics Installer Name Role Phone Matthew Nesbitt MD Primary Care Provider [phone] Allergies No known active allergies Medications losartan [...] complete this topic Insurance [employer] Care Teams Electronics Installer Relationship Specialty Start Date End Date Matthew Nesbitt MD [address] [place], [place] [id number] PCP - General FAMILY PRACTICE 06/15/19
--- OUTSIDE RECORDS SUMMARY | 2025-01-04 01:26 | XMS_ITS | Clinical Summary ---
Author Organization [facility] Address [address] [place] [address] Phone Care Team Providers Care Exploration Engineer Name Role Phone Matthew Nesbitt MD [...] on file Legal Sex Male 7:55 AM RESIDENTIAL SALES Gender Identity Not on file Sexual Orientation Not on file Last Filed Vital Signs Vital Sign Reading Time Taken Comments Blood Pressure 126/95 10/16/2019 12:59 PM RESIDENTIAL SALES Pulse 106 10/16/2019 12:59 PM RESIDENTIAL SALES Temperature 36 C (96.8 F) 10/16/2019 12:59 PM RESIDENTIAL SALES Respiratory Rate 14 10/16/2019 12:59 PM RESIDENTIAL SALES Oxygen Saturation 100% 10/16/2019 12:59 PM RESIDENTIAL SALES Inhaled Oxygen Concentration - - Weight 102.1 kg (225 lb) 09/28/2019 3:00 PM RESIDENTIAL SALES Height 167.6 cm (5' 6 ) 09/28/2019 3:00 PM RESIDENTIAL SALES Body Mass Index 36.32 09/28/2019 3:00 PM RESIDENTIAL SALES Plan of Treatment Health Maintenance Due Date [...] (AHP) (09/07/2019) Blood specimen (specimen) Yolie Allen PEACE OFFICER, ENRICHMENT SPECIALIST HEMATOLOGY ORDERA BLES Final Result from Last 3 Months or Most Recently Relevant to Health Maintenance Insurance MEDICAID [place] Care Teams Exploration Engineer Relationship Specialty Start Date End Date Matthew Nesbitt MD [address] [place] [address] PCP - General Pediatrics 08/24/19
--- NOTE | 2025-01-04 07:22 | PM.IMHP ---
H&P: HPI History of Present Illness Date/Time: 01/04/25 07:22 Chief Complaint: bilateral inguinal hernia Narrative: The patient is a 44-year-old male 1st seen in July for bilateral inguinal hernia. The patient reports that the hernias seemed to be slowly worsening especially on the right side. The patient reports symptomatology, including pain and pressure specially with lifting, coughing, etc. Review of Systems Review of Systems: All systems reviewed & are unremarkable except as noted in HPI and below PMFSH Past Medical History Medical History Hypertension Social History Social History Smoking status: Never smoker Do You Feel Safe in your Home?: Yes Lack of Transportation: No Lack of Food: Never True Current Housing: I Have Housing Concerned About Future Housing: No Difficulty Paying Gas/Electric Bills: No Difficulty Paying for Meds: No Currently Unemployed: No Education: High School Diploma/GED Living arrangements: with family Gender identity (if verbalized by the patient): Male Spiritual care concerns: No Meds Home Medications and Allergies Home Medications ?Medication ?Instructions ?Recorded ?Confirmed ?Type losartan 25 mg tablet 25 mg PO DAILY 07/15/19 12/25/24 History Allergies Allergy/AdvReac Type Severity Reaction Status Date / Time No Known Allergies Allergy Verified 12/25/24 12:21 Exam Const: General: cooperative, comfortable and no acute distress Resp: Auscultation: clear to auscultation bilaterally Cardio: Rate: regular rate Rhythm: regular rhythm GI: GI Palp: Yes abdominal tenderness, Yes Soft to palpation and Yes Hernia present Other: Bilateral inguinal hernia right greater than left Skin: General skin exam: normal color and no rashes or lesions noted Assessment and Plan Assessment and plan (1) Bilateral inguinal hernia: Qualifiers: Obstruction and gangrene presence: without obstruction or gangrene Recurrence: non-recurrent Qualified Code(s): K40.20 - Bilateral inguinal hernia, without obstruction or gangrene, not specified as recurrent Code(s): K40.20 - Bilateral inguinal hernia, without obstruction or gangrene, not specified as recurrent Status: Acute Assessment and Plan: will set up for robotic assisted repair of bilateral inguinal hernia with mesh
--- NOTE | 2025-01-04 07:24 | WPDHPUPDATE1 ---
History and Physical Update Update Date/Time: 01/04/25 07:24 History and Physical has been reviewed, including an updated exam of the patient. There are NO changes in the patient's condition. Risks, benefits, and alternatives have been discussed and questions answered. Patient agrees to proceed with procedure.
[2025-01-04] MEDS: KETOROLAC 15 MG/ML VIAL (*BKC) IV PUSH (08:31)
[2025-01-04] MEDS: ACETAMINOPHEN 500 MG TABLET 1000 MG PO (08:31)
[2025-01-04] MEDS: LACTATED RINGERS 1,000 ML 30 ML IV CONT ×2 (08:31→11:23)
--- NOTE | 2025-01-04 09:40 | P.PNAN_ITS ---
Anes - Initial Pre Proc Eval Procedure: Operation Date: 01/04/25 09:30 Proposed Procedures p Robotic Assisted Bilateral Inguinal Hernia Repair with Mesh - Fide Jacobs MD Date/Time: 01/04/25 09:40 Surgeon: Fide Jacobs MD Pre Op Diagnosis: bilat inguinal hernias Patient Data Age: 44 Gender: M Height: 1.65 m Weight: 107.3 kg Last Vital Signs Temp 97.6 F 01/04/25 08:51 Pulse 106 H 01/04/25 08:51 BP 155/98 H 01/04/25 08:51 Pulse Ox 97 01/04/25 08:51 O2 Del Method Room Air 01/04/25 08:51 Allergies Allergy/AdvReac Type Severity Reaction Status Date / Time No Known Allergies Allergy Verified 01/04/25 07:52 Home Medications ?Medication ?Instructions ?Recorded ?Confirmed ?Type losartan 25 mg tablet 25 mg PO DAILY 07/15/19 01/04/25 History Patient hx anesthesia problems: none Family hx anesthesia problems: none Results Review: All pre-operative results and documents have been reviewed as part of the pre- operative evaluation. [facility] Past Medical History Medical History Hypertension Social History Social History Smoking status: Never smoker Do You Feel Safe in your Home?: Yes Lack of Transportation: No Lack of Food: Never True Current Housing: I Have Housing Concerned About Future Housing: No Difficulty Paying Gas/Electric Bills: No Difficulty Paying for Meds: No Currently Unemployed: No Education: High School Diploma/GED Living arrangements: with family Gender identity (if verbalized by the patient): Male Spiritual care concerns: No Anes - Eval Final PreProcedure Day of Procedure 01/04/25 09:40 Patient weight: obese Lungs: normal air movement Airway: Mallampati scale class II and special considerations (Teeth in very poor condition, many missing, pt states none loose. ) Neurological: alert and oriented Last oral intake: >/= 8 hours ASA classification: II Emergent: no Anesthetic plan: proceed Anesthesia type and monitoring: general ETT and standard monitoring Results Review: All pre-operative results and documents have been reviewed as part of the pre- operative evaluation. HTN, snoring, never had sleep study. Pt concerned about dizziness and visual changes post op, req no scop patch. Informed Consent: The patient's anesthetic plan and its attendant risks and benefits were discussed with the patient/family/POA. Questions were solicited and answers provided to the satisfaction of the patient/family/POA.
[2025-01-04] MEDS: ceFAZolin 2 GM/D5W 50 ML 2 GM/50 ML BAG IVPB (09:53)
[2025-01-04] MEDS: BUPIVACAINE/EPINEPHRINE 0.5% 50 ML VIAL 30 ML INFILTRATE (10:17)
--- NOTE | 2025-01-04 11:27 | P.OP_ITS ---
Procedure Note - Detailed Date of Procedure 01/04/25 Pre-op Diagnosis bilateral inguinal hernia Post-op Diagnosis Same Procedure Performed robotic assisted bilateral inguinal hernia repair with mesh Surgeon Fide Jacobs MD Anesthesia General Indications 44-year-old male presenting with bilateral inguinal hernia, right greater than left. Findings Bilateral indirect inguinal hernia, right greater than left Description of Procedure Patient was brought into the operating room and placed in the supine position. After adequate induction of general anesthesia, the patient was prepped and draped in normal sterile fashion. A time-out was then done to verify the patient's identity, as well as the procedure being performed. I began by making a 8 mm incision in the supraumbilical region, a Veress needle was then placed into the peritoneal cavity. CO2 gas was then insufflated and after adequate pneumoperitoneum was achieved, the Veress needle was removed. I then placed an 8 mm trocar through this incision. I then placed the endoscope through this trocar site and under direct visualization placed 2 further 8 mm ports in the right and left mid abdomen. The [employer] robot was then docked to the 3 trocar sites. I then scrubbed out and went to the robotic console. Upon examining the pelvis, it was noted that the patient had a moderate sized right inguinal hernia. The left side was examined and a small hernia defect was noted. I began by making a preperitoneal flap approximately 6 cm superior to the right sided defect. This flap was carried medially past the umbilical ligaments and laterally to the transversalis. It then began dissection of my medial compartment taking this down to the pubic tubercle. The direct space was examined and no hernia was noted. I then began the lateral dissection taking this down to the transversalis fascia. Once these compartments were achieved, I began dissection around the cord structures. A moderate sized indirect hernia was noted at this point. Using careful dissection, was able to reduce indirect hernia sac off the cord structures. Once this was adequately done, I went ahead and placed a large piece of 3D Max mesh into the abdominal cavity. The mesh was carefully positioned, centering the center of the mesh over the indirect defect. Once this was done, was very satisfied with our repair. Using 3-0 Vicryl sutures, I tacked the mesh medially to Mirza's ligament. Two lateral sutures were placed from the mesh to the transversalis fascia. I then began on the left side by making a preperitoneal flap approximately 6 cm superior to the left sided defect. This flap was carried medially past the umbilical ligaments and laterally to the transversalis. It then began dissection of my medial compartment taking this down to the pubic tubercle. Again, no direct hernia was noted in this space. I then began the lateral dissection taking this down to the transversalis fascia. Once these compartments were achieved, I began dissection around the cord structures. A small indirect hernia was noted at this point. Using careful dissection, was able to reduce indirect hernia sac off the cord structures. Once this was adequately done, I went ahead and placed a large piece of 3D Max mesh into the abdominal cavity. The mesh was carefully positioned, centering the center of the mesh over the indirect defect. Once this was done, was very satisfied with our repair. Using 3-0 Vicryl sutures, I tacked the mesh medially to Mirza's ligament. Two lateral sutures were placed from the mesh to the transversalis fascia.I then closed the peritoneal flap bilaterally with running 2.0 V Lock suture x 2. The abdomen was then desufflated, and all ports were removed. All incisions were then closed with the 4.0 monocryl suture. Dermabond was placed on each wound. The patient tolerated the procedure well, was extubated in the operating room postoperatively, and will now be transferred to the recovery room in stable condition. Implants bilateral large 3DMax mesh Estimated Blood Loss 10 Drains No Packing No Pathology None sent Complications No immediate complications Condition Stable Disposition PACU [facility] Billing Surgery - Charge Forward: Surgery Billing
== END 2025-01-04 13:40 | disposition home or self-care (01) ==
PROVIDERS: PCP Family Medicine; Visit Provider Surgery
PROC: 8E0Y4CZ Robotic Assisted Procedure of Lower Extremity, Percutaneous Endoscopic Approach (ICD-10-PCS; CPT 49650; principal; 2025-01-04 09:30)
DX: K40.20 Bilateral inguinal hernia, without obstruction or gangrene, not specified as recurrent (principal); I10 Essential (primary) hypertension; E66.9 Obesity, unspecified; Z68.39 Body mass index [BMI] 39.0-39.9, adult
CPT/HCPCS: 49650; S2900; A9270; C1781; J0690; J1100; J1885; J2250; J2405; J2704; J3010; J7120

== ENCOUNTER 2025-02-16 12:47 | Outpatient (CLI) | payer OTHER, SELFPAY ==
--- NOTE | ~2025-02-16 | CT_ITS ---
Non-contrast CT scan of the Pelvis Clinical indication: Right lower groin pain Technique: 2.5 mm axial scans were obtained through the pelvis without intravenous or oral contrast. Dose reduction technique was used on this scan by utilizing automated exposure control and iterative reconstruction technique. The dose-length product (DLP) was 946.62 mGy-cm. COMPARISON: 07/31/2024 Findings: Urinary bladder unremarkable. Prostate gland and seminal vesicles are unremarkable. No asci dayami. Visualized bowel loops are unremarkable. No acute inflammatory process seen in the pelvis. Visualized musculature unremarkable. No peripheral soft tissue mass or fluid collection seen. Impression: No significant abnormality seen.0 Reviewed, dictated and finalized at location M. Impression: No significant abnormality seen.0
== END 2025-02-16 12:48 | disposition home or self-care (01) ==
LOC: CHSIMG 12:49
PROVIDERS: PCP Family Medicine; Visit Provider Surgery
DX: R10.31 Right lower quadrant pain (principal); Z87.19 Personal history of other diseases of the digestive system; Z98.890 Other specified postprocedural states
CPT/HCPCS: 72192

== ENCOUNTER 2025-05-22 02:05 | Day surgery (SDC) | payer OTHER, SELFPAY ==
[2025-04-03 15:00] VITALS: BMI 40.2
--- OUTSIDE RECORDS SUMMARY | 2025-05-21 08:00 | XMS_ITS | Encounter Summary ---
Author Organization [facility] Address [facility] [place] [address] Care Team Providers Care Paralegal Supervisor Name Role Phone Matthew Nesbitt MD Primary Care Provider [phone] Reason for Referral * Imaging (Routine) - Closed Specialty Diagnoses / Procedures Referred By Contac t Referred To Contact RADIOLOGY Diagnoses Right lower quadrant pain Procedures US GROIN NON VASCULAR Fide Jacobs MD [address] [place] [address] [place] [address] Phone: tel: fax: Referral ID Status Reason Start Date Expiration Date Visits Re quested Visits Authorized [id number] Closed 05/16/2025 05/16/2026 1 1 Reason for Visit * Imaging (Routine) - Closed Specialty Diagnoses / Procedures Referred By Contprakash gutierrez Referred To Contact RADIOLOGY Diagnoses Right lower quadrant pain Procedures US GROIN NON VASCULAR Fide Jacobs MD [address] [place] [address] [place] [address] Phone: tel: fax: Referral ID Status Reason Start Date Expiration Date Visits Re quested Visits Authorized [id number] Closed 05/16/2025 05/16/2026 1 1 Encounter Details Date Type Department Care Team (Late st Contact Info) Description 05/21/2025 8:00 AM CDT Hospital Encounter [facility] [address] [place] [address] Fide Jacobs MD [address] [place] [address] [place] [address] Arrived Social History Tobacco Use Types Packs/Day Years [...] Information Value Date Recorded Sex Assigned at Male 05/21/2025 8:26 AM CDT Legal Sex Male 7:27 PM CDT Gender Identity Not on file Sexual Orientation Not on file documented as of this encounter Plan of Treatment Pending Results Name Type Priority Associated Diagnoses Date /Time US GROIN NON VASCULAR Ultrasound Routine Right lower quadrant pain 05/21/2025 8:52 AM CDT Scheduled Orders Name Type Priority Associated Diagnoses Orde r Schedule US GROIN NON VASCULAR Ultrasound Routine Right lower quadrant pain Once for 1 Occurrences starting 05/21/2025 until 05/21/2025 documented as of this encounter Visit Diagnoses Diagnosis Right lower quadrant pain Abdominal pain, right lower quadrant documented in this encounter Care Teams Paralegal Supervisor Relationship Specialty Start Date End Date Matthew Nesbitt MD [address] [place] [address] PCP - General FAMILY PRACTICE 06/15/19 documented as of this encounter
--- OUTSIDE RECORDS SUMMARY | 2025-05-22 02:07 | XMS_ITS | Encounter Summary ---
Author Organization [facility] Address [address] [place] [id number] Care Team Providers Care Pit Furnace Melter Name Role Phone Matthew Nesbitt MD Primary Care Provider Encounter Details Date Type Department Care Team (Latest Contact Info) Description 05/21/2025 Travel Social History Tobacco Use Types Packs/Day [...] on filedocumented in this encounter Care Teams Pit Furnace Melter Relationship Specialty Start Date End Date Matthew Nesbitt MD [address] [place] [address] PCP - General FAMILY PRACTICE 06/15/19 documented as of this encounter
--- OUTSIDE RECORDS SUMMARY | 2025-05-22 02:07 | XMS_ITS | Clinical Summary ---
Author Organization [facility] Address [facility] [place] [address] Care Team Providers Care Certified Prosthetist Vice President Name Role Phone Matthew Nesbitt MD Primary Care Provider [phone] Allergies No known active allergies Medications losartan [...] 3 Day Supply 12 tablet 06/15/2019 Active Encounters Date Type Department Care Team Description 05/21/2025 8:00 AM CDT Hospital Encounter [facility] [address] [place] [address] Fide Jacobs MD Arrived 05/21/2025 Travel from Last 3 Months Social History Tobacco Use Types Packs/Day Years [...] 7:56 PM CDT Height 167.6 cm (5' 6) 06/15/2019 7:56 PM CDT Body Mass Index 36.96 06/15/2019 7:56 PM CDT Plan of Treatment Health Maintenance Due Date Last Done Comments Annual Physical 1984 Hepatitis B Vaccines (1 of 3 - 19+ 3-dose series) 2000 HPV Vaccines (1 - 3-dose SCD M series) 2008 COVID-19 Vaccine (2023-2 5 season) 2025 DTaP, Tdap and Td Vaccines ( 3 - Td or Tdap) 05/01/2033 05/01/2023, 11/15/2012 Hepatitis C Completed 09/07/2019 Meningococcal B Vaccine Aged Out No l onger eligible based on patient's age to complete this topic Meningococcal Vaccine Aged Out No devonte melinda eligible based on patient's age to complete this topic Pneumococcal Vaccine: Pediatrics (0 to 5 Years) and At-Risk Patients (6 to 49 Years) Aged Out No longer eligible b ased on patient's age to complete this topic RSV Immunizations Under 20 Months Aged Out No longer eligible b ased on patient's age to complete this topic Insurance [employer] Care Teams Certified Prosthetist Vice President Relationship Specialty Start Date End Date Matthew Nesbitt MD [address] [place], [place] [id number] PCP - General FAMILY PRACTICE 06/15/19
--- OUTSIDE RECORDS SUMMARY | 2025-05-22 02:07 | XMS_ITS | Clinical Summary ---
Author Organization [facility] Address [address] [place] [address] Phone Care Team Providers Care Senior Software Development Engineer Name Role Phone Matthew Nesbitt MD Primary Care Provider [phone] Allergies No known active allergies Medications losartan [...] on file Legal Sex Male 7:55 AM LEARNING AND DEVELOPMENT COORDINATOR Gender Identity Not on file Sexual Orientation Not on file Last Filed Vital Signs Vital Sign Reading Time Taken Comments Blood Pressure 126/95 10/16/2019 12:59 PM LEARNING AND DEVELOPMENT COORDINATOR Pulse 106 10/16/2019 12:59 PM LEARNING AND DEVELOPMENT COORDINATOR Temperature 36 C (96.8 F) 10/16/2019 12:59 PM LEARNING AND DEVELOPMENT COORDINATOR Respiratory Rate 14 10/16/2019 12:59 PM LEARNING AND DEVELOPMENT COORDINATOR Oxygen Saturation 100% 10/16/2019 12:59 PM LEARNING AND DEVELOPMENT COORDINATOR Inhaled Oxygen Concentration - - Weight 102.1 kg (225 lb) 09/28/2019 3:00 PM LEARNING AND DEVELOPMENT COORDINATOR Height 167.6 cm (5' 6) 09/28/2019 3:00 PM LEARNING AND DEVELOPMENT COORDINATOR Body Mass Index 36.32 09/28/2019 3:00 PM LEARNING AND DEVELOPMENT COORDINATOR Plan of Treatment Health Maintenance Due Date Last Done Comments Hepatitis B Immunization (1 of 3 - 19+ 3-dose series) 2000 Human Papillomavirus (HPV) Immunization (1 - 3-dose SCDM series) 2008 Influenza Immunization (#1) 2025 SARS-COV-2 Immunization ( season) 2025 Respiratory Syncytial Virus (RSV) Immunization (Adult) (1 - 1-dose 75+ series) 2056 DTaP/Tdap/Td Immunization Discontinued 11/15/2012 TdaP Immunization Completed 11/15/2012 Hepatitis C Virus (HCV) Screening Completed 020 Meningococcal Immunization (ACWY) Aged Out No longer eligible based on patient's age to complete this topic Pneumococcal Immunization Combined Aged Out No longer eligible based on [...] (AHP) (09/07/2019) Blood specimen (specimen) Yolie Allen CLEAN UP SUPERVISOR, PHYSICAL SECURITY ENGINEER HEMATOLOGY ORDERA BLES Final Result from Last 3 Months or Most Recently Relevant to Health Maintenance Insurance [place] [place] Care Teams Senior Software Development Engineer Relationship Specialty Start Date End Date Matthew Nesbitt MD [address] [place], [place] [id number] PCP - General Pediatrics 08/24/19
[2025-05-22 09:47] VITALS: BP 145/100; PULSE 104; RESP 18; TEMP 36.2; O2SAT 100
[2025-05-22] MEDS: LACTATED RINGERS 1,000 ML 150 ML IV CONT (09:56)
--- NOTE | 2025-05-22 10:45 | WPDANESEPPF ---
Anes - Initial Pre Proc Eval Procedure: Operation Date: 05/22/25 11:00 Proposed Procedures p Diagnostic Colonoscopy - Jose Maldonado MD Date/Time: 05/22/25 10:45 Surgeon: Jose Maldonado MD Pre Op Diagnosis: Other specified symptoms and signs involving the d Patient Data Age: 44 Gender: M Height: 1.65 m Weight: 108.8 kg Last Vital Signs Temp 97.2 F L 05/22/25 09:47 Pulse 104 H 05/22/25 09:47 Resp 18 05/22/25 09:47 BP 145/100 H 05/22/25 09:47 Pulse Ox 100 05/22/25 09:47 O2 Del Method Room Air 05/22/25 09:47 Allergies Allergy/AdvReac Type Severity Reaction Status Date / Time No Known Allergies Allergy Verified 05/22/25 09:46 Home Medications ?Medication ?Instructions ?Recorded ?Confirmed ?Type losartan 25 mg tablet 25 mg PO DAILY 07/15/19 05/22/25 History Patient hx anesthesia problems: none Family hx anesthesia problems: none Results Review: All pre-operative results and documents have been reviewed as part of the pre-operative evaluation. [facility] Past Medical History Medical History Hypertension Surgical History Surgical History Hx of bilateral inguinal hernia repair robo BIH repair w mesh 01/04/25 Fide Jacobs MD Social History Social History Smoking status: Never smoker Alcohol intake: never Substance use: never Substance use type: does not use Do You Feel Safe in your Home?: Yes Lack of Transportation: No Lack of Food: Never True Current Housing: I Have Housing Concerned About Future Housing: No Difficulty Paying Gas/Electric Bills: No Difficulty Paying for Meds: No Currently Unemployed: No Education: High School Diploma/GED Living arrangements: with family Gender identity (if verbalized by the patient): Male Spiritual care concerns: No Anes - Eval Final PreProcedure Day of Procedure 05/22/25 10:45 Patient weight: obese Lungs: normal air movement Airway: Mallampati scale (Missing many upper teeth, chips. ) class II Neurological: alert and oriented Last oral intake: >/= 8 hours ASA classification: II Emergent: no Anesthetic plan: proceed Anesthesia type and monitoring: general GIVS and standard monitoring Results Review: All pre-operative results and documents have been reviewed as part of the pre-operative evaluation. HTN, BMII 39. Informed Consent: The patient's anesthetic plan and its attendant risks and benefits were discussed with the patient/family/POA. Questions were solicited and answers provided to the satisfaction of the patient/family/POA.
--- NOTE | 2025-05-22 10:52 | PM.IMHP ---
H&P: HPI History of Present Illness Date/Time: 05/22/25 10:52 Chief Complaint: Rectal pain Narrative: The patient is referred for colonoscopy due to chronic, recurrent rectal pain/ discomfort for several months. This is not associated with weight loss, change in bowel habits or rectal bleeding. Review of Systems Review of Systems: All systems reviewed & are unremarkable except as noted in HPI and below PMFSH Past Medical History Medical History Hypertension Surgical History Surgical History Hx of bilateral inguinal hernia repair robo BIH repair w mesh 01/04/25 Fide Jacobs MD Social History Social History Smoking status: Never smoker Alcohol intake: never Substance use: never Substance use type: does not use Do You Feel Safe in your Home?: Yes Lack of Transportation: No Lack of Food: Never True Current Housing: I Have Housing Concerned About Future Housing: No Difficulty Paying Gas/Electric Bills: No Difficulty Paying for Meds: No Currently Unemployed: No Education: High School Diploma/GED Living arrangements: with family Gender identity (if verbalized by the patient): Male Spiritual care concerns: No Meds Home Medications and Allergies Home Medications ?Medication ?Instructions ?Recorded ?Confirmed ?Type losartan 25 mg tablet 25 mg PO DAILY 07/15/19 05/22/25 History Allergies Allergy/AdvReac Type Severity Reaction Status Date / Time No Known Allergies Allergy Verified 05/22/25 09:46 Vital Signs Vital Signs - 24 hr 05/22/25 09:47 Temperature 97.2 F L Pulse Rate 104 H Respiratory Rate 18 Blood Pressure 145/100 H Pulse Oximetry 100 Oxygen Delivery Room Air Exam Const: General: cooperative and healthy appearing Resp: Effort & Inspection: normal respiratory effort and able to speak in complete sentences Auscultation: clear to auscultation bilaterally Cardio: Rate: regular rate Rhythm: regular rhythm GI: Inspection: normal to inspection GI Palp: No No hepatosplenomegaly present Auscultation: normal bowel sounds Rectal Exam: deferred Skin: General skin exam: normal color Psych: Appearance: grossly normal Mental Status: mental status grossly normal Assessment and Plan Assessment and plan (1) Rectal pressure: Code(s): R19.8 - Other specified symptoms and signs involving the digestive system and abdomen Status: Acute Assessment and Plan: The patient is deemed a good candidate for the procedure. Consent signed. Will proceed.
[2025-05-22 11:12] VITALS: BP 146/63; PULSE 96; RESP 18; O2SAT 96
[2025-05-22 11:22] VITALS: BP 138/90; PULSE 94; RESP 18; O2SAT 96
[2025-05-22 11:32] VITALS: BP 129/90; PULSE 89; RESP 16; O2SAT 99
== END 2025-05-22 11:44 | disposition home or self-care (01) ==
PROVIDERS: PCP Family Medicine; Referring Provider Nurse Practitioner; Visit Provider Internal Medicine Gastroenterology
PROC: 0DJD8ZZ Inspection of Lower Intestinal Tract, Via Natural or Artificial Opening Endoscopic (ICD-10-PCS; CPT 45378; principal; 2025-05-22 11:00)
DX: R19.8 Other specified symptoms and signs involving the digestive system and abdomen (principal); I10 Essential (primary) hypertension; E66.9 Obesity, unspecified; Z68.39 Body mass index [BMI] 39.0-39.9, adult; Z98.890 Other specified postprocedural states
CPT/HCPCS: 45378; J2003; J2704; J7120

== ENCOUNTER 2025-05-28 16:11 | Outpatient (CLI) | payer OTHER, SELFPAY ==
[2025-05-28 16:24] LABS: Hematocrit 42.6 % (40.0-54.0); Hemoglobin 14.1 g/dL (14.0-18.0); Immature Granulocyte Percent A 0.5 % (0.0-0.0); Lymphocytes Absolute Auto 3.54 K/mm3 (1.10-4.50); Mean Corpuscular HGB Conc 33.1 g/dL (32-36); Mean Corpuscular Hemoglobin 26.6 pg (27.0-31.0); Mean Corpuscular Volume 80.2 fL (78.0-102.0); Nucleated Red Blood Cells Absolute Auto 0.00 K/mm3 (0.00-0.00); Nucleated Red Blood Cells Perc 0.0 % (0-0.0); Platelet Count Result 346 K/mm3 (150-420); Red Blood Count 5.31 M/mm3 (4.70-6.10); White Blood Count 11.3 K/mm3 (4.8-10.8)
[2025-05-28 16:45] LABS: Alanine Aminotransferase 47 U/L (6-50); Albumin Level 4.5 g/dL (3.5-5.1); Alkaline Phosphatase 86 U/L (38-126); Anion Gap 9 mmol/L (4-12); Aspartate Amino Transferase 35 U/L (17-59); Bilirubin,Total 0.5 mg/dL (0.2-1.3); Blood Urea Nitrogen 12 mg/dL (9-20); Calcium 10.0 mg/dL (8.4-10.2); Carbon Dioxide 27 mmol/L (22-30); Chloride 105 mmol/L (98-107); Estimated Glomerular Filt Rate > 60; Glucose 144 mg/dL (65-110); Osmolality Calculated 294 mOsm/kg (285-295); Potassium 4.5 mmol/L (3.4-5.0); Sodium 141 mmol/L (137-145); Total Protein 8.5 g/dL (6.3-8.2)
--- OUTSIDE RECORDS SUMMARY | 2025-05-28 16:51 | XMS_ITS | Clinical Summary ---
Author Organization 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 Name Role Phone Matthew Nesbitt MD Primary Care Provider [phone] Allergies No known active allergies Medications losartan [...] Care Team Description 05/21/2025 8:00 AM CDT - 05/21/2025 11:59 PM CDT Hospital Encounter [facility] [address] [place] [address] Fide Jacobs MD Discharge Disposition: Home or Self Care (Routine Discharge) 05/21/2025 Travel from Last 3 Months Social [...] Name Priority Date/Time Associated Diagnosis Comments US GROIN NON VASCULAR Routine 05/21/2025 8:52 AM CDT Right lower quadrant pain from Last 3 Months Results * US GROIN NON VASCULAR (05/21/2025 8:52 AM CDT) Anatomical Region Laterality Modality Pelvis Ultrasound 05/26/2025 10:1 5 PM CDT Impressions 05/26/2025 10:21 PM CDT IMPRESSION: 1. No ultrasound evidence of a right inguinal hernia. 2. Nonspecific lymph node findings. Referred By: FIDE JACOBS Interpreted By: Tomás Ny MD, 05/26/2025 10:15 PM Narrative 05/26/2025 10:21 PM [address]T [address] [place] [address] EXAM: US GROIN NON VASCULAR DATE: 05/21/2025 COMPARISON: None INDICATION: Right lower quadrant pain. Hernia repair in December. TECHNIQUE: Grayscale and color Doppler imaging of the right inguinal region. FINDINGS: There are 3 inguinal lymph nodes present. Each has the same diffusely hyperechoic appearance. Normal short axis dimensions. Mild elongation which can be seen normally in this location. Length measurements of 2.3, 2.6, and 2.8 cm respectively. Multiple cine series were obtained with intermittent Valsalva maneuver. No ultrasound evidence of an inguinal hernia. Higher anatomic detail would require CT. Procedure Note Tomás Ny MD - 05/26/[address] [place] [address] EXAM: US GROIN NON VASCULAR DATE: 05/21/2025 COMPARISON: None INDICATION: Right lower quadrant pain. Hernia repair in December. TECHNIQUE: Grayscale and color Doppler imaging of the right inguinalregion. FINDINGS: There are 3 inguinal lymph nodes present. Each has the samediffusely hyperechoic appearance. Normal short axis dimensions. Mildelongation which can be seen normally in this location. Lengthmeasurements of 2.3, 2.6, and 2.8 cm respectively. Multiple cine series were obtained with intermittent Valsalva maneuver.No ultrasound evidence of an inguinal hernia. Higher anatomic detailwould require CT. IMPRESSION: 1. No ultrasound evidence of a right inguinal hernia. 2. Nonspecific lymph node findings. 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
--- OUTSIDE RECORDS SUMMARY | 2025-05-28 16:51 | XMS_ITS | Clinical Summary ---
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 Gender Identity Not on file Sexual Orientation Not on file Last Filed Vital Signs Vital Sign Reading Time Taken Comments Blood Pressure 126/95 10/16/2019 12:59 PM DROP FORGE HAND Pulse 106 10/16/2019 12:59 PM DROP FORGE HAND Temperature 36 C (96.8 F) 10/16/2019 12:59 PM DROP FORGE HAND Respiratory Rate 14 10/16/2019 12:59 PM DROP FORGE HAND Oxygen Saturation 100% 10/16/2019 12:59 PM DROP FORGE HAND Inhaled Oxygen Concentration - - Weight 102.1 kg (225 lb) 09/28/2019 3:00 PM DROP FORGE HAND Height 167.6 cm (5' 6) 09/28/2019 3:00 PM DROP FORGE HAND Body Mass Index 36.32 09/28/2019 3:00 PM DROP FORGE HAND Plan of Treatment Health Maintenance Due Date [...] (AHP) (09/07/2019) Blood specimen (specimen) 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
[2025-05-29 15:42] LABS: Hemoglobin A1C 6.7 % (<5.7)
== END 2025-05-28 16:12 | disposition home or self-care (01) ==
LOC: CHSLAB 16:12
PROVIDERS: PCP Family Medicine; Visit Provider Family Medicine
DX: I10 Essential (primary) hypertension (principal); R73.9 Hyperglycemia, unspecified
CPT/HCPCS: 36415; 80053; 83036; 85025